=== PATIENT | female | born 1985 | race African-American/Black ===

== ENCOUNTER 2023-12-04 13:39 | Emergency (ER) | payer BC, SELFPAY ==
--- NOTE | ~2023-12-04 | CT_ITS ---
CT abdomen pelvis w con Ordering provider: Jimi Chaney MD History: 38 years Female with . Diffuse abdominal chela. Epigastric and bilat lwr . Comparison: None. Technique: CT abdomen and pelvis with IV and without oral contrast. Automated exposure control and it erative reconstruction technique were employed. The dose-length product was 210.45 mGy-cm. 100 mL Omn ipaque 350 was given IV. Findings: VISUALIZED LOWER CHEST: Normal. UPPER ABDOMINAL ORGANS: Liver: Normal. Gallbladder: Status post cholecystectomy. Spleen: Normal. Stomach/duodenum: Normal. Pancreas: Normal. Adrenals: Normal. Kidneys: Normal. PELVIC ORGANS: The bladder is normal. Uterus: Bulky. Hypodense area seen in the right ovary most lik fabrice a ruptured follicle. BOWEL AND MESENTERY: Colon: No evidence of diverticulitis. Normal appendix. Small Bowel: Slight thickening of the wall in the jejunal area which may indicate enteritis. Clinical correlation advised. No obstruction. Peritoneum/mesentery: No free air or free fluid. No mesenteric lymphadenopathy. RETROPERITONEUM: Normal aorta. No retroperitoneal lymphadenopathy. MUSCULOSKELETAL: Superficial soft tissues: The superficial soft tissues are normal. Bones: Normal spine. IMPRESSION: 1. No evidence of appendicitis, diverticulitis or intestinal obstruction. 2. Ruptured follicle in the right. 3. Slight thickening of the jejunal loops wall which may indicate enteritis. Clinical correlation ad vised. Reviewed, dictated and finalized at location A. IMPRESSION: 1. No evidence of appendicitis, diverticulitis or intestinal obstruction. 2. Ruptured follicle in the right. 3. Slight thickening of the jejunal loops wall which may indicate enteritis. C linical correlation advised.
--- NOTE | ~2023-12-04 | XR_ITS ---
XR chest 1V portable Ordering provider: Jimi Chaney MD History: 38 years Female with . Chest pain . Comparison: None. FINDINGS: MEDIASTINUM: The cardiac silhouette is not enlarged. LUNGS: No infiltrates, effusions or pneumothorax. OTHER: No free air under the diaphragm. IMPRESSION: No acute cardiopulmonary pathology. Reviewed, dictated and finalized at location A.
[2023-12-04 13:44] VITALS: BP 114/83; PULSE 77; RESP 16; TEMP 36.7; O2SAT 100
[2023-12-04 14:01] VITALS: BP 113/73; PULSE 81; RESP 17; O2SAT 99
--- NOTE | 2023-12-04 14:02 | ECG_ITS ---
Test Date: 2023-12-04 14:32:06 Measurements Intervals [place] Rate: 63 P: 78 WV: 145 QRS: 84 QRSD: 89 T: 51 QT: 379 QTc: 390 Interpretive Statements SINUS RHYTHM No previous ECG available for comparison Electronically Signed On 12-05-2023 09:48:52 CDT by Jim Rojas M.D.
[2023-12-04 14:16] VITALS: BP 109/63; O2SAT 100
[2023-12-04] MEDS: SODIUM CHLORIDE 0.9% IV 1,000 ML 999 ML IV CONT (14:18)
[2023-12-04] MEDS: MAG HYDROX/AL HYDROX/SIMETH 30 ML UDC PO (14:20)
[2023-12-04] MEDS: FAMOTIDINE 20 MG/2 ML VIAL IV PUSH (14:20)
[2023-12-04 14:23] LABS: Basophils Percent Auto 0.5 % (0.2-1.2); Eosinophils Percent Auto 0.5 % (0-4.4); Hematocrit 35.1 % (37.0-47.0); Hemoglobin 11.6 g/dL (12.0-15.0); Immature Granulocyte Absolute 0.02 K/mm3 (0.00-0.031); Immature Granulocyte Percent A 0.2 % (0-0.5); Lymphocytes Absolute Auto 2.76 K/mm3 (0.9-3.2); Lymphocytes Percent Auto 32.4 % (18.3-44.2); Mean Corpuscular Hemoglobin 30.7 pg (26-34); Mean Corpuscular Volume 92.9 fl (80-100); Mean Platelet Volume 9.4 fl (7.4-10.4); Monocytes Absolute Auto 0.7 K/mm3 (0.1-0.6); Monocytes Percent Auto 7.9 % (2.6-8.5); Neutrophils Percent Auto 58.5 % (45.5-73.1); Platelet Count Result 266 k/mm3 (150-375); Red Blood Count 3.78 M/mm3 (4.2-5.4); Red Cell Distribution Width 11.9 % (11.5-14.5); White Blood Count 8.5 K/mm3 (4.5-10.0)
[2023-12-04 14:33] LABS: Prothrombin Time 13.2 Seconds (11.1-14.7)
[2023-12-04 14:34] LABS: Partial Thromboplastin Time 28.5 Seconds (22.3-36.8)
[2023-12-04 14:35] LABS: Alanine Aminotransferase 11 U/L (6-35); Albumin Level 4.1 g/dL (3.5-5.1); Alkaline Phosphatase 62 U/L (38-126); Anion Gap 7 mmol/L (4-12); Aspartate Amino Transferase 25 U/L (14-36); Bilirubin,Total 0.2 mg/dL (0.2-1.3); Blood Urea Nitrogen 17 mg/dL (7-17); Calcium 9.2 mg/dL (8.4-10.2); Carbon Dioxide 25 mmol/L (22-30); Chloride 104 mmol/L (98-107); Estimated CRCL calculation 54 ml/min; Estimated Glomerular Filt Rate > 60; Glucose 107 mg/dL (65-110); Lipase 90 U/L (23-300); Magnesium 1.9 mg/dL (1.6-2.3); Sodium 136 mmol/L (137-145)
[2023-12-04 15:23] LABS: Add Urine Microscopic? NO; Appearance Urine Clear (Clear); Bilirubin Urine Negative (Negative); Blood Urine Negative (Negative); Color Urine Yellow (Yellow); Glucose Urine UA Negative (Negative); Ketones Urine Negative (Negative); Leukocyte Esterase Ur Negative LEU/UL (Negative); Nitrate Urine Negative (Negative); Protein Urine Negative (Negative); Specific Grav Ur 1.024 (1.001-1.035); Urobilinogen Urine 0.2 mg/dL (<2.0)
[2023-12-04 15:37] LABS: BEDSIDEPREGUCG Negative
[2023-12-04 15:40] VITALS: BP 111/51; PULSE 74; O2SAT 100
[2023-12-04 15:48] LABS: Amphetamine Screen Urine Negative (Negative); Barbiturate Screen Urine Negative (Negative); Benzodiazepines Screen Urine Negative (Negative); Cannabinoid Screen Urine Negative (Negative); Cocaine Screen Urine Negative (Negative); Methadone Screen Urine Negative (Negative); Opiate Screen Urine Negative (Negative); Phencyclidine Screen Urine Negative (Negative)
--- NOTE | 2023-12-04 15:57 | ED.GENADULT ---
HPI - General Adult General Chief complaint: Abdominal Pain Stated complaint: abd pain Time Seen by Provider: 12/04/23 13:52 History of Present Illness HPI narrative: This is a 38-year-old female presenting ED with abdominal pain. Patient describes the pain a burning pain in the epigastric area that is associated with some throat discomfort. Pain is nonradiating. Mild intensity and constant. Patient has never had pain like this before she notes no exacerbating or alleviating factors. She denies fevers chills nausea vomiting or diarrhea. Related Data Allergies Allergy/AdvReac Type Severity Reaction Status Date / Time No Known Allergies Allergy Verified 12/04/23 13:49 Exam Narrative: APPEARANCE: No apparent distress. Well-appearing Head: atraumatic. No erythema or exudates in the posterior oropharynx EYES: EOMI, NOSE: Atraumatic NECK: Trachea midline RESPIRATORY: No increased rate of breathing clear to auscultation CARDIOVASCULAR: RRR, ABDOMINAL: Tenderness palpation the epigastric area without guarding or rebound MUSCULOSKELETAl: No obvious deformities NEURO: Alert. Moving 4/4 extremities SKIN:: Warm, dry. Normal color PSYCHIATRIC: Normal affect Course Vital Signs Vital signs: Vital Signs Temperature 98.0 F 12/04/23 13:44 Pulse Rate 77 12/04/23 13:44 Respiratory Rate 16 12/04/23 13:44 Blood Pressure 114/83 12/04/23 13:44 Pulse Oximetry 100 12/04/23 13:44 Oxygen Delivery Room Air 12/04/23 13:44 Temperature 98.0 F 12/04/23 13:44 Pulse Rate 74 12/04/23 15:40 Respiratory Rate 17 12/04/23 14:01 Blood Pressure 111/51 L 12/04/23 15:40 Pulse Oximetry 100 12/04/23 15:40 Oxygen Delivery Room Air 12/04/23 13:44 Medical Decision Making [facility] Narrative Medical decision making narrative: -Course: 38-year-old female presenting epigastric pain and throat discomfort symptoms which are most consistent with reflux. She was given Maalox and Pepcid with improvement in her pain. Laboratory studies unremarkable. CT showed some mild inflammation of the jejunum which is consistent with enteritis. On re-evaluation patient is resting comfortably. Patient will be discharged course Pepcid instructed to follow-up with her primary care physician. Given return precautions. -DDX includes but is not limited to: Gastritis, GERD -Independent interpretation of studies: Labs reviewed. Imaging reviewed -Interventions: Maalox, Pepcid 1 L normal saline -Shared decision making / Disposition: Discharge -RX pepcid Vital Signs Vital Signs: Vital Signs Temperature 98.0 F 12/04/23 13:44 Pulse Rate 77 12/04/23 13:44 Respiratory Rate 16 12/04/23 13:44 Blood Pressure 114/83 12/04/23 13:44 Pulse Oximetry 100 12/04/23 13:44 Oxygen Delivery Room Air 12/04/23 13:44 Temperature 98.0 F 12/04/23 13:44 Pulse Rate 74 12/04/23 15:40 Respiratory Rate 17 12/04/23 14:01 Blood Pressure 111/51 L 12/04/23 15:40 Pulse Oximetry 100 12/04/23 15:40 Oxygen Delivery Room Air 12/04/23 13:44 Lab Data 12/04/23 14:12 12/04/23 14:12 Labs: Lab Results 12/04/23 12/04/23 12/04/23 Range/Units 13:55 14:12 14:12 WBC Cancelled 8.5 RBC Cancelled Hgb Hct MCV MCH MCHC RDW Plt Count MPV Immature Gran % (Auto) Neut % (Auto) Lymph % (Auto) Custer % (Auto) Eos % (Auto) Baso % (Auto) Lymph # (Auto) [place] # (Auto) Eos # (Auto) Baso # (Auto) Abs Immat Gran (auto) Absolute Neuts (auto) Absolute Nucleated RBC Nucleated RBC % % Immature Plt Fraction PT (11.1-14.7) Seconds INR APTT (22.3-36.8) Seconds Sodium Potassium Chloride Carbon Dioxide Anion Gap BUN Creatinine Estim Creat Clear Calc Estimated GFR Glucose Calcium Magnesium (1.6-
== END 2023-12-04 16:14 | disposition home or self-care (01) ==
PROVIDERS: Emergency Provider Emergency Medicine
DX: K21.9 Gastro-esophageal reflux disease without esophagitis (principal)
CPT/HCPCS: 36415; 71045; 74177; 80053; 80307; 81003; 81025; 83690; 83735; 85025; 85610; 85730; 93005; 96361; 96374; 99284; A9270; J7030; Q9967

== ENCOUNTER 2024-04-06 15:32 | Emergency (ER) | payer OTHER, SELFPAY ==
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
[2024-04-06 16:15] VITALS: BP 113/84; PULSE 77; RESP 20; TEMP 37.4; O2SAT 100
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
[2024-04-06 17:10] LABS: BEDSIDEPREGUCG Negative (Negative)
[2024-04-06] MEDS: traMADol HCL (*CRX) 50 MG TABLET PO (17:29)
[2024-04-06] MEDS: ORPHENADRINE CITRATE 100 MG TABLET.ER PO (17:29)
[2024-04-06 17:55] VITALS: PULSE 78; RESP 20; O2SAT 100
== END 2024-04-06 18:02 | disposition home or self-care (01) ==
LOC: ANHED 17:57
PROVIDERS: Emergency Provider Nurse Practitioner Family
DX: S16.1XXA Strain of muscle, fascia and tendon at neck level, initial encounter (principal); S29.012A Strain of muscle and tendon of back wall of thorax, initial encounter; V43.52XA Car driver injured in collision with other type car in traffic accident, initial encounter
CPT/HCPCS: 72125; 72128; 73030; 81025; 99284; A9270

== ENCOUNTER 2024-05-21 09:29 | Outpatient (CLI) | payer OTHER, SELFPAY ==
--- OUTSIDE RECORDS SUMMARY | 2024-05-21 10:02 | XMS_ITS | Patient Health Record ---
Author Organization [facility] Address [address] [place] [address] Care Team Providers Care Security Operations Center Analyst Name Role Phone Lacy Alicia Primary Care Provider [phone] Teresa Benson [phone] Allergies No Known Allergies Results Component Value Reference Range Notes Hemoglobin A1c* Reviewed date:12/30/2023 08:30:05 AM Interpretation:Normal Performing Lab:[facility], [address] [facility], Phone - [phone], Director - Marlena Notes/Report: Hemoglobin A1c 5.1 4.8-5.6 % . Prediabetes: 5.7 - 6.4 Diabetes: >6.4 Glycemic control for adults with diabetes: <7.0 CBC With Differential/Platel et* Reviewed date:12/30/2023 08:30:05 AM Interpretation:Normal Performing Lab:[facility], [address] [facility], Phone - [phone], Director - PhDMeron Notes/Report: WBC 8.7 3.4-10.8 x10E3/uL RBC 3.90 3.77-5.28 x10E6/uL Hemoglobin 11.8 11.1-15.9 g/dL Hematocrit 38.0 34.0-46.6 % MCV 97 79-97 fL MCH 30.3 26.6-33.0 pg MCHC 31.1 31.5-35.7 g/dL RDW 11.5 11.7-15.4 % Platelets 356 150-450 x10E3/uL Neutrophils 56 Not Estab. % Lymphs 34 Not Estab. % Monocytes 7 Not Estab. % Eos 2 Not Estab. % Basos 1 Not Estab. % Neutrophils (Absolute) 4.9 1.4-7.0 x10E3/uL Lymphs (Absolute) 2.9 0.7-3.1 x10E3/uL Monocytes(Absolute) 0.6 0.1-0.9 x10E3/uL Eos (Absolute) 0.1 0.0-0.4 x10E3/uL Baso (Absolute) 0.1 0.0-0.2 x10E3/uL Immature Granulocytes 0 Not Estab. % Immature Grans (Abs) 0.0 0.0-0.1 x10E3/uL Vitamin D, 25-Hydroxy* Reviewed date:12/30/2023 08:30:06 AM Interpretation:Low Performing Lab:[facility] [address] [facility] [facility], Phone - [phone], Director - PhDMeron Notes/Report: Vitamin D, 25-Hydroxy 17.6 30.0-100.0 ng/mL Vitamin D deficiency has been defined by the [place] of Medicine and an Endocrine Society practice guideline as a level of serum 25-OH vitamin D less than 20 ng/mL (1,2). The Endocrine Society went on to further define vitamin D insufficiency as a level between 21 and 29 ng/mL (2). 1. IOM ([place] of Medicine). 2010. Dietary reference intakes for calcium and D. [place]: The National Academies Press. 2. Billy MF, Prakash NC, Robert DAVIS, et al. Evaluation, treatment, and prevention of vitamin D deficiency: an Endocrine Society clinical practice guideline. JCEM. 2010; 96(7):1911-30. Lipid Panel* Reviewed date:12/30/2023 08:30:06 AM Interpretation:Normal Performing Lab:[facility], [address], [place], Phone - [phone], Director - PhDMeron Notes/Report: Cholesterol, Total 175 100-199 mg/dL Triglycerides 47 0-149 mg/dL HDL Cholesterol 68 >39 mg/dL VLDL Cholesterol Brandon 10 5-40 mg/dL LDL Chol Calc ([facility]) 97 0-99 mg/dL CMP 14 Comprehensive Metabol ic Panel* Reviewed date:12/30/2023 08:30:06 AM Interpretation:Abnormal Performing Lab:[facility], [address] [facility], Phone - [phone], Director - [facility] Notes/Report: Glucose 95 70-99 mg/dL BUN 6 6-20 mg/dL Creatinine 0.90 0.57-1.00 mg/dL eGFR 85 >59 mL/min/1.73 BUN/Creatinine Ratio 7 9-23 Sodium 137 134-144 mmol/L Potassium 4.8 3.5-5.2 mmol/L Chloride 103 96-106 mmol/L Carbon Dioxide, Total 23 20-29 mmol/L Calcium 9.4 8.7-10.2 mg/dL Protein, Total 6.8 6.0-8.5 g/dL Albumin 4.4 3.9-4.9 g/dL Globulin, Total 2.4 1.5-4.5 g/dL Bilirubin, Total 0.2 0.0-1.2 mg/dL Alkaline Phosphatase 63 44-121 IU/L AST (SGOT) 18 0-40 IU/L ALT (SGPT) 12 0-32 IU/L TSH Rfx on Abnormal to Free T4 Reviewed date:12/30/2023 08:30:06 AM Interpretation:Normal Performing Lab:[facility] [place], [address] [facility], Phone - [phone], Director - [facility] Notes/Report: TSH 1.290 0.450-4.500 uIU/mL Reason For Referral No Information Medications Medication SIG (Take, Route, Frequency, Duration) Notes Start Date End Date Status DHA 300 MG as directed Orally o nce daily for 30 days 04/28/2020 Active Vitamins 28-0.8 MG 1 tablet Orally Once a day for 30 days 12/25/2023 Active Omeprazole 20 MG 1 capsule 30 minutes before morning meal Orally Once a day for 30 day(s) 05/28/2022 Not-Taking ProAir HFA 108 (90 Base) MCG/ACT 1 puff as needed Inhalation every 4 hrs for 14 days 04/26/2021 Not-Taking Cetirizine HCl 10 MG 1 tablet Orally Onc e a day for 30 day(s) 04/28/2020 Not-Taking Naproxen 500 MG TAKE 1 TABLET BY RYLEE TH EVERY 12 HOURS WITH FOOD OR MILK NEEDED for 30 Not-Miguel ing Famotidine 40 MG 1 tablet Orally Once a day for 30 days 12/25/2023 Active Vitamin D (Ergocalciferol) 1.25 MG (15673 UT) TAKE 1 CAPSULE BY MOUTH 1 TIME WEEKLY FOR 8 WEEKS Orally Once weekly for 30 days Active Social History Tobacco Use: Social History Observation Description Date Details (start date - stop date) Current Smoker NA - NA Sex Assigned At : Social History Observation Description Sex Assigned At Female Dont use, Tobacco Use/Smoking Question Answer Notes Are you a former smoker How long has it been since you last smoked? 1-5 years Alcohol Screen (Audit-C) Question Answer Notes Did you have a drink containing alcohol in the p ast year? Yes Tobacco Control (Standard) Question Answer Notes Tobacco use: Current smoker Problems Problem Type SNOMED Code ICD Code Onset Dates Problem Status W/U Status Risk Notes Problem Vitamin D deficiency (67100457) Vitamin D deficiency, unspecified (E55.9) Active confirmed Problem Tobacco user (896082097) Nicotine dependence, unspecified, uncomplicated (F17.200) Active confirmed Problem Abnormal uterine bleeding (03918236238633) Abnormal uterine and vaginal bleeding, unspecified (N93.9) Active confirmed Problem Gastroesophageal reflux disease (993447515) GERD (gastroesophagea l reflux disease) (K21.9) Active confirmed Problem Vitamin D deficiency (23697692) Vitamin D deficiency (E55.9) Active confirmed Problem (37600318) (Z33.1) Active confirmed Problem Impacted cerumen of both ears (4481895755754364) Impacted cerumen of both ears (H61.23) Active confirmed Problem 250183339 Migraine without aura and without status migrainosus, not intractable (G43.009) Active confirmed Problem 939257822 Family planning (Z30.09) Active confirmed Problem Tobacco use (087332538) Tobacco use disorder (F17.200) Active confirmed Problem Right tubal without intrauterine (O00.101) Active confirmed Problem Left tubal with intrauterine (O00.112) Active confirmed Problem 013632222 Seasonal allergic rhinitis, unspecified trigger (J30.2) Active confirmed Vital Signs Heart Rate 67 /min 12/25/2023 Respiratory Rate 16 /min 12/25/2023 Blood pressure diastolic 69 mm Hg 12/25/2023 Oximetry 99 % 12/25/2023 Height 63 in 12/25/2023 Blood pressure systolic 104 mm Hg 12/25/2023 Weight 125.2 lbs 12/25/2023 BMI 22.18 kg/m2 12/25/2023 Encounters Encounter Location Date Provider Diagnosis [address] [address] 07/04/2023 Lacy Alicia Nicotine dependence, unspecified, uncomplicated F17.[address] [address] 12/25/2023 Teresa Benson Nicotine dependence, unspecified, uncomplicated F17.200 ; Pre-conception counseling Z31.69 ; Vitamin D deficiency, unspecified E55.9 ; Acid reflux K21.9 ; Screening for deficiency anemia Z13.0 ; Screening for metabolic disorder Z13.228 ; Screening for diabetes mellitus Z13.1 ; Screening for thyroid disorder Z13.29 and Screening for hyperlipidemia Z13.[address] [address] 12/25/2023 Teresa Benson Screening for diabet es mellitus Z13.1 ; Screening for deficiency anemia Z13.0 ; UTI symptoms R39.9 ; Vitamin D deficiency, unspecified E55.9 ; Screening for hyperlipidemia Z13.220 ; Screening for metabolic disorder Z13.228 and Screening for thyroid disorder Z13.[address] [address] 07/05/2023 Lacy Alicia Left hand pain M79.[address] [address] 08/14/2023 Lacymaggie Alicia UTI symptoms R39.9 and Vaginal discharge N89.[address] [address] 12/30/2023 Teresa Benson Vitamin D deficiency E55.9 Assessments Encounter Date Diagnosis (ICD Code) Assessment Notes Treatment Notes Treatment Clinical Notes Section Notes 12/25/2023 Pre-conception counseling (ICD-10 - Z31.69) 12/25/2023 Screening for diabetes mellitus (ICD-10 - Z13.1) 12/30/2023 Vitamin D deficiency (ICD-10 - E55.9) 12/25/2023 Nicotine dependence, unspecified, uncomplicated (ICD-10 - F17.200) 08/14/2023 Vaginal discharge (ICD-10 - N89.8) 08/14/2023 UTI symptoms (ICD-10 - R39.9) 07/05/2023 Left hand pain (ICD-10 - M79.642) 07/04/2023 Nicotine dependence, unspecified, uncomplicated (ICD-10 - F17.200) 12/25/2023 Vitamin D deficiency, unspecified (ICD-10 - E55.9) 12/25/2023 Screening for deficiency anemia (ICD-10 - Z13.0) 12/25/2023 UTI symptoms (ICD-10 - R39.9) 12/25/2023 Acid reflux (ICD-10 - K21.9) 12/25/2023 Vitamin D deficiency, unspecified (ICD-10 - E55.9) 12/25/2023 Screening for deficiency anemia (ICD-10 - Z13.0) 12/25/2023 Screening for metabolic disorder (ICD-10 - Z13.228) 12/25/2023 Screening for hyperlipidemia (ICD-10 - Z13.220) 12/25/2023 Screening for metabolic disorder (ICD-10 - Z13.228) 12/25/2023 Screening for diabetes mellitus (ICD-10 - Z13.1) 12/25/2023 Screening for thyroid disorder (ICD-10 - Z13.29) 12/25/2023 Screening for thyroid disorder (ICD-10 - Z13.29) 12/25/2023 Screening for hyperlipidemia (ICD-10 - Z13.220) Plan Of Treatment No Information Insurance Providers Payer Name Payer Address Payer Phone Subscriber Number Group Number Insured Name Patient Relationship to Insured Coverage Start Date Coverage End Date [address] [address] [id number] Lang, Geena Self - patient is the insured 3 4 [facility] [address] [place] [address] [id number] Geena Preston Self - patient is the insured 4 [facility] [address] [place] [address] [id number] Geena Preston Self - patient is the insured 3 3 [facility] [address] [address] [place] [address] [id number] Geena Preston Self - patient is the insured 3 3 [facility] Att[facility] Claims Department [address] [place] [address] [phone] [id number] Geena Preston Self - patient is the insured 1 3 Medical (General) History Medical History History ICD Code Right tubal without intrauteri ne O00.101 Left tubal with intrauterine p regnancy O00.112 Surgical History Surgery Date(Month/Year) L ankle pins Hospitalization History Reason Date(Month/Year)
--- OUTSIDE RECORDS SUMMARY | 2024-05-21 10:02 | XMS_ITS | Clinical Summary ---
Author Organization [facility] Address [address] [place] [address]. 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 [place] [address] Kimberly Pulido DO [address] [place], [place] [id number] Health Maintenance Due Date Last Done Comments Cervical Cancer Screening Pa p Smear (Age 30 to 64) Every 3 Years 1987 Annual Physical 1990 Hepatitis C 2005 DTaP, Tdap and Td Vaccines ( 1 - Tdap) 2006 Hepatitis B Vaccines (1 of 3 - 19+ 3-dose series) 2006 Cervical Cancer Screening Pa p with HPV Testing (Age 30 to 64) Every 5 Years 2017 Cervical Cancer Screening with HPV 2017 COVID-19 Vaccine (2023-2 5 season) 2023 Influenza Adult (#1) 2024 PHQ-2 (Physician Teller) 04/22/2024 HPV Vaccines Aged Out No longer eligi ble based on patient's age to complete this topic Meningococcal B Vaccine Aged Out No l onger eligible based on patient's age to complete this topic Meningococcal Vaccine Aged Out No edwin brenna eligible based on patient's age to complete this topic Pneumococcal Vaccine: Pediat rics (0 to 5 Years) and At-Risk Patients (6 to 64 Years) Aged Out No longer eligible b ased on patient's age to complete this topic RSV Immunizations Under 20 Months Aged Out No longer eligible based on patient's age to complete this topic Insurance [facility] Care Teams Director Of First Impressions Relationship Specialty Start Date End Date Kimberly Pulido DO [address] [place] [address] PCP - General FAMILY PRACTICE 03/05/24
--- OUTSIDE RECORDS SUMMARY | 2024-05-21 10:02 | XMS_ITS ---
Author Organization [facility] Address [address] [place] [address] Care Team Providers Care Biomass Production Manager Name Role Phone Lacy Alicia Primary Care Provider Teresa Benson [phone] Results Component Value Reference Range Notes TSH Rfx on Abnormal to Free T4 Reviewed date:12/30/2023 08:30:06 AM Interpretation:Normal Performing Lab:[facility], [address] [facility] Phone - [phone], Director - Marcial Notes/Report: TSH 1.290 0.450-4.500 uIU/mL CMP 14 Comprehensive Metabol ic Panel* Reviewed date:12/30/2023 08:30:06 AM Interpretation:Abnormal Performing Lab:[facility], [address] [facility] Phone - [phone], [facility] Notes/Report: Glucose 95 70-99 mg/dL BUN 6 [...] 0-40 IU/L ALT (SGPT) 12 0-32 IU/L Lipid Panel* Reviewed date:12/30/2023 08:30:06 AM Interpretation:Normal Performing Lab:[facility] [place], [address] [facility], Phone - [phone], Director - [facility] Notes/Report: Cholesterol, Total 175 100-199 mg/dL Triglycerides 47 0-149 mg/dL HDL Cholesterol 68 >39 mg/dL VLDL Cholesterol Brandon 10 5-40 mg/dL LDL Chol Calc (NIH) 97 0-99 mg/dL CBC With Differential/Platel et* Reviewed date:12/30/2023 08:30:05 AM Interpretation:Normal Performing Lab:[facility], [address] [facility] Phone - [phone], Director - [facility] Notes/Report: WBC 8.7 3.4-10.8 x10E3/uL RBC 3.90 [...] % Immature Grans (Abs) 0.0 0.0-0.1 x10E3/uL Hemoglobin A1c* Reviewed date:12/30/2023 08:30:05 AM Interpretation:Normal Performing Lab:[facility] [place], [address] [facility], Phone - [phone], Director - Marlena Notes/Report: Hemoglobin A1c 5.1 4.8-5.6 % . Prediabetes: 5.7 - 6.4 Diabetes: >6.4 Glycemic control for adults with diabetes: <7.0 Vitamin D, 25-Hydroxy* Reviewed date:12/30/2023 08:30:06 AM Interpretation:Low Performing Lab:[facility] [place], [address] [facility], Phone - [phone], Director - Marlena Notes/Report: Vitamin D, 25-Hydroxy 17.6 30.0-100.0 ng/mL Vitamin D deficiency has been defined by the [place] of Medicine and an Endocrine Society practice guideline as a level of serum 25-OH vitamin D less than 20 ng/mL (1,2). The Endocrine Society went on to further define vitamin D insufficiency as a level between 21 and 29 ng/mL (2). 1. IOM ([place] of Medicine). 2010. Dietary reference intakes for calcium and D. [place]: The National Academies Press. 2. Billy MF, Prakash NC, Robert DAVIS, et al. Evaluation, treatment, and prevention of vitamin D deficiency: an Endocrine Society clinical practice guideline. JCEM. 2010; 96(7):1911-30. REASON FOR VISIT lab Medications Medication SIG (Take, Route, Frequency, Duration) Notes Start Date End Date Status DHA 300 MG as directed Orally once daily for 30 days 04/28/2020 Active Cetirizine HCl 10 MG 1 tablet Orally Once a day for 30 day(s) 04/28/2020 Not-Taking Vitamin D (Ergocalciferol) 1.25 MG (52280 UT) TAKE 1 CAPSULE BY MOUTH 1 TIME WEEKLY FOR 8 WEEKS for 56 will need to repeat blood work before any refills. Thank you Active Naproxen 500 MG TAKE 1 TABLET BY MOUTH EVERY 12 HOURS WITH FOOD OR MILK NEEDED for 30 Not-Taking Famotidine 40 MG 1 tablet Orally Once a day for 30 days 12/25/2023 Active Omeprazole 20 MG 1 capsule 30 minutes before morning meal Orally Once a day for 30 day(s) 05/28/2022 Not-Taking ProAir HFA 108 (90 Base) MCG/ACT 1 puff as needed Inhalation every 4 hrs for 14 days 04/26/2021 Not-Taking Social History Sex Assigned At : Social History Observation Description Sex Assigned At Female Encounters Encounter Location Date Provider Diagnosis [address] [place] [address] 12/25/2023 Teresa Benson Screening for diabet es mellitus Z13.1 ; Screening for deficiency anemia Z13.0 ; UTI symptoms R39.9 ; Vitamin D deficiency, unspecified E55.9 ; Screening for hyperlipidemia Z13.220 ; Screening for metabolic disorder Z13.228 and Screening for thyroid disorder Z13.29 Assessments Encounter Date Diagnosis (ICD Code) Assessment Notes Treatment Notes Treatment Clinical Notes Section Notes 12/25/2023 Screening for diabetes mellitus (ICD-10 - Z13.1) 12/25/2023 Screening for deficiency anemia (ICD-10 - Z13.0) 12/25/2023 UTI symptoms (ICD-10 - R39.9) 12/25/2023 Vitamin D deficiency, unspecified (ICD-10 - E55.9) 12/25/2023 Screening for hyperlipidemia (ICD-10 - Z13.220) 12/25/2023 Screening for metabolic disorder (ICD-10 - Z13.228) 12/25/2023 Screening for thyroid disorder (ICD-10 - Z13.29) Plan Of Treatment No Information Progress Notes * Geoffrey PRESTONB:1985 ([age] yo F)Acc No.[id number]:12/25/2023 Patient:?ELLY Geena Provider:?Teresa Benson APRN :1985???Age:38 Y???Sex:Female D ate:12/25/2023 Address:[facility] [place] [facility] Pcp:Lacy Alicia Subjective: * Chief Complaints: * ???1. Lab. * Medical History:? * Medications:?Taking Vitamin D (Ergocalciferol) 1.25 MG (97826 UT) Capsule TAKE 1 CAPSULE BY MOUTH 1 TIME WEEKLY FOR 8 WEEKS , Notes to Pharmacist: will need to repeat blood work before any refills. Thank you, Taking Famotidine 40 MG Tablet 1 tablet Orally Once a day , Taking DHA 300 MG Capsule as directed Orally once daily , Not-Taking Omeprazole 20 MG Capsule Delayed Release 1 capsule 30 minutes before morning meal Orally Once a day , Not-Taking ProAir HFA 108 (90 Base) MCG/ACT Aerosol Solution 1 puff as needed Inhalation every 4 hrs , Not-Taking Cetirizine HCl 10 MG Tablet 1 tablet Orally Once a day , Not-Taking Naproxen 500 MG Tablet TAKE 1 TABLET BY MOUTH EVERY 12 HOURS WITH FOOD OR MILK NEEDED Objective: * Vitals:? Assessment: * Assessment: 1.?Screening for diabetes me llitus - Z13.1???2.?Screening for deficiency anemia - Z13.0???3.?UTI symptoms - R39.9???4.?Vitamin D deficiency, unspecified - E55.9???5.?Screening for hyperlipidemia - Z13.220? ?6.?Screening for metabolic disorder - Z13.228???7.?Screening for thyroid disorder - Z13.29??? Plan: * Treatment: ? Value Reference Range ?Hemoglobin A1c 5.1 4.8-5.6 - % * Chana Mcadams 12/25/2023 1 1:00:10 AM CDT > Specimen collected, patient tolerated well. See TE dated 12/30/23This lab was reviewed by Teresa Benson on 12/30/2023 at 08:30 AM CDT 2.?Screening for deficiency anemia?LAB: CBC With Differential/Platelet* (Collection Date & Time - 12/25/2023) * ? Value Reference Range ?Immature Grans (Abs) 0.0 0. 0-0.1 - x10E3/uL * ?Immature Granulocytes 0 N ot Estab. - % * ?Baso (Absolute) 0.1 0.0-0.2 - x10E3/uL * ?Neutrophils (Absolute) 4.9 1.4-7.0 - x10E3/uL * ?RBC 3.90 3.77-5.28 - x10 E6/uL * ?Monocytes(Absolute) 0.6 0.1 -0.9 - x10E3/uL * ?WBC 8.7 3.4-10.8 - x10E 3/uL * ?Eos (Absolute) 0.1 0.0-0.4 - x10E3/uL * ?Hemoglobin 11.8 11.1-15.9 - g/dL * ?Hematocrit 38.0 34.0-46.6 - % * ?MCV 97 79-97 - fL * ?MCH 30.3 26.6-33.0 - pg * ?MCHC 31.1 L 31.5-35.7 - g/d L * ?RDW 11.5 L 11.7-15.4 - % * ?Lymphs (Absolute) 2.9 0.7-3 .1 - x10E3/uL * ?Basos 1 Not Estab. - % * ?Eos 2 Not Estab. - % * ?Monocytes 7 Not Estab. - % * ?Lymphs 34 Not Estab. - % * ?Neutrophils 56 Not Estab. - % * ?Platelets 356 150-450 - x10 E3/uL * Chana Mcadams 12/25/2023 1 1:00:10 AM CDT > Specimen collected, patient tolerated well. See TE dated 12/30/23This lab was reviewed by Teresa Benson on 12/30/2023 at 08:30 AM CDT 3.?Vitamin D deficiency, unspecified?LAB: Vitamin D, 25-Hydroxy* (Collection Date & Time - 12/25/2023)* ? Value Reference Range ?Vitamin D, 25-Hydroxy 17.6 L 3 0.0-100.0 - ng/mL * Chana Mcadams 12/25/2023 1 1:00:10 AM CDT > Specimen collected, patient tolerated well. See TE dated 12/30/23This lab was reviewed by Teresa Benson on 12/30/2023 at 08:30 AM CDT 4.?Screening for hyperlipidemia?LAB: Lipid Panel* (Collection Date & Time - 12/25/2023)* ? Value Reference Range ?Triglycerides 47 0-149 - m g/dL * ?HDL Cholesterol 68 >39 - m g/dL * ?Cholesterol, Total 175 100- 199 - mg/dL * ?VLDL Cholesterol Brandon 10 5- 40 - mg/dL * ?LDL Chol Calc (NIH) 97 0-9 9 - mg/dL * Chana Mcadams 12/25/2023 1 1:00:10 AM CDT > Specimen collected, patient tolerated well. See TE dated 12/30/23This lab was reviewed by Teresa Benson on 12/30/2023 at 08:30 AM CDT 5.?Screening for metabolic disorder?LAB: CMP 14 Comprehensive Metabolic Panel* (Collection Date & Time - 12/25/2023)* ? Value Reference Range ?Calcium, Serum 9.4 8.7-10.2 - mg/dL * ?AST (SGOT) 18 0-40 - IU/L * ?Alkaline Phosphatase, S 63 44-121 - IU/L * ?Bilirubin, Total 0.2 0.0-1. 2 - mg/dL * ?Protein, Total, Serum 6.8 6 .0-8.5 - g/dL * ?Albumin, Serum 4.4 3.9-4.9 - g/dL * ?ALT (SGPT) 12 0-32 - IU/L * ?Carbon Dioxide, Total 23 2 0-29 - mmol/L * ?Globulin, Total 2.4 1.5-4.5 - g/dL * ?Chloride, Serum 103 96-106 - mmol/L * ?Potassium, Serum 4.8 3.5-5. 2 - mmol/L * ?Sodium, Serum 137 134-144 - mmol/L * ?BUN/Creatinine Ratio 7 L 9- 23 - * ?Creatinine, Serum 0.90 0.57- 1.00 - mg/dL * ?BUN 6 6-20 - mg/dL * ?Glucose, Serum 95 70-99 - mg/dL * ?eGFR 85 >59 - mL/min/1. 73 * Chana Mcadams 12/25/2023 1 1:00:10 AM CDT > Specimen collected, patient tolerated well. See TE dated 12/30/23This lab was reviewed by Teresa Benson on 12/30/2023 at 08:30 AM CDT 6.?Screening for thyroid disorder?LAB: TSH Rfx on Abnormal to Free T4 (Collection Date & Time - 12/25/2023)* ? Value Reference Range ?TSH 1.290 0.450-4.500 - u IU/mL * Chana Mcadams 12/25/2023 1 1:00:10 AM CDT > Specimen collected, patient tolerated well. See TE dated 12/30/23This lab was reviewed by Teresa Benson on 12/30/2023 at 08:30 AM CDT * * Sign off status: Completed true * Provider:?Teresa Benson APRN Date:?0 12/25/2023 Generated for Jose eden/Buzz/eTransmitting on:?05/21/2024 10:01 AM TOBACCO GROWER
--- OUTSIDE RECORDS SUMMARY | 2024-05-21 10:02 | XMS_ITS ---
Author Organization [facility] Address [address] [place] [address] Care Team Providers Care Surgical Pathologist Name Role Phone Lacy Alicia Primary Care Provider Teresa Benson Unavailable [phone] Allergies No Known Allergies REASON FOR VISIT Transfer from [facility] Medications Medication SIG (Take, Route, Frequency, Duration) Notes Start Date End Date Status Vitamins 28-0.8 MG 1 tablet Orally Once a day for 30 days 12/25/2023 Active DHA 300 MG as directed Orally once daily for 30 days 04/28/2020 Active Cetirizine HCl 10 MG 1 tablet Orally Once a day for 30 day(s) 04/28/2020 Not-Taking Vitamin D (Ergocalciferol) 1.25 MG (21326 UT) TAKE 1 CAPSULE BY MOUTH 1 TIME WEEKLY FOR 8 WEEKS for 56 will need to repeat blood work before any refills. Thank you Active Naproxen 500 MG TAKE 1 TABLET BY MOUTH EVERY 12 HOURS WITH FOOD OR MILK NEEDED for 30 Not-Taking Omeprazole 20 MG 1 capsule 30 minutes before morning meal Orally Once a day for 30 day(s) 05/28/2022 Not-Taking Famotidine 40 MG 1 tablet Orally Once a day for 30 days 12/25/2023 Active ProAir HFA 108 (90 Base) MCG/ACT 1 puff as needed Inhalation every 4 hrs for 14 days 04/26/2021 Not-Taking Social History Sex Assigned At : Social History Observation Description Sex Assigned At Female Vital Signs Weight 125.2 lbs 12/25/2023 Height 63 in 12/25/2023 BMI 22.18 kg/m2 12/25/2023 Blood pressure systolic 104 mm Hg 12/25/19 24 Blood pressure diastolic 69 mm Hg 024 Heart Rate 67 /min 12/25/2023 Oximetry 99 % 12/25/2023 Respiratory Rate 16 /min 12/25/2023 Encounters Encounter Location Date Provider Diagnosis [address] [place] [address] 12/25/2023 Teresa Benson Nicotine dependence, unspecified, uncomplicated F17.200 ; Pre-conception counseling Z31.69 ; Vitamin D deficiency, unspecified E55.9 ; Acid reflux K21.9 ; Screening for deficiency anemia Z13.0 ; Screening for metabolic disorder Z13.228 ; Screening for diabetes mellitus Z13.1 ; Screening for thyroid disorder Z13.29 and Screening for hyperlipidemia Z13.220 Assessments Encounter Date Diagnosis (ICD Code) Assessment Notes Treatment Notes Treatment Clinical Notes Section Notes 12/25/2023 Nicotine dependence, unspecified, uncomplicated (ICD-10 - F17.200) 12/25/2023 Pre-conception counseling (ICD-10 - Z31.69) 12/25/2023 Vitamin D deficiency, unspecified (ICD-10 - E55.9) 12/25/2023 Acid reflux (ICD-10 - K21.9) 12/25/2023 Screening for deficiency anemia (ICD-10 - Z13.0) 12/25/2023 Screening for metabolic disorder (ICD-10 - Z13.228) 12/25/2023 Screening for diabetes mellitus (ICD-10 - Z13.1) 12/25/2023 Screening for thyroid disorder (ICD-10 - Z13.29) 12/25/2023 Screening for hyperlipidemia (ICD-10 - Z13.220) Plan Of Treatment Medication Medication Name Sig Start Date Stop Date Notes Vitamins 28-0.8 MG 1 tablet Ora lly Once a day for 30 days 12/25/2023 Famotidine 40 MG 1 tablet Orally Once a day for 30 days 12/25/2023 Next Appt Details Follow Up: 3 Months, Reason: PROCESS ENG f/u Progress Notes * Yevgeniy PRESTONaDOB:1985 ([age] yo F)Acc No.[id number]:12/25/2023 Progress Notes Patient:?Geena PRESTON Provider:?Teresa Benson APRN :1985???Age:38 Y???Sex:Female D ate:12/25/2023 Address:[address] [place] [address] Pcp:Lacy Alicia Subjective: * Chief Complaints: * ???Transfer from [facility] * HPI: ???Depression Screening:?PHQ-9?Little interest or pleasure in doing things?Not at all,?Feeling down, depressed, or hopeless?Not at all,?Trouble falling or staying asleep, or sleeping too much?Not at all,?Feeling tired or having little energy?Not at all,?Poor appetite or overeating?Not at all,?Feeling bad about yourself or that you are a failure, or have let yourself or your family down?Not at all,?Trouble concentrating on things, such as reading the newspaper or watching television?Not at all,?Moving or speaking so slowly that other people could have noticed; or the opposite, being so fidgety or restless that you have been moving around a lot more than usual?Not at all,?Thoughts that you would be better off or of hurting yourself in some way?Not at all,?Total Score?0.?Screening:?[place] Suicide Severity Rating Scale (LF)?Do you want to initiate with?Screener form,?1. Wish to be : Have you wished you were or wished you could go to sleep and not wake up??No,?2. Suicidal Thoughts: Have you actually had any thoughts of killing yourself??No,?6. Suicide Behaviour: Have you ever done anything,started to do anything, or prepared to end your life??No,?Interpretation:?Low Risk.?CSSRS Interpretation and Follow Up Plan:?CSSRS Interpretation and Follow Up Plan. ?CSSRS Interpretation and Follow Up Plan?CSSRS Screen documented using SF?Yes,?Moderate or High risk requires selection of a follow up plan?CSSRS No/Low: intervention not needed at this time.?Summary:?Pt. of Lacy Panchal last visit was 02/2023 Hx of HPV PAP in 2022, needs repeat PAP- Pt. hair she and her are wanting to try IVF. Dr. Webster on 01/13/24 cosntipation, acid reflux. went to ED last month Vitamin D deficiency. * ROS:?General/Constitutional:?Denies?Change in a ppetite.?Denies?Chills.?Denies?Fatigue.?Denies?Fever.?Denies?Headache.?Denies?We ight loss.?Respiratory:?Denies?Dyspnea.?Cardiovascular:?Denies?Edema.?Denies?Chest pain.?Denies?Claudication.?Gastrointestinal:?Denies?Abdominal pain.?Denies?Blood in stool.?Admits?Constipation.?Admits?Heartburn.?Denies?Nausea.?Denies?Vomiting.?Genitourinary:?urinary problems? Denies.?Musculoskeletal:?Patient denies?musculoskeletal concerns.?Skin:?Denies?Rash.? * Medical History:? * Surgical History:?L ankle pi ns * Hospitalization/Major Diagno stic Procedure:?No Hospitalization History. * Family History:?Father: dece ased 49 yrs, heart issues.?Mother: 59 yrs, pancreatic cancer.?1 brother(s) . .? * Social History:?Primary Social History:?Living Arrangement?Living Arrangement:?Independent Living,?Is this a supportive environment??No.?Alcohol Use?Alcohol Use Frequency:?Weekly or Daily,?Type of alcohol consumed?Liquor Hennesy,?Quanity consumed on those occasions?1-2 glasses.?Illicit Substance Usage?Illicit Substance Usage:?No.?Employment Status?Employment Status:?Unemployed.? * Medications:?TakingPrenatal DHA 300 MG Capsule as directed Orally once daily Vitamin D (Ergocalciferol) 1.25 MG (57570 UT) Capsule TAKE 1 CAPSULE BY MOUTH 1 TIME WEEKLY FOR 8 WEEKS , Notes to Pharmacist: will need to repeat blood work before any refills. Thank bjTaking DHA 300 MG Capsule as directed Orally once daily Taking Vitamin D (Ergocalciferol) 1.25 MG (94002 UT) Capsule TAKE 1 CAPSULE BY MOUTH 1 TIME WEEKLY FOR 8 WEEKS , Notes to Pharmacist: will need to repeat blood work before any refills. Thank youNot-TakingOmeprazole 20 MG Capsule Delayed Release 1 capsule 30 minutes before morning meal Orally Once a day ProAir HFA 108 (90 Base) MCG/ACT Aerosol Solution 1 puff as needed Inhalation every 4 hrs Cetirizine HCl 10 MG Tablet 1 tablet Orally Once a day Naproxen 500 MG Tablet TAKE 1 TABLET BY MOUTH EVERY 12 HOURS WITH FOOD OR MILK NEEDED Medication List reviewed and reconciled with the patientNot-Taking Omeprazole 20 MG Capsule Delayed Release 1 capsule 30 minutes before morning meal Orally Once a day Not-Taking ProAir HFA 108 (90 Base) MCG/ACT Aerosol Solution 1 puff as needed Inhalation every 4 hrs Not-Taking Cetirizine HCl 10 MG Tablet 1 tablet Orally Once a day Not-Taking Naproxen 500 MG Tablet TAKE 1 TABLET BY MOUTH EVERY 12 HOURS WITH FOOD OR MILK NEEDED Medication List reviewed and reconciled with the patient * Allergies:?N.K.D.A.no[Allerg ies Verified] Objective: * Vitals:?Initials: st, Wt:125 .2, Ht: 63, BMI:22.18, BP:104/69, HR:67, Oxygen sat %:99, RR:16, LMP: 11/2023, Pain scale:0. * Examination: ???General Examination: ?GENERAL APPEARANCE:?alert, oriented, well developed, well nourished, in no acute distress.?EYES:?PERRLA, sclera and conjunctiva clear.?EARS?auditory canal clear, tympanic membrane intact, clear, light reflex present.?NOSE:?nares patent, no lesions, septum intact.?ORAL CAVITY:?mucosa moist.?THROAT:?no erythema, no exudate, pharynx normal.?NECK/THYROID:?no cervical lymphadenopathy, no thyromegaly.?SKIN:?warm and dry, no rashes.?HEART:?regular rate and rhythm, no murmurs.?LUNGS:?respirations regular and easy, clear to auscultation bilaterally.?ABDOMEN:?bowel sounds present, soft, nontender, nondistended, no masses palpable, no organomegaly .? Assessment: * Assessment: 1.?Nicotine dependence, unsp ecified, uncomplicated - F17.200???2.?Pre-conception counseling - Z31.69 (Primary)???3.?Vitamin D deficiency, unspecified - E55.9???4.?Acid reflux - K21.9???5.?Screening for deficiency anemia - Z13.0???6.?Screening for metabolic disorder - Z13.228???7.?Screening for diabetes mellitus - Z13.1???8.?Screening for thyroid disorder - Z13.29???9.?Screening for hyperlipidemia - Z13.220??? Plan: * Treatment: 2.?Vitamin D deficiency, uns pecified?LAB: Vitamin D, 25-Hydroxy* (Ordered for 12/25/2023) (Collection Date & Time - 12/25/2023) 3.?Acid reflux? Start Famotidine Tablet, 40 MG, 1 tablet, Orally, Once a day, 30 days, 30, Refills 3.?? 4.?Screening for deficiency anemia?LAB: CBC With Differential/Platelet* (Ordered for 12/25/2023) (Collection Date & Time - 12/25/2023) 5.?Screening for metabolic d isorder?LAB: CMP 14 Comprehensive Metabolic Panel* (Ordered for 12/25/2023) (Collection Date & Time - 12/25/2023) 6.?Screening for diabetes me llitus?LAB: Hemoglobin A1c* (Ordered for 12/25/2023) (Collection Date & Time - 12/25/2023) 7.?Screening for thyroid dis order?LAB: TSH Rfx on Abnormal to Free T4 (Ordered for 12/25/2023) (Collection Date & Time - 12/25/2023) 8.?Screening for hyperlipide kyle?LAB: Lipid Panel* (Ordered for 12/25/2023) (Collection Date & Time - 12/25/2023) * Procedure Codes:?09587 BEHAV CHNG SMOKING 3-10 MIN * Preventive Medicine:? ??Counseling:?SMOKING:?Patient counselled on the dangers of tobacco use and urged to quit.?..? * Follow Up:?3 Months (Reason: PROCESS ENG f/u) * * Sign off status: Completed true * Provider:?Teresa Benson, EMA Date:?0 12/25/2023 Generated for Jose eden/Buzz/eTransmitting on:?05/21/2024 10:01 AM LABORATORY SCIENTIST History and Physical Notes * HPI (History of Present Illness) Category Sub-Category Detail Notes Category Not es Depression Screening PHQ-9 Little inte rest or pleasure in doing things: Not at all Feeling down, depressed, or hopeless: No t at all Trouble falling or staying asleep, or sl eeping too much: Not at all Feeling tired or having little energy: N ot at all Poor appetite or overeating: Not at all Feeling bad about yourself o r that you are a failure, or have let yourself or your family down: Not at all Trouble concentrating on thi ngs, such as reading the newspaper or watching television: Not at all Moving or speaking so slowly that other people could have noticed; or the opposite, being so fidgety or restless that you have been moving around a lot more than usual: Not at all Thoughts that you would be b sammy off or of hurting yourself in some way: Not at all Total Score: 0 Summary Pt. of Lacy Panchal last visit was 02/2023 Hx of HPV PAP in 2022, needs repeat PAP- Pt. sattessa she and her are wanting to try IVF. Dr. Webster on 01/13/24 cosntipation, acid reflux. went to ED last month Vitamin D deficiency Screening [place] Suicide Severity Rating Scale (LF) Do you want to initiate with: Screener form ?1. Wish to be : Have yo u wished you were or wished you could go to sleep and not wake up?: No ?2. Suicidal Thoughts: Have you actually had any thoughts of killing yourself?: No ?6. Suicide Behaviour: Have you ever done anything,started to do anything, or prepared to end your life?: No ?Interpretation:: Low Risk Do Not Use CSSRS Interpretation and Follow Up Plan CSSRS Interpretation and Follow Up Plan CSSRS Screen documented using SF: Yes Moderate or High risk requir es selection of a follow up plan: CSSRS No/Low: intervention not needed at this time Examination Category Sub-Category Detail Notes Category Not es General Examination GENERAL APPEARANCE: alert, o riented, well developed, well nourished, in no acute distress EYES: PERRLA, sclera and c onjunctiva clear EARS auditory canal clear , tympanic membrane intact, clear, light reflex present NOSE: nares patent, no les ions, septum intact THROAT: no erythema, no exud ate, pharynx normal NECK/THYROID: no cervical lymphade nopathy, no thyromegaly HEART: regular rate and rhy thm, no murmurs LUNGS: respirations regular and easy, clear to auscultation bilaterally ABDOMEN: bowel sounds present , soft, nontender, nondistended, no masses palpable, no organomegaly SKIN: warm and dry, no nieves hes ORAL CAVITY: mucosa moist
--- OUTSIDE RECORDS SUMMARY | 2024-05-21 10:02 | XMS_ITS | Clinical Summary ---
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 Encounters Date Type Department Care Team Description 05/06/2024 1:50 PM BUCK SWAMPER Procedure visit [facility] Reproductive Endocrinology [address] [place] [address] [place] [phone] Gianluca Quiroz MD 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) 05/06/2024 1:20 PM BUCK SWAMPER Ancillary Procedure [facility] Obstetrics and Gynecology [address] [place] [address] 3rd Floor [address] [place] [phone] Encounter for fertility testing 05/06/2024 1:00 PM BUCK SWAMPER Clinical Support [facility] Reproductive Endocrinology Lab [address] [place] [phone] Encounter for fertility testing (Primary Dx); Special screening examination for viral disease; Encounter for blood typing; Encounter for screening for infections with predominantly sexual mode of transmission; Encounter of female for testing for genetic disease carrier status for procreative management; Screening for thyroid disorder 05/06/2024 10:45 AM BUCK SWAMPER - 05/06/2024 11:59 PM BUCK SWAMPER Hospital Encounter [address] [address] Screening for thyroid disorder; Encounter for screening for infections with predominantly sexual mode of transmission; Encounter for blood typing; Special screening examination for viral disease; Encounter for fertility testing Discharge Disposition: Discharge to home or self care 05/04/2024 Telephone [facility] Reproductive Endocrinology [address] [place] [phone] Gianluca Quiroz MD DL- pt does not want to proceed with PGT discussion 04/28/2024 Telephone [facility] Reproductive Endocrinology [address] [place] [phone] Gianluca Quiroz MD DL- CD 1 04/28 for testing/ SONO/ TET/ LAbs 04/28/2024 Orders Only [facility] Reproductive Endocrinology [address] [place] [phone] Gianluca Quiroz MD Encounter for fertility testing (Primary Dx) from Last 3 Months Surgical History Surgery Date Site/Laterality Comments ECTOPIC 2011,2014. 2 ectopic pregnancies- 2011; 2015 SMALL INTESTINE SURGERY 03/2015/09/2011 Medical History Medical History Date Comments Urinary tract infection Heart disease Asthma Cancer (CMS/HCC) (HCC) Hypertension STI (sexually transmitted infection) chlamydia Ectopic 2011 salpingectomy Ectopic , tubal 2015 salping ectomy GERD (gastroesophageal reflux disease) 01/2022 Family History Medical History Relation Name Comments Diabetes Father [place] Preston Senior Heart disease Father [place] Preston Senior Cancer Maternal Grandmother Carlos Cruz Sen ior COPD Mother Aidee Preston Cancer Mother Aidee Preston Hypertension Mother Aidee Preston Other cancer Mother Aidee Preston Asthma Paternal Grandmother Maribel Cruz Relation Name Status Comments Father [place] Preston Senior Maternal Grandmother Carlos Cruz Senior Mother Aidee Preston Paternal Grandmother Maribel Cruz Social History Tobacco Use Types Packs/Day Years Used Date Smoking Tobacco: Former Cigarettes 0.1 10.9 0 2007 - 06/24/2022 Cigars Smokeless Tobacco: Never Tobacco Cessation:Ready to Q uit: Yes; Counseling Given: Not Answered Comments:Black & mild Alcohol Use Standard Drinks/Week Comments Yes 0 (1 standard drink = 0.6 oz pur e alcohol) AUDIT-C Answer Date Recorded Q1: How often do you have a drink containing alc ohol? 2-4 times a month 12/09/2023 Q2: How many drinks containi ng alcohol do you have on a typical day when you are drinking? 1 or 2 12/09/2023 Q3: How often do you have si x or more drinks on one occasion? Never 12/09/2023 Comments No Sex and Gender Information Value Date Recorded Sex Assigned at Not on file Legal Sex Female 8:10 PM BUCK SWAMPER Gender Identity Female 08/01/2020 9:48 AM CDT Sexual Orientation Straight 08/01/2020 9: 48 AM CDT Obstetrics History Para Term AB IAB SAB Ectopic Multiple Livin g Live Births 2 2 2 Date Outcome GA Total Labor Labor//3rd Weight Sex Type Anes PTL Sonia A1 A5 Name Clin 2012 Ectopic 2015 Ectopic Comments G1: salpingectomy G2: salpingectomy Last Filed Vital Signs Vital Sign Reading Time Taken Comments Blood Pressure 121/81 05/06/2024 1:15 PM BUCK SWAMPER Pulse 66 05/06/2024 1:15 PM BUCK SWAMPER Temperature 37 ??C (98.6 ??F) 01/08/2022 9:41 PM CDT Respiratory Rate 18 01/08/2022 9:41 PM CDT Oxygen Saturation 98% 01/08/2022 9:41 PM CDT Inhaled Oxygen Concentration - - Weight 61.1 kg (134 lb 12.8 oz) 05/06/2024 1:15 PM BUCK SWAMPER Height 157.5 cm (5' 2 ) 05/06/2024 1:15 PM BUCK SWAMPER Body Mass Index 24.66 05/06/2024 1:15 PM BUCK SWAMPER Plan of Treatment Health Maintenance Due Date Last Done Comments Cervical Cancer Screening 1987 Depression Screening 1987 DTaP/Tdap/Td Vaccine (1 - Tdap) 1998 Varicella Vaccines (1 of 2 - 13+ 2-dose series) 2000 Hepatitis B Screening 2005 Regular Well Visit/Exam 18-64 2005 Covid-19 Vaccine (2023-2 5 season) 2023 04/10/2021 Influenza Vaccine (#1) 2023 , 09/22/2014 HPV Vaccines Completed 07/21/2021, 07/24/2019, 05/14/2019 Hepatitis C Screening Completed 05/06/2024 Pneumococcal vaccine <65 Aged Out No longer eligible based on patient's age to complete this topic Procedures Procedure Name Priority Date/Time Associated Diagnosis Comments US SONOHYSTEROGRAPHY Schedule Routine, Read Routine (OP Routine) 05/06/2024 1:16 PM BUCK SWAMPER Encounter for fertility testing ANTIMULLERIAN HORMONE (AMH) Routine 05/06/2024 12:57 PM BUCK SWAMPER Encounter for fertility testing TYPE AND SCREEN Timed 05/06/2024 12:57 PM BUCK SWAMPER Encounter for blood typing TSH Routine 05/06/2024 12:57 PM BUCK SWAMPER Screening for thyroid disorder RUBELLA IGG Routine 05/06/2024 12:57 PM BUCK SWAMPER Special screening examination for viral disease VARICELLA ZOSTER ANTIBODY, IGG Routine 05/06/2024 12:57 PM BUCK SWAMPER Special screening examination for viral disease HEPATITIS C ANTIBODY Routine 05/06/2024 12:57 PM BUCK SWAMPER Encounter for screening for infections with predominantly sexual mode of transmission HEPATITIS B SURFACE ANTIGEN Routine 05/06/2024 12:57 PM BUCK SWAMPER Encounter for screening for infections with predominantly sexual mode of transmission HIV 1/2 ANTIBODY PLUS P24 ANTIGEN Routine 05/06/2024 12:57 PM BUCK SWAMPER Encounter for screening for infections with predominantly sexual mode of transmission RPR Routine 05/06/2024 12:57 PM BUCK SWAMPER Encounter for screening for infections with predominantly sexual mode of transmission POCT HCG, URINE, BY VISUAL COLOR Routine 05/06/2024 from Last 3 Months Results * US Sonohysterography (05/06/2024 1:16 PM BUCK SWAMPER) Cul de Sac No free fluid visualized VIEWPOINT Left Antral Follicle Count Antral Follicle Count < 10 mm = ?5 VIEWPOINT Right Antral Follicle Count Antral Follicle Count < 10 mm = 8 VIEWPOINT Endometrial Thickness 8.2 mm&millim eters VIEWPOINT Anatomical Region Laterality Modality Pelvis N/A Ultrasound 05/06/2024 1:31 PM BUCK SWAMPER Impressions 05/06/2024 2:18 PM BUCK SWAMPER AFC ~13; 2 endom polyps (1 cm and 4 mm) on SHG; normal TET Narrative Procedure Note Gianluca Quiroz MD - 05/06/2024 IMPRESSION: AFC ~13; 2 endom polyps (1 cm and 4 mm) on SHG; normal TET us Gianluca Quiroz MD IMG US PROCEDURES Final Re sult * HIV 1/2 Antibody plus p24 Antigen Blood (05/06/2024 12:57 PM BUCK SWAMPER) HIV 1/2 ab + p24 ag Nonreactive Nonreactive Comment:Nonreactive for HIV- 1 antigen and HIV-1/HIV-2 antibodies. No laboratory evidence of HIV infection. If acute HIV infection is suspected, consider testing for HIV-1 RNA. Current interpretive data was last revised on 21. Blood 05/06/2024 12:5 7 PM BUCK SWAMPER 05/06/2024 2:13 PM BUCK SWAMPER us Gianluca Quiroz MD LAB MICROBIOLOGY - GENERAL ORDERABLES Final Result JAN [facility] Department [place] [address] * Hepatitis C antibody Blood (05/06/2024 12:57 PM BUCK SWAMPER) Hep C Ab Nonreactive Nonreactive Comment:Antibodies to HCV no t detected. Does NOT exclude the possibility of recent exposure to HCV. Current interpretive data was last revised on 21 Blood 05/06/2024 12:5 7 PM BUCK SWAMPER 05/06/2024 2:13 PM BUCK SWAMPER Gianluca Quiroz MD LAB MICROBIOLOGY - GENERAL ORDERABLES Final Result Performing Organization Address [facility] Co de Phone Number JAN [facility] Department [place] [address] * Antimullerian hormone (AMH) (05/06/2024 12:57 PM BUCK SWAMPER) AMH, ab 1.28 0.15 - 7.49 ng/mL Comment: Interpretive Data Females: ?20 - 24 Years ?1.22 - 11.7 ng/mL ??25 - 29 Years ?0.89 - 9.85 ng/mL ??30 - 34 Years ?0.58 - 8.13 ng/mL ??35 - 39 Years ?0.15 - 7.49 ng/mL ??40 - 44 Years ?0.03 - 5.47 ng/mL Current interpretive data was last revised on 2017. Testing performed by: [facility], [address] [place] [phone] Blood 05/06/2024 12:5 7 PM BUCK SWAMPER 05/06/2024 2:13 PM BUCK SWAMPER Gianluca Quiroz MD LAB BLOOD ORDERABLES Final Result Performing Organization Address [facility] Co de Phone Number JAN [facility] [place] [address] * Rubella IgG antibody Blood (05/06/2024 12:57 PM BUCK SWAMPER) Rubella IgG Reactive Comment:Reactive: Results jasso ggest response to immunization or prior exposure to the virus. Blood 05/06/2024 12:5 7 PM BUCK SWAMPER 05/06/2024 2:13 PM BUCK SWAMPER Gianluca Quiroz MD LAB MICROBIOLOGY - GENERAL ORDERABLES Final Result Performing Organization Address [facility] Co de Phone Number [facility] [place] [address] * RPR Blood (05/06/2024 12:57 PM BUCK SWAMPER) RPR Nonreactive Nonreactive Blood 05/06/2024 12:5 7 PM BUCK SWAMPER 05/06/2024 2:13 PM BUCK SWAMPER Gianluca Quiroz MD LAB MICROBIOLOGY - GENERAL ORDERABLES Final Result Performing Organization Address [facility] de Phone Number [facility] Department [place] [address] * Hepatitis B Surface Antigen Blood (05/06/2024 12:57 PM BUCK SWAMPER) HepBsAg Nonreactive Nonreactive Blood 05/06/2024 12:5 7 PM BUCK SWAMPER 05/06/2024 2:13 PM BUCK SWAMPER Gianluca Quiroz MD LAB MICROBIOLOGY - GENERAL ORDERABLES Final Result Performing Organization Address [facility] Co de Phone Number [facility] [place] [address] * Type and screen (05/06/2024 12:57 PM BUCK SWAMPER) Kandice, indirect Negative ABO Rh B Positive [facility] Blood 05/06/2024 12:5 7 PM BUCK SWAMPER 05/06/2024 2:23 PM BUCK SWAMPER Narrative [facility] - 05/06/2024 3:14 PM BUCK SWAMPER Has the patient had Daratumumab or Isatuximab in the past 6 months?->Unknown Gianluca Quiroz MD LAB BLOOD BANK TEST ORDERA BLES Final Result Performing Organization Address [facility] Co de Phone Number [facility] Department [place] [address] * Varicella Zoster IgG antibody Blood (05/06/2024 12:57 PM BUCK SWAMPER) Pathologist [facility] VZV IgG Reactive Reactive Comment:Reactive: Results jasso ggest response to immunization or prior exposure to the virus. Blood 05/06/2024 12:5 7 PM BUCK SWAMPER 05/06/2024 2:13 PM BUCK SWAMPER Gianluca Quiroz MD LAB MICROBIOLOGY - GENERAL ORDERABLES Final Result Performing Organization Address [facility] Co de Phone Number [facility] Department [place] [address] * TSH (05/06/2024 12:57 PM BUCK SWAMPER) [facility] Thyroid Stimulating Hormone 1.51 0.30 - 4.20 mcIUnit/mL Comment:Testing performed by : [facility], [address] [place] [address], [facility] [address] [phone] Blood 05/06/2024 12:5 7 PM BUCK SWAMPER 05/06/2024 2:13 PM BUCK SWAMPER Gianluca Quiroz MD LAB BLOOD ORDERABLES Final Result Performing Organization Address [facility] Co de Phone Number [facility] Department [place] [address] * POCT hCG, urine, by visual color (05/06/2024) Pathologist [facility] test, ur, POC Negative 05/06/2024 Gianluca Quiroz MD POINT OF CARE TEST ORDERAB LES Final Result from Last 3 Months Insurance [facility] [place] [address] [place] [address] [facility] [place] [address] [place] [address] Care Teams Laminator Hand Relationship Specialty Start Date End Date Lucinda Rodgers DO PCP - General Family Medicine 05/16/20
--- OUTSIDE RECORDS SUMMARY | 2024-05-21 10:02 | XMS_ITS ---
Author Organization [facility] Address [address] [place] [address] Care Team Providers Care Distribution District Supervisor Name Role Phone Lacy Alicia Primary Care Provider Teresa Benson [phone] REASON FOR VISIT Labs Medications Medication SIG (Take, Route, Frequency, Duration) Notes Start Date End Date Status Vitamin D (Ergocalciferol) 1.25 MG (59038 UT) TAKE 1 CAPSULE BY MOUTH 1 TIME WEEKLY FOR 8 WEEKS Orally Once weekly for 30 days Active Social History Sex Assigned At : Social History Observation Description Sex Assigned At Female Problems Problem Type SNOMED Code ICD Code Onset Dates Problem Status W/U Status Risk Notes Problem Vitamin D deficiency (36412040) Vitamin D deficiency (E55.9) Active confirmed Encounters Encounter Location Date Provider Diagnosis [address] [phone] 12/30/2023 Teresa Benson Vitamin D deficiency E55.9 Assessments Encounter Date Diagnosis (ICD Code) Assessment Notes Treatment Notes Treatment Clinical Notes Section Notes 12/30/2023 Vitamin D deficiency (ICD-10 - E55.9) Plan Of Treatment Medication Medication Name Sig Start Date Stop Date Notes Vitamin D (Ergocalciferol) 1 .25 MG (10771 UT) TAKE 1 CAPSULE BY MOUTH 1 TIME WEEKLY FOR 8 WEEKS Orally Once weekly for 30 days Progress Notes * Ila PRESTON:1985 ([age] yo F)Acc No.[id number]:12/30/2023 Patient:Geean ABAD :1985???Age:38 Y???Sex:Female Address:[address] [place] [address] * Refills? Refill Vitamin D (Ergocalciferol) Capsule, 1.25 MG (98912 UT), Orally, 4, TAKE 1 CAPSULE BY MOUTH 1 TIME WEEKLY FOR 8 WEEKS, Once weekly, 30 days, Refills=1 Subjective: * Chief Complaints: * ???Labs * Medical History:? * Surgical History:? * Hospitalization/Major Diagno stic Procedure:? * Medications:? Objective: * Vitals:? * Physical Examination:? Assessment: * Assessment: 1.?Vitamin D deficiency - E5 5.9 (Primary)??? Plan: * Treatment: * Procedure Codes:? * true * Date:? Generated for Jose eden/Buzz/eTransmitting on:?05/21/2024 10:02 AM FOREST FIRE MANAGEMENT OFFICER
--- OUTSIDE RECORDS SUMMARY | 2024-05-21 10:02 | XMS_ITS | Referral Summary ---
Author Organization [facility] [address] [place] [phone] Care Team Providers Care Education Officer Name Role Phone Lucinda Rodgers DO Primary Care Provider Encounters Date Type Department Care Team Description 05/06/2024 1:00 PM LEASE OPERATOR Clinical Support [facility] [address] [place] [phone] Encounter for fertility testing (Primary Dx); Special screening examination for viral disease; Encounter for blood typing; Encounter for screening for infections with predominantly sexual mode of transmission; Encounter of female for testing for genetic disease carrier status for procreative management; Screening for thyroid disorder 05/06/2024 1:50 PM LEASE OPERATOR Procedure visit [facility] [address] [facility] [address] [place] [phone] Gianluca Quiroz MD 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) 05/06/2024 1:20 PM LEASE OPERATOR Ancillary Procedure [facility] [address] [place] [address] [address]rd Floor [address] [place] [phone] Encounter for fertility testing 05/06/2024 10:45 AM LEASE OPERATOR - 05/06/2024 11:59 PM LEASE OPERATOR Hospital Encounter [facility] [address] [place] [address] [place] [address] Screening for thyroid disorder; Encounter for screening for infections with predominantly sexual mode of transmission; Encounter for blood typing; Special screening examination for viral disease; Encounter for fertility testing Discharge Disposition: Discharge to home or self care 05/04/2024 Telephone [facility] [address] [phone] Gianluca Quiroz MD DL- pt does not want to proceed with PGT discussion 04/28/2024 Telephone [facility] [address] [phone] Gianluca Quiroz MD DL- CD 1 04/28 for testing/ SONO/ TET/ LAbs 04/28/2024 Orders Only [facility] [address] [phone] Gianluca Quiroz MD Encounter for fertility testing (Primary Dx) from Last 3 Months Allergies No known active allergies Medications docosahexaenoic acid (DHA) 200 mg capsule DHA 200 mg capsule TAKE 1 CAPSULE BY MOUTH EVERY DAY Active famotidine (PEPCID) 20 mg tablet Take 1 tablet (20 mg total) by mouth 2 (two) times a day 12/05/2023 Active Active Problems Problem Noted Date Diagnosed Date 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 Social History Tobacco Use Types Packs/Day Years [...] on file Legal Sex Female 8:10 PM LEASE OPERATOR Gender Identity Female 08/01/2020 9:48 AM CDT Sexual Orientation Straight 08/01/2020 9: 48 AM CDT Last Filed Vital Signs Vital Sign Reading Time Taken Comments Blood Pressure 121/81 05/06/2024 1:15 PM LEASE OPERATOR Pulse 66 05/06/2024 1:15 PM LEASE OPERATOR Temperature 37 ??C (98.6 ??F) 01/08/2022 9:41 PM CDT Respiratory Rate 18 01/08/2022 9:41 PM CDT Oxygen Saturation 98% 01/08/2022 9:41 PM CDT Inhaled Oxygen Concentration - - Weight 61.1 kg (134 lb 12.8 oz) 05/06/2024 1:15 PM LEASE OPERATOR Height 157.5 cm (5' 2 ) 05/06/2024 1:15 PM LEASE OPERATOR Body Mass Index 24.66 05/06/2024 1:15 PM LEASE OPERATOR Plan of Treatment Not on file Procedures Procedure Name Priority Date/Time Associated Diagnosis Comments US SONOHYSTEROGRAPHY Schedule Routine, Read Routine (OP Routine) 05/06/2024 1:16 PM LEASE OPERATOR Encounter for fertility testing ANTIMULLERIAN HORMONE (AMH) Routine 05/06/2024 12:57 PM LEASE OPERATOR Encounter for fertility testing TYPE AND SCREEN Timed 05/06/2024 12:57 PM LEASE OPERATOR Encounter for blood typing TSH Routine 05/06/2024 12:57 PM LEASE OPERATOR Screening for thyroid disorder RUBELLA IGG Routine 05/06/2024 12:57 PM LEASE OPERATOR Special screening examination for viral disease VARICELLA ZOSTER ANTIBODY, IGG Routine 05/06/2024 12:57 PM LEASE OPERATOR Special screening examination for viral disease HEPATITIS C ANTIBODY Routine 05/06/2024 12:57 PM LEASE OPERATOR Encounter for screening for infections with predominantly sexual mode of transmission HEPATITIS B SURFACE ANTIGEN Routine 05/06/2024 12:57 PM LEASE OPERATOR Encounter for screening for infections with predominantly sexual mode of transmission HIV 1/2 ANTIBODY PLUS P24 ANTIGEN Routine 05/06/2024 12:57 PM LEASE OPERATOR Encounter for screening for infections with predominantly sexual mode of transmission RPR Routine 05/06/2024 12:57 PM LEASE OPERATOR Encounter for screening for infections with predominantly sexual mode of transmission POCT HCG, URINE, BY VISUAL COLOR Routine 05/06/2024 from Last 3 Months Results * US Sonohysterography (05/06/2024 1:16 PM LEASE OPERATOR) Cul de Sac No free fluid visualized VIEWPOINT Left Antral Follicle Count Antral Follicle Count < 10 mm = ?5 VIEWPOINT Right Antral Follicle Count Antral Follicle Count < 10 mm = 8 VIEWPOINT Endometrial Thickness 8.2 mm&millim eters VIEWPOINT Anatomical Region Laterality Modality Pelvis N/A Ultrasound 05/06/2024 1:31 PM LEASE OPERATOR Impressions 05/06/2024 2:18 PM LEASE OPERATOR AFC ~13; 2 endom polyps (1 cm and 4 mm) on SHG; normal TET Narrative Procedure Note Gianluca Quiroz MD - 05/06/2024 IMPRESSION: AFC ~13; 2 endom polyps (1 cm and 4 mm) on SHG; normal TET Gianluca Quiroz MD IMG US PROCEDURES Final Re sult * HIV 1/2 Antibody plus p24 Antigen Blood (05/06/2024 12:57 PM LEASE OPERATOR) HIV 1/2 ab + p24 ag Nonreactive Nonreactive Comment:Nonreactive for HIV- 1 antigen and HIV-1/HIV-2 antibodies. No laboratory evidence of HIV infection. If acute HIV infection is suspected, consider testing for HIV-1 RNA. Current interpretive data was last revised on 21. Blood 05/06/2024 12:5 7 PM LEASE OPERATOR 05/06/2024 2:13 PM LEASE OPERATOR Gianluca Quiroz MD LAB MICROBIOLOGY - GENERAL ORDERABLES Final Result [facility] [place] [address] * Hepatitis C antibody Blood (05/06/2024 12:57 PM LEASE OPERATOR) Hep C Ab Nonreactive Nonreactive Comment:Antibodies to HCV no t detected. Does NOT exclude the possibility of recent exposure to HCV. Current interpretive data was last revised on 21 Blood 05/06/2024 12:5 7 PM LEASE OPERATOR 05/06/2024 2:13 PM LEASE OPERATOR Gianluca Quiroz MD LAB MICROBIOLOGY - GENERAL ORDERABLES Final Result Performing Organization Address City/[facility]/[place] [address] * Antimullerian hormone (AMH) (05/06/2024 12:57 PM LEASE OPERATOR) AMH, ab 1.28 0.15 - 7.49 ng/mL Comment: Interpretive Data Females: ?20 - 24 Years ?1.22 - 11.7 ng/mL ??25 - 29 Years ?0.89 - 9.85 ng/mL ??30 - 34 Years ?0.58 - 8.13 ng/mL ??35 - 39 Years ?0.15 - 7.49 ng/mL ??40 - 44 Years ?0.03 - 5.47 ng/mL Current interpretive data was last revised on 2017. Testing performed by: [facility], [address] [place] [address] [address] [id number] Blood 05/06/2024 12:5 7 PM LEASE OPERATOR 05/06/2024 2:13 PM LEASE OPERATOR Gianluca Quiroz MD LAB BLOOD ORDERABLES Final Result JAN [facility] [place] [address] * Rubella IgG antibody Blood (05/06/2024 12:57 PM LEASE OPERATOR) Pathologist [facility] Rubella IgG Reactive Comment:Reactive: Results jasso ggest response to immunization or prior exposure to the virus. Blood 05/06/2024 12:5 7 PM LEASE OPERATOR 05/06/2024 2:13 PM LEASE OPERATOR Gianluca Quiroz MD LAB MICROBIOLOGY - GENERAL ORDERABLES Final Result Performing Organization Address City/[facility] Co de Phone Number [facility] [place] [address] * RPR Blood (05/06/2024 12:57 PM LEASE OPERATOR) Pathologist [facility] RPR Nonreactive Nonreactive Blood 05/06/2024 12:5 7 PM LEASE OPERATOR 05/06/2024 2:13 PM LEASE OPERATOR Gianluca Quiroz MD LAB MICROBIOLOGY - GENERAL ORDERABLES Final Result Performing Organization Address [facility] Co de Phone Number [facility] [place] [address] * Hepatitis B Surface Antigen Blood (05/06/2024 12:57 PM LEASE OPERATOR) Pathologist [facility] HepBsAg Nonreactive Nonreactive Blood 05/06/2024 12:5 7 PM LEASE OPERATOR 05/06/2024 2:13 PM LEASE OPERATOR Gianluca Quiroz MD LAB MICROBIOLOGY - GENERAL ORDERABLES Final Result Performing Organization Address City/[facility] [place] [address] * Type and screen (05/06/2024 12:57 PM LEASE OPERATOR) Pathologist [facility] Kandice, indirect Negative ABO Rh B Positive [facility] Blood 05/06/2024 12:5 7 PM LEASE OPERATOR 05/06/2024 2:23 PM LEASE OPERATOR Narrative [facility] - 05/06/2024 3:14 PM LEASE OPERATOR Has the patient had Daratumumab or Isatuximab in the past 6 months?->Unknown Gianluca Quiroz MD LAB BLOOD BANK TEST ORDERA BLES Final Result Performing Organization Address City/[facility]/ZIP Co de Phone Number [facility] [place] [address] * Varicella Zoster IgG antibody Blood (05/06/2024 12:57 PM LEASE OPERATOR) VZV IgG Reactive Reactive Comment:Reactive: Results jasso ggest response to immunization or prior exposure to the virus. Blood 05/06/2024 12:5 7 PM LEASE OPERATOR 05/06/2024 2:13 PM LEASE OPERATOR Gianluca Quiroz MD LAB MICROBIOLOGY - GENERAL ORDERABLES Final Result Performing Organization Address [facility] de Phone Number [facility] [place] [address] * TSH (05/06/2024 12:57 PM LEASE OPERATOR) Thyroid Stimulating Hormone 1.51 0.30 - 4.20 mcIUnit/mL Comment:Testing performed by : [facility], [address] [place] [address], [place]. [address] [id number] Blood 05/06/2024 12:5 7 PM LEASE OPERATOR 05/06/2024 2:13 PM LEASE OPERATOR Gianluca Quiroz MD LAB BLOOD ORDERABLES Final Result Performing Organization Address [facility] Co de Phone Number [facility] [place] [address] * POCT hCG, urine, by visual color (05/06/2024) test, ur, POC Negative 05/06/2024 Gianluca Quiroz MD POINT OF CARE TEST ORDERAB LES Final Result from Last [address] [facility] [place] [address] [facility] Care Teams Education Officer Relationship Specialty Start Date End Date Lucinda Rodgers DO PCP - General Family Medicine 05/16/20
[2024-05-21 10:09] LABS: Hematocrit 35.8 % (37.0-47.0); Hemoglobin 11.8 g/dL (12.0-15.0)
== END 2024-05-21 09:30 | disposition home or self-care (01) ==
LOC: ANHSURGERY 09:34
PROVIDERS: PCP Family Medicine; Visit Provider Student in an Organized Health Care Education/Training Program
DX: N87.1 Moderate cervical dysplasia (principal)
CPT/HCPCS: 36415; 85014; 85018

== ENCOUNTER 2024-05-22 03:03 | Day surgery (SDC) | payer OTHER, SELFPAY ==
[2024-05-15 15:00] VITALS: BMI 24.9
--- NOTE | 2024-05-15 15:01 | PC.NURSE ---
Report to the Outpatient Waiting Room, entrance under the green pavilion located off [facility], at time _1130_ on date _[id number]_. Planned Procedure Time: _130pm_.? Time changes happen often and if your time is changed the preop area will call you the afternoon before. - You and your visitor will be asked to self-screen and do not enter if you have any COVID symptoms. Please call surgeon if you need to reschedule. - A mask is optional within the hospital at this time. Patients may have clear liquids (water, carbonated beverages, clear teas, apple juice) until 3 hours prior to surgery with a maximum of 20 ounces. - No food from midnight until time of surgery and no smoking. This includes no chewing gum, candy or mints. Take only the following medications with a SIP of water on the morning of surgery: __None DO NOT STOP ANY OF YOUR OTHER PRESCRIPTION MEDICATIONS PRIOR TO SURGERY EXCEPT THE FOLLOWING Medications to discontinue per physician __Vitamins Date to take last skqx___[id number]____ Please no make-up, nail slovenian, hairspray, perfume, deodorant, or body powder the day of surgery.? No jewelry (including any body piercings) or valuables the day of surgery, leave them at home.? Please take a shower or bath the night before, or the morning of, surgery with an antibacterial soap.? Wear comfortable, loose fitting clothing.? - Jewelry must be removed prior to entering the operating room.? Rings and piercings that are not removed may be cut off. - The hospital will not accept responsibility for valuables.? - Please leave all valuables, including medications, at home the day of surgery. If you are going home after surgery, a licensed bus driver/monitor must drive you home.? - NO public transportation without another adult if you receive anesthesia. - We recommend that an adult stay with you for 24 hours following discharge. - We also recommend that you do not drive, make important decision, drink alcoholic beverages, or take any drugs that were not prescribed by your health care provider for at least 24 hours after your discharge time. Follow any additional instructions given to you from your surgeon. Telephone instructions given to __Landy___and asked if any additional questions and then verbalized understanding. Patient advised to call surgeon office or pre surgery nurse liaison [phone] if any additional questions.
--- OUTSIDE RECORDS SUMMARY | 2024-05-22 03:06 | XMS_ITS | Referral Summary ---
Author Organization [facility] [address] [place] [phone] Care Team Providers Care Histology Manager Name Role Phone Lucinda Rodgers DO Primary Care Provider Encounters Date Type Department Care Team Description 05/06/2024 1:00 PM PUPPY WALKER Clinical Support [facility] [address] [place] [phone] Encounter for fertility testing (Primary Dx); Special screening examination for viral disease; Encounter for blood typing; Encounter for screening for infections with predominantly sexual mode of transmission; Encounter of female for testing for genetic disease carrier status for procreative management; Screening for thyroid disorder 05/06/2024 1:50 PM PUPPY WALKER Procedure visit [facility] [address] [facility] [address] [place] [phone] Gianluca Quiroz MD 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ne[facility] [address] [place] [address] [address] [place] [phone] Encounter for fertility testing 05/06/2024 10:45 AM PUPPY WALKER - 05/06/2024 11:59 PM PUPPY WALKER Hospital Encounter [facility] [address] [place] [address] [place] [address] Screening for thyroid disorder; Encounter for screening for infections with predominantly sexual mode of transmission; Encounter for blood typing; Special screening examination for viral disease; Encounter for fertility testing Discharge Disposition: Discharge to home or self care 05/04/2024 Telephone [facility] [address] [phone] Gianluca Quiroz MD DL- pt does not want to proceed with PGT discussion 04/28/2024 Telephone [facility] [address] [phone] Gianluca Quiroz MD DL- CD 1 04/28 for testing/ SONO/ TET/ LAbs 04/28/2024 Orders Only [facility] [address] [phone] Gianluca Quiroz MD Encounter for [...] on file Legal Sex Female 8:10 PM PUPPY WALKER Gender Identity Female 08/01/2020 9:48 AM CDT Sexual Orientation Straight 08/01/2020 9: 48 AM CDT Last Filed Vital Signs Vital Sign Reading Time Taken Comments Blood Pressure 121/81 05/06/2024 1:15 PM PUPPY WALKER Pulse 66 05/06/2024 1:15 PM PUPPY WALKER Temperature 37 ??C (98.6 ??F) 01/08/2022 9:41 PM CDT Respiratory Rate 18 01/08/2022 9:41 PM CDT Oxygen Saturation 98% 01/08/2022 9:41 PM CDT Inhaled Oxygen Concentration - - Weight 61.1 kg (134 lb 12.8 oz) 05/06/2024 1:15 PM PUPPY WALKER Height 157.5 cm (5' 2 ) 05/06/2024 1:15 PM PUPPY WALKER Body Mass Index 24.66 05/06/2024 1:15 PM PUPPY WALKER Plan of Treatment Not on file Procedures Procedure Name Priority Date/Time Associated Diagnosis Comments US SONOHYSTEROGRAPHY Schedule Routine, Read Routine (OP Routine) 05/06/2024 1:16 PM PUPPY WALKER Encounter for fertility testing ANTIMULLERIAN HORMONE (AMH) Routine 05/06/2024 12:57 PM PUPPY WALKER Encounter for fertility testing TYPE AND SCREEN Timed 05/06/2024 12:57 PM PUPPY WALKER Encounter for blood typing TSH Routine 05/06/2024 12:57 PM PUPPY WALKER Screening for thyroid disorder RUBELLA IGG Routine 05/06/2024 12:57 PM PUPPY WALKER Special screening examination for viral disease VARICELLA ZOSTER ANTIBODY, IGG Routine 05/06/2024 12:57 PM PUPPY WALKER Special screening examination for viral disease HEPATITIS C ANTIBODY Routine 05/06/2024 12:57 PM PUPPY WALKER Encounter for screening for infections with predominantly sexual mode of transmission HEPATITIS B SURFACE ANTIGEN Routine 05/06/2024 12:57 PM PUPPY WALKER Encounter for screening for infections with predominantly sexual mode of transmission HIV 1/2 ANTIBODY PLUS P24 ANTIGEN Routine 05/06/2024 12:57 PM PUPPY WALKER Encounter for screening for infections with predominantly sexual mode of transmission RPR Routine 05/06/2024 12:57 PM PUPPY WALKER Encounter for screening for infections with predominantly sexual mode of transmission POCT HCG, URINE, BY VISUAL COLOR Routine 05/06/2024 from Last 3 Months Results * US Sonohysterography (05/06/2024 1:16 PM PUPPY WALKER) Cul de Sac No free fluid visualized VIEWPOINT Left Antral Follicle Count Antral Follicle Count < 10 mm = ?5 VIEWPOINT Right Antral Follicle Count Antral Follicle Count < 10 mm = 8 VIEWPOINT Endometrial Thickness 8.2 mm&millim eters VIEWPOINT Anatomical Region Laterality Modality Pelvis N/A Ultrasound 05/06/2024 1:31 PM PUPPY WALKER Impressions 05/06/2024 2:18 PM PUPPY WALKER AFC ~13; 2 endom polyps (1 cm and 4 mm) on SHG; normal TET Narrative Procedure Note Gianluca Quiroz MD - 05/06/2024 IMPRESSION: AFC ~13; 2 endom polyps (1 cm and 4 mm) on SHG; normal TET Gianulca Quiroz MD IMG US PROCEDURES Final Re sult * HIV 1/2 Antibody plus p24 Antigen Blood (05/06/2024 12:57 PM PUPPY WALKER) HIV 1/2 ab + p24 ag Nonreactive Nonreactive Comment:Nonreactive for HIV- 1 antigen and HIV-1/HIV-2 antibodies. No laboratory evidence of HIV infection. If acute HIV infection is suspected, consider testing for HIV-1 RNA. Current interpretive data was last revised on 21. Blood 05/06/2024 12:5 7 PM PUPPY WALKER 05/06/2024 2:13 PM PUPPY WALKER Gianluca Quiroz MD LAB MICROBIOLOGY - GENERAL ORDERABLES Final Result [facility] [place] [address] * Hepatitis C antibody Blood (05/06/2024 12:57 PM PUPPY WALKER) Hep C Ab Nonreactive Nonreactive Comment:Antibodies to HCV no t detected. Does NOT exclude the possibility of recent exposure to HCV. Current interpretive data was last revised on 21 Blood 05/06/2024 12:5 7 PM PUPPY WALKER 05/06/2024 2:13 PM PUPPY WALKER Gianluca Quiroz MD LAB MICROBIOLOGY - GENERAL ORDERABLES Final Result Performing Organization Address City/[facility]/ZIP [place] [address] * Antimullerian hormone (AMH) (05/06/2024 12:57 PM PUPPY WALKER) AMH, ab 1.28 0.15 - 7.49 ng/mL Comment: Interpretive Data Females: ?20 - 24 Years ?1.22 - 11.7 ng/mL ??25 - 29 Years ?0.89 - 9.85 ng/mL ??30 - 34 Years ?0.58 - 8.13 ng/mL ??35 - 39 Years ?0.15 - 7.49 ng/mL ??40 - 44 Years ?0.03 - 5.47 ng/mL Current interpretive data was last revised on 2017. Testing performed by: [facility], [address] [place] [address] [address] [id number] Blood 05/06/2024 12:5 7 PM PUPPY WALKER 05/06/2024 2:13 PM PUPPY WALKER Gianluca Quiroz MD LAB BLOOD ORDERABLES Final Result JAN [facility] [place] [address] * Rubella IgG antibody Blood (05/06/2024 12:57 PM PUPPY WALKER) Pathologist [facility] Rubella IgG Reactive Comment:Reactive: Results jasso ggest response to immunization or prior exposure to the virus. Blood 05/06/2024 12:5 7 PM PUPPY WALKER 05/06/2024 2:13 PM PUPPY WALKER Gianluca Quiroz MD LAB MICROBIOLOGY - GENERAL ORDERABLES Final Result Performing Organization Address City/[facility] Co de Phone Number [facility] [place] [address] * RPR Blood (05/06/2024 12:57 PM PUPPY WALKER) Pathologist [facility] RPR Nonreactive Nonreactive Blood 05/06/2024 12:5 7 PM PUPPY WALKER 05/06/2024 2:13 PM PUPPY WALKER Gianluca Quiroz MD LAB MICROBIOLOGY - GENERAL ORDERABLES Final Result Performing Organization Address [facility] Co de Phone Number [facility] [place] [address] * Hepatitis B Surface Antigen Blood (05/06/2024 12:57 PM PUPPY WALKER) Pathologist [facility] HepBsAg Nonreactive Nonreactive Blood 05/06/2024 12:5 7 PM PUPPY WALKER 05/06/2024 2:13 PM PUPPY WALKER Gianluca Quiroz MD LAB MICROBIOLOGY - GENERAL ORDERABLES Final Result Performing Organization Address City/[facility] [place] [address] * Type and screen (05/06/2024 12:57 PM PUPPY WALKER) Pathologist [facility] Kandice, indirect Negative ABO Rh B Positive [facility] Blood 05/06/2024 12:5 7 PM PUPPY WALKER 05/06/2024 2:23 PM PUPPY WALKER Narrative [facility] - 05/06/2024 3:14 PM PUPPY WALKER Has the patient had Daratumumab or Isatuximab in the past 6 months?->Unknown Gianluca Quiroz MD LAB BLOOD BANK TEST ORDERA BLES Final Result Performing Organization Address City/[facility]/ZIP Co de Phone Number [facility] [place] [address] * Varicella Zoster IgG antibody Blood (05/06/2024 12:57 PM PUPPY WALKER) VZV IgG Reactive Reactive Comment:Reactive: Results jasso ggest response to immunization or prior exposure to the virus. Blood 05/06/2024 12:5 7 PM PUPPY WALKER 05/06/2024 2:13 PM PUPPY WALKER Gianluca Quiroz MD LAB MICROBIOLOGY - GENERAL ORDERABLES Final Result Performing Organization Address [facility] de Phone Number [facility] [place] [address] * TSH (05/06/2024 12:57 PM PUPPY WALKER) Thyroid Stimulating Hormone 1.51 0.30 - 4.20 mcIUnit/mL Comment:Testing performed by : [facility], [address] [place] [address], [place]. [address] [id number] Blood 05/06/2024 12:5 7 PM PUPPY WALKER 05/06/2024 2:13 PM PUPPY WALKER Gianluca Quiroz MD LAB BLOOD ORDERABLES Final Result Performing Organization Address [facility] Co de Phone Number [facility] [place] [address] * POCT hCG, urine, by visual color (05/06/2024) test, ur, POC Negative 05/06/2024 Gianluca Quiroz MD POINT OF CARE TEST ORDERAB LES Final Result from Last 3 Months Insurance [facility] [place] [address] [place] [address] [facility] Care Teams Histology Manager Relationship Specialty Start Date End Date Lucinda Rodgers DO PCP - General Family Medicine 05/16/20
--- OUTSIDE RECORDS SUMMARY | 2024-05-22 03:06 | XMS_ITS | Clinical Summary ---
Author Organization [facility] Address [address] [place] [id number] Care Team Providers Care Lipstick Molder Name Role Phone Lucinda Rodgers DO Primary [...] Department Care Team Description 05/06/2024 1:50 PM LEGAL SECRETARY RECEPTIONIST Procedure visit 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 Reproductive Endocrinology Lab [address] [place] [phone] Encounter for fertility testing (Primary Dx); Special screening examination for viral disease; Encounter for blood typing; Encounter for screening for infections with predominantly sexual mode of transmission; Encounter of female for testing for genetic disease carrier status for procreative management; Screening for thyroid disorder 05/06/2024 10:45 AM LEGAL SECRETARY RECEPTIONIST - 05/06/2024 11:59 PM LEGAL SECRETARY RECEPTIONIST Hospital Encounter [address] [address] Screening for thyroid disorder; Encounter for screening for infections with predominantly sexual mode of transmission; Encounter for blood typing; Special screening examination for viral disease; Encounter for fertility testing Discharge Disposition: Discharge to home or self care 05/04/2024 Telephone [facility] Reproductive Endocrinology [address] [place] [phone] Gianluca Quiroz MD DL- pt does not want to proceed with PGT discussion 04/28/2024 Telephone [facility] Reproductive Endocrinology [address] [place] [phone] Gianluca Quiroz MD DL- CD 1 04/28 for testing/ SONO/ TET/ LAbs 04/28/2024 Orders Only [facility] Reproductive Endocrinology [address] [place] [phone] Gianluca Quiroz MD Encounter for fertility [...] on file Legal Sex Female 8:10 PM LEGAL SECRETARY RECEPTIONIST Gender Identity Female 08/01/2020 9:48 AM CDT [...] Comments Blood Pressure 121/81 05/06/2024 1:15 PM LEGAL SECRETARY RECEPTIONIST Pulse 66 05/06/2024 1:15 PM LEGAL SECRETARY RECEPTIONIST Temperature 37 ??C (98.6 ??F) 01/08/2022 9:41 PM CDT Respiratory Rate 18 01/08/2022 9:41 PM CDT Oxygen Saturation 98% 01/08/2022 9:41 PM CDT Inhaled Oxygen Concentration - - Weight 61.1 kg (134 lb 12.8 oz) 05/06/2024 1:15 PM LEGAL SECRETARY RECEPTIONIST Height 157.5 cm (5' 2 ) 05/06/2024 1:15 PM LEGAL SECRETARY RECEPTIONIST Body Mass Index 24.66 05/06/2024 1:15 PM LEGAL SECRETARY RECEPTIONIST Plan of Treatment Health Maintenance Due Date [...] Read Routine (OP Routine) 05/06/2024 1:16 PM LEGAL SECRETARY RECEPTIONIST Encounter for fertility testing ANTIMULLERIAN HORMONE (AMH) Routine 05/06/2024 12:57 PM LEGAL SECRETARY RECEPTIONIST Encounter for fertility testing TYPE AND SCREEN Timed 05/06/2024 12:57 PM LEGAL SECRETARY RECEPTIONIST Encounter for blood typing TSH Routine 05/06/2024 12:57 PM LEGAL SECRETARY RECEPTIONIST Screening for thyroid disorder RUBELLA IGG Routine 05/06/2024 12:57 PM LEGAL SECRETARY RECEPTIONIST Special screening examination for viral disease VARICELLA ZOSTER ANTIBODY, IGG Routine 05/06/2024 12:57 PM LEGAL SECRETARY RECEPTIONIST Special screening examination for viral disease HEPATITIS C ANTIBODY Routine 05/06/2024 12:57 PM LEGAL SECRETARY RECEPTIONIST Encounter for screening for infections with predominantly sexual mode of transmission HEPATITIS B SURFACE ANTIGEN Routine 05/06/2024 12:57 PM LEGAL SECRETARY RECEPTIONIST Encounter for screening for infections with predominantly sexual mode of transmission HIV 1/2 ANTIBODY PLUS P24 ANTIGEN Routine 05/06/2024 12:57 PM LEGAL SECRETARY RECEPTIONIST Encounter for screening for infections with predominantly sexual mode of transmission RPR Routine 05/06/2024 12:57 PM LEGAL SECRETARY RECEPTIONIST Encounter for screening for infections with predominantly sexual mode of transmission POCT HCG, URINE, BY VISUAL COLOR Routine 05/06/2024 from Last 3 Months Results * US Sonohysterography (05/06/2024 1:16 PM LEGAL SECRETARY RECEPTIONIST) [place] Sac No free fluid visualized VIEWPOINT Left Antral Follicle Count Antral Follicle Count < 10 mm = ?5 VIEWPOINT Right Antral Follicle Count Antral Follicle Count < 10 mm = 8 VIEWPOINT Endometrial Thickness 8.2 mm&millim eters VIEWPOINT Anatomical Region Laterality Modality Pelvis N/A Ultrasound 05/06/2024 1:31 PM LEGAL SECRETARY RECEPTIONIST Impressions 05/06/2024 2:18 PM LEGAL SECRETARY RECEPTIONIST AFC ~13; 2 endom polyps (1 cm and 4 mm) on SHG; normal TET Narrative Procedure Note Gianluca Quiroz MD - 05/06/2024 IMPRESSION: AFC ~13; 2 endom polyps (1 cm and 4 mm) on SHG; normal TET us Gianluca Quiroz MD IMG US PROCEDURES Final Re sult * HIV 1/2 Antibody plus p24 Antigen Blood (05/06/2024 12:57 PM LEGAL SECRETARY RECEPTIONIST) HIV 1/2 ab + p24 ag Nonreactive Nonreactive Comment:Nonreactive for HIV- 1 antigen and HIV-1/HIV-2 antibodies. No laboratory evidence of HIV infection. If acute HIV infection is suspected, consider testing for HIV-1 RNA. Current interpretive data was last revised on 21. Blood 05/06/2024 12:5 7 PM LEGAL SECRETARY RECEPTIONIST 05/06/2024 2:13 PM LEGAL SECRETARY RECEPTIONIST us Gianluca Quiroz MD LAB MICROBIOLOGY - GENERAL ORDERABLES Final Result [facility] [place] [address] * Hepatitis C antibody Blood (05/06/2024 12:57 PM LEGAL SECRETARY RECEPTIONIST) Hep C Ab Nonreactive Nonreactive Comment:Antibodies to HCV no t detected. Does NOT exclude the possibility of recent exposure to HCV. Current interpretive data was last revised on 21 Blood 05/06/2024 12:5 7 PM LEGAL SECRETARY RECEPTIONIST 05/06/2024 2:13 PM LEGAL SECRETARY RECEPTIONIST Gianluca Quiroz MD LAB MICROBIOLOGY - GENERAL ORDERABLES Final Result Performing Organization Address [facility] Co de Phone Number JAN [facility] Department [place] [address] * Antimullerian hormone (AMH) (05/06/2024 12:57 PM LEGAL SECRETARY RECEPTIONIST) AMH, ab 1.28 0.15 - 7.49 ng/mL Comment: Interpretive Data Females: ?20 - 24 Years ?1.22 - 11.7 ng/mL ??25 - 29 Years ?0.89 - 9.85 ng/mL ??30 - 34 Years ?0.58 - 8.13 ng/mL ??35 - 39 Years ?0.15 - 7.49 ng/mL ??40 - 44 Years ?0.03 - 5.47 ng/mL Current interpretive data was last revised on 2017. Testing performed by: [facility], [address] [place] [phone] Blood 05/06/2024 12:5 7 PM LEGAL SECRETARY RECEPTIONIST 05/06/2024 2:13 PM LEGAL SECRETARY RECEPTIONIST Gianluca Quiroz MD LAB BLOOD ORDERABLES Final Result Performing Organization Address [facility] Co de Phone Number JAN [facility] [place] [address] * Rubella IgG antibody Blood (05/06/2024 12:57 PM LEGAL SECRETARY RECEPTIONIST) Rubella IgG Reactive Comment:Reactive: Results jasso ggest response to immunization or prior exposure to the virus. Blood 05/06/2024 12:5 7 PM LEGAL SECRETARY RECEPTIONIST 05/06/2024 2:13 PM LEGAL SECRETARY RECEPTIONIST Gianluca Quiroz MD LAB MICROBIOLOGY - GENERAL ORDERABLES Final Result Performing Organization Address [facility] Co de Phone Number [facility] [place] [address] * RPR Blood (05/06/2024 12:57 PM LEGAL SECRETARY RECEPTIONIST) RPR Nonreactive Nonreactive Blood 05/06/2024 12:5 7 PM LEGAL SECRETARY RECEPTIONIST 05/06/2024 2:13 PM LEGAL SECRETARY RECEPTIONIST Gianluca Quiroz MD LAB MICROBIOLOGY - GENERAL ORDERABLES Final Result Performing Organization Address [facility] de Phone Number [facility] Department [place] [address] * Hepatitis B Surface Antigen Blood (05/06/2024 12:57 PM LEGAL SECRETARY RECEPTIONIST) HepBsAg Nonreactive Nonreactive Blood 05/06/2024 12:5 7 PM LEGAL SECRETARY RECEPTIONIST 05/06/2024 2:13 PM LEGAL SECRETARY RECEPTIONIST Gianluca Quiroz MD LAB MICROBIOLOGY - GENERAL ORDERABLES Final Result Performing Organization Address [facility] Co de Phone Number [facility] [place] [address] * Type and screen (05/06/2024 12:57 PM LEGAL SECRETARY RECEPTIONIST) Kandice, indirect Negative ABO Rh B Positive [facility] Blood 05/06/2024 12:5 7 PM LEGAL SECRETARY RECEPTIONIST 05/06/2024 2:23 PM LEGAL SECRETARY RECEPTIONIST Narrative [facility] - 05/06/2024 3:14 PM LEGAL SECRETARY RECEPTIONIST Has the patient had Daratumumab or Isatuximab in the past 6 months?->Unknown Gianluca Quiroz MD LAB BLOOD BANK TEST ORDERA BLES Final Result Performing Organization Address [facility] Co de Phone Number [facility] Department [place] [address] * Varicella Zoster IgG antibody Blood (05/06/2024 12:57 PM LEGAL SECRETARY RECEPTIONIST) Pathologist [facility] VZV IgG Reactive Reactive Comment:Reactive: Results jasso ggest response to immunization or prior exposure to the virus. Blood 05/06/2024 12:5 7 PM LEGAL SECRETARY RECEPTIONIST 05/06/2024 2:13 PM LEGAL SECRETARY RECEPTIONIST Gianluca Quiroz MD LAB MICROBIOLOGY - GENERAL ORDERABLES Final Result Performing Organization Address [facility] Co de Phone Number [facility] Department [place] [address] * TSH (05/06/2024 12:57 PM LEGAL SECRETARY RECEPTIONIST) [facility] Thyroid Stimulating Hormone 1.51 0.30 - 4.20 mcIUnit/mL Comment:Testing performed by : [facility], [address] [place] [address], [facility] [address] [phone] Blood 05/06/2024 12:5 7 PM LEGAL SECRETARY RECEPTIONIST 05/06/2024 2:13 PM LEGAL SECRETARY RECEPTIONIST Gianluca Quiroz MD LAB BLOOD ORDERABLES Final Result Performing Organization Address [facility] Co de Phone Number [facility] Department [place] [address] * POCT hCG, urine, by visual color (05/06/2024) Pathologist [facility] test, ur, POC Negative 05/06/2024 Gianluca Quiroz MD POINT OF CARE TEST ORDERAB LES Final Result from Last 3 Months Insurance [facility] [place] [address] [place] [address] [facility] [place] [address] [place] [address] Care Teams Lipstick Molder Relationship Specialty Start Date End Date Lucinda Rodgers DO PCP - General Family Medicine 05/16/20
--- OUTSIDE RECORDS SUMMARY | 2024-05-22 03:06 | XMS_ITS | Clinical Summary ---
Author Organization [facility] Address [address] [place] [address]. [place], [place] [address] [place] [phone] Care Team Providers Care Welt Trimming Machine Operator Name Role Phone Kimberly Pulido DO Primary Care Provider [phone] Encounters Date Type Department Care Team Description 04/09/2024 Travel from Last 3 Months Social History Tobacco Use Types Packs/Day Years Used Date Smoking Tobacco: Never Assessed Comments Unknown Sex and Gender Information Value Date Recorded Sex Assigned at Not on file Legal Sex Female 10:43 AM STEEL PICKLER Gender Identity Not on file Sexual Orientation Not on file Plan of Treatment Upcoming Encounters Date Type Department Care Team (Late st Contact Info) Description 06/16/2024 10:40 AM STEEL PICKLER Office Visit [facility] [place] [address] [place] [address] Kimberly Pulido DO [address] [place], [place] [phone] Health Maintenance Due Date Last Done Comments [...] 2023 Influenza Adult (#1) 2024 PHQ-2 (Physician [place]) 04/22/2024 HPV Vaccines Aged Out No longer [...] patient's age to complete this topic Insurance [facility] Care Teams Welt Trimming Machine Operator Relationship Specialty Start Date End Date Kimberly Pulido DO [address] [place] [address] PCP - General FAMILY PRACTICE 03/05/24
--- NOTE | 2024-05-22 09:06 | PM.IMHP ---
H&P: HPI History of Present Illness Date/Time: 05/22/24 09:06 Chief Complaint: CIN2 Narrative: 38-year-old G0 who presents for LEEP. Her pap returned LSIL, ASC-H with positive HPV. Colposcopy was performed with ECC and cervical biopsy. Cervical biopsy returned KRYSTAL 2. Patient and her partner desire to conceive. They are currently being evaluated by fertility specialist and are considering IVF. Review of Systems Cardiovascular: Cardiovascular: Denies chest pain, Denies leg edema, Denies palpitations, Denies dyspnea and Denies dyspnea on exertion Respiratory: Respiratory: Denies cough, Denies dyspnea and Denies dyspnea on exertion Gastrointestinal: Gastrointestinal: Denies abdominal pain, Denies constipation, Denies diarrhea, Denies nausea and Denies vomiting Genitourinary: Genitourinary: Denies hematuria, Denies urinary frequency, Denies dysuria, Denies pelvic pain, Denies urinary incontinence and Denies vaginal discharge Neurologic: Reports system reviewed and no additional complaints, except as documented Psychiatric: Psychiatric: Reports no additional psychiatric complaints Endocrine: Endocrine: Denies palpitations PMFSH Past Medical History Medical History Ectopic Vitamin D deficiency Surgical History Surgical History History of salpingectomy (~2014) ectopic History of salpingectomy (~2011) ectopic Family History Family History Father Cerebrovascular accident Mother Uterine cancer Pancreatic cancer Grandparent Diabetes mellitus Maternal and paternal grandmother Asthma Social History Social History Years smoked: 15 Smoking status: Light tobacco smoker Tobacco type: cigars Smoking end date: 03/16/24 Additional smoking assessment comments: Smoked Black and Milds. One would last all day. 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 Gender identity (if verbalized by the patient): Female Sexual Orientation (if Verbalized by the Patient): Straight or Heterosexual Meds Home Medications and Allergies Home Medications ?Medication ?Instructions ?Recorded ?Confirmed ?Type cholecalciferol (vitamin D3) 250 250 mcg PO WEEKLY 01/13/24 05/15/24 History mcg (10,000 unit) capsule vit no.95-ferrous 1 tablet PO DAILY 05/07/24 05/15/24 History fumarate 28 mg-folic acid 800 mcg tablet () Allergies Allergy/AdvReac Type Severity Reaction Status Date / Time No Known Allergies Allergy Verified 05/15/24 14:51 Exam Const: General: no acute distress Eyes: EOM: EOMs intact bilaterally Neck: Neck: supple Thyroid: thyroid normal Chest: Breast/axilla inspection: normal inspection of the breasts Breast/axilla palpation: normal palpation of the breasts, normal palpation of the axillae and no axillary lymphadenopathy Resp: Effort & Inspection: normal respiratory effort Auscultation: clear to auscultation bilaterally Cardio: Rate: regular rate Rhythm: regular rhythm GI: Inspection: non-distended GI Palp: Yes Soft to palpation, No Tenderness to palpation present (GI) and No Guarding due to palpation present (GI) Auscultation: normal bowel sounds : General: No bladder normal to palpation External Female Exam: normal external appearance Speculum Exam - Vagina: normal vaginal discharge and No vaginal bleeding Speculum Exam - Cervix: nontender Bimanual exam- vagina & uterus: No bladder normal to palpation and No Cervical tenderness present OB/external & speculum: No vaginal bleeding Skin: General skin exam: normal color and no rashes or lesions noted Neuro: Cognition (Neuro): normal cognition Speech: normal speech Extrem: General: normal to inspection and no edema Psych: Mental Status: mental status grossly normal Affect: normal affect Assessment and Plan Assessment and plan (1) KRYSTAL II (cervical intraepithelial neoplasia II): Code(s): N87.1 - Moderate cervical dysplasia Status: Acute Assessment and Plan: 38-year-old female who had KRYSTAL 2 on cervical biopsy Her pap returned LSIL, ASC-H with positive HPV Cervical biopsy at 11:00 a.m. returned KRYSTAL 2 Discussed pre cancerous lesions of the cervix as well as management at length Patient given printed handout regarding precancerous lesions of the cervix Recommended excisional procedure LEEP procedure discussed at length. Risks, benefits, alternatives reviewed Patient desires to conceive in the future. Obstetric risk factors with LEEP procedure reviewed Patient agrees to proceed with LEEP procedure
--- NOTE | 2024-05-22 11:52 | WPDHPUPDATE1 ---
History and Physical Update Update Date/Time: 05/22/24 11:52 History and Physical has been reviewed, including an updated exam of the patient. There are NO changes in the patient's condition. Risks, benefits, and alternatives have been discussed and questions answered. Patient agrees to proceed with procedure.
[2024-05-22 12:00] VITALS: BP 100/61; PULSE 68; RESP 14; TEMP 36.5; O2SAT 100
[2024-05-22 12:20] VITALS: BP 132/54; PULSE 76; RESP 14; TEMP 36.8; O2SAT 97
[2024-05-22] MEDS: ACETAMINOPHEN 500 MG TABLET 1000 MG PO (12:20)
[2024-05-22] MEDS: LACTATED RINGERS 1,000 ML 30 ML IV CONT (12:20)
[2024-05-22 12:34] LABS: BEDSIDEPREGUCG Negative (Negative)
--- NOTE | 2024-05-22 13:19 | P.PNAN_ITS ---
Anes - Initial Pre Proc Eval Procedure: Operation Date: 05/22/24 13:30 Proposed Procedures p Loop Electrical Excision Procedure - Byron Li MD Date/Time: 05/22/24 13:19 Surgeon: Byron Li MD Pre Op Diagnosis: Cervical Dysplasia Patient Data Age: 38 Gender: F Height: 1.57 m Weight: 60 kg Last Vital Signs Temp 97.7 F 05/22/24 12:00 Pulse 68 05/22/24 12:00 Resp 14 05/22/24 12:00 BP 100/61 05/22/24 12:00 Pulse Ox 100 05/22/24 12:00 O2 Del Method Room Air 05/22/24 12:00 Allergies Allergy/AdvReac Type Severity Reaction Status Date / Time No Known Allergies Allergy Verified 05/22/24 12:33 Home Medications ?Medication ?Instructions ?Recorded ?Confirmed ?Type cholecalciferol (vitamin D3) 250 250 mcg PO WEEKLY 01/13/24 05/22/24 History mcg (10,000 unit) capsule vit no.95-ferrous 1 tablet PO DAILY 05/07/24 05/22/24 History fumarate 28 mg-folic acid 800 mcg tablet () Laboratory Tests 05/22/24 12:00 POC Urine HCG, Qual Negative (Negative) Patient hx anesthesia problems: none Family hx anesthesia problems: none Results Review: All pre-operative results and documents have been reviewed as part of the pre- operative evaluation. [facility] Past Medical History Medical History Ectopic Vitamin D deficiency Surgical History Surgical History History of salpingectomy (~2014) ectopic History of salpingectomy (~2011) ectopic Family History Family History Father Cerebrovascular accident Mother Uterine cancer Pancreatic cancer Grandparent Diabetes mellitus Maternal and paternal grandmother Asthma Social History Social History Years smoked: 15 Smoking status: Light tobacco smoker Tobacco type: cigars Smoking end date: 03/16/24 Additional smoking assessment comments: Smoked Black and Milds. One would last all day. 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 Gender identity (if verbalized by the patient): Female Sexual Orientation (if Verbalized by the Patient): Straight or Heterosexual Anes - Eval Final PreProcedure Day of Procedure 05/22/24 13:19 Patient weight: normal Heart: regular rate and rhythm Lungs: clear to auscultation Airway: Mallampati scale class II Neurological: alert and oriented Last oral intake: >/= 8 hours ASA classification: II Emergent: no Anesthetic plan: proceed Anesthesia type and monitoring: general GIVS and standard monitoring Results Review: All pre-operative results and documents have been reviewed as part of the pre- operative evaluation. Informed Consent: The patient's anesthetic plan and its attendant risks and benefits were discussed with the patient/family/POA. Questions were solicited and answers provided to the satisfaction of the patient/family/POA.
[2024-05-22] MEDS: LIDO 1%/EPINEPHRINE 1:100,000 20 ML VIAL 10 ML INFILTRATE (13:38)
--- NOTE | 2024-05-22 13:48 | W.PM.PROC2 ---
Procedure Note - Detailed Date of Procedure 05/22/24 Pre-op Diagnosis Cervical Dysplasia Post-op Diagnosis Same Procedure Performed LEEP- single pass Surgeon Byron Li MD Anesthesia General Indications CIN2 Findings grossly normal appearing cervix, increased aceto white uptake Description of Procedure After adequate anesthesia was established, the patient was placed in dorsal lithotomy position in yellow fin sitrrups. Insulated speculum was placed to visualize the cervix. Paracervical block was performed with 1% lidocaine with epinepherine. Acetic acid solution was then applied with good definition of the transformation zone. A 25 mm loop was used to excise the transformation zone. A total of one pass was made. The cervical specimen broke into 3 pieces. A single stitch was placed a 12 o'clock, a double stitch at 6 o'clock and a triple stitch at 9 o'clock on the cervical specimen. Hemostasis was obtained with ball cautery. Power settings cut 35 lee, coagulation 35 lee. Monsels solution was applied to the LEEP bed. Patient tolerated the procedure well. All sponge and instrument counts were correct. The patient was transferred to PACU without complications. Estimated Blood Loss 5 Drains No Packing No Pathology Yes (endocervical curettage, cervical biopsy) Complications No immediate complications Condition Stable Disposition PACU [facility] Billing Surgery - Charge Forward: Surgery Billing
[2024-05-22 13:53] VITALS: BP 108/67; PULSE 60; RESP 14; O2SAT 100
[2024-05-22 14:14] LABS: BEDSIDEPREGUCG Negative (Negative)
[2024-05-22 14:15] VITALS: BP 96/76; PULSE 71; RESP 14; O2SAT 97
[2024-05-22 14:35] VITALS: BP 100/78; PULSE 75; RESP 14
== END 2024-05-22 14:45 | disposition home or self-care (01) ==
PROVIDERS: PCP Family Medicine; Visit Provider Student in an Organized Health Care Education/Training Program
PROC: 0UBC7ZZ Excision of Cervix, Via Natural or Artificial Opening (ICD-10-PCS; CPT 57522; principal; 2024-05-22 13:30)
DX: N87.1 Moderate cervical dysplasia (principal); E55.9 Vitamin D deficiency, unspecified; F17.290 Nicotine dependence, other tobacco product, uncomplicated; F12.90 Cannabis use, unspecified, uncomplicated; Z98.890 Other specified postprocedural states; Z80.49 Family history of malignant neoplasm of other genital organs; Z80.0 Family history of malignant neoplasm of digestive organs; Z82.49 Family history of ischemic heart disease and other diseases of the circulatory system
CPT/HCPCS: 57522; 88307; A9270; J1596; J2003; J2004; J2250; J2405; J2704; J3010; J7120

== ENCOUNTER 2024-12-19 09:05 | Emergency (ER) | payer OTHER, SELFPAY ==
--- OUTSIDE RECORDS SUMMARY | 2023-07-25 03:20 | XMS_ITS ---
Author Organization [facility] Address [address] [place] [address] Care Team Providers Care Forestry And Wildlife Manager Name Role Phone Lacy Alicia Primary Care Provider [phone] REASON FOR VISIT Finger and Hand Pain Social History Sex Assigned At : Social History Observation Description Sex Assigned At Female Encounters Encounter Location Date Provider Diagnosis [address] [address] 07/25/2023 Lacy Alicia Plan Of Treatment No Information Progress Notes * Geoffrey PRESTONB:1985 ([age] yo F)Acc No.[id number]:07/25/2023 UNLOCKED PROGRESS NOTE Progress Notes Patient: Tito BRIANGeena Provider: Elisha Alicia, MSN, LEATHER SCRUBBER, SUPERVISOR CAPACITOR PROCESSING-BC, SUPERVISOR CAPACITOR PROCESSING-C :1985 A ge:38 Y S ex:Female Date:07/25/2023 Address:[facility] Subjective: * Chief Complaints: * 1 . Finger and Hand Pain. * Medical History: Objective: * Vitals: Assessment: Plan: * Treatment: * * Electronic signature of Wild Alicia APRN, [id number] on 12/19/2024 at 09:07 AM CDT Sign off status: Pending * Provider: Elisha Alicia, MSN, LEATHER SCRUBBER, SUPERVISOR CAPACITOR PROCESSING-BC, SUPERVISOR CAPACITOR PROCESSING-C Date: 0 07/25/2023 Generated for Printing/Faxing/eTransmitting on: 0 12/19/2024 09:07 AM CDT
--- NOTE | ~2024-12-19 | US_ITS ---
EXAMINATION: US OB <=14 wk fetus w TV, 12/19/2024 9:24 CDT HISTORY: ab pain and cramping Comparison: None Technique: York-scale and color Doppler images were obtained. Findings: Uterus: There is a single intrauterine gestational sac with pole corresponding to 9 weeks and 1 days with a yolks sac identified, heart rate 163. Uterus anteverted 9.8 x 8.6 x 7.3 cm. . Right Ovary:Right ovary 2.3 x 2.2 x 1.2 cm, no adnexal mass, normal flow. Left Ovary: Left ovary 2.3 x 3.9 x 3.5 cm, no adnexal mass: Normal flow. Free Fluid: None Impression: Single live intrauterine Reviewed, dictated and finalized at location A. Impression: Single live intrauterine
--- OUTSIDE RECORDS SUMMARY | 2024-12-19 09:07 | XMS_ITS | Patient Health Record ---
Author Organization [facility] Address [address] [place] [address] Care Team Providers Care Technical Service Specialist Name Role Phone Lacy Alicia Primary Care Provider Teresa Benson Unavailable [phone] Allergies No Known Allergies Results Component Value Reference Range Notes CBC With Differential/Platel et* Reviewed date:12/30/2023 08:30:05 AM Interpretation:Normal Performing Lab:[facility] [place], [address] [facility], [place], Phone - [phone], Director - Marlena Notes/Report: WBC 8.7 3.4-10.8 x10E3/uL RBC 3.90 [...] A1c* Reviewed date:12/30/2023 08:30:05 AM Interpretation:Normal Performing Lab:[facility], Phone - [phone], Director - [facility] Notes/Report: Hemoglobin A1c 5.1 4.8-5.6 % . Prediabetes: 5.7 - 6.4 Diabetes: >6.4 Glycemic control for adults with diabetes: <7.0 Vitamin D, 25-Hydroxy* Reviewed date:12/30/2023 08:30:06 AM Interpretation:Low Performing Lab:[facility] [place], [place] [address], Phone - [phone], Director - [facility] Notes/Report: Vitamin D, 25-Hydroxy 17.6 30.0-100.0 ng/mL Vitamin D deficiency has been defined by the [place] of Medicine and an Endocrine Society practice guideline as a level of serum 25-OH vitamin D less than 20 ng/mL (1,2). The Endocrine Society went on to further define vitamin D insufficiency as a level between 21 and 29 ng/mL (2). 1. IOM ([place] of Medicine). 2010. Dietary reference intakes for calcium and D. [place]: The National Academies Press. 2. Billy MF, Prakash NC, Robert DAVIS, et al. Evaluation, treatment, and prevention of vitamin D deficiency: an Endocrine Society clinical practice guideline. JCEM. 2010; 96(7):1911-30. Lipid Panel* Reviewed date:12/30/2023 08:30:06 AM Interpretation:Normal Performing Lab:[facility] [place], [address] [facility], Phone - [phone], Director - [facility] Notes/Report: Cholesterol, Total 175 100-199 mg/dL Triglycerides 47 0-149 mg/dL HDL Cholesterol 68 >39 mg/dL VLDL Cholesterol Brandon 10 5-40 mg/dL LDL Chol Calc ([facility]) 97 0-99 mg/dL CMP 14 Comprehensive Metabol ic Panel* Reviewed date:12/30/2023 08:30:06 AM Interpretation:Abnormal Performing Lab:[facility], [address] [facility], Phone - [phone], Director - [facility] Notes/Report: Glucose 95 70-99 mg/dL BUN 6 [...] T4 Reviewed date:12/30/2023 08:30:06 AM Interpretation:Normal Performing Lab:[facility] [place], [address] [facility], Phone - [phone], Director - [facility] Notes/Report: TSH 1.290 0.450-4.500 uIU/mL Reason For Referral No Information Medications Medication SIG (Take, Route, Frequency, Duration) Notes Start Date End Date Status DHA 300 MG as directed Orally o nce daily; Duration: 30 days 04/28/2020 Active Vitamins 28-0.8 MG 1 tablet Orally Once a day; Duration: 30 days 12/25/2023 Active Omeprazole 20 MG 1 capsule 30 minutes before morning meal Orally Once a day; Duration: 30 day(s) 05/28/2022 Not-Taking ProAir HFA 108 (90 Base) MCG/ACT 1 puff as needed Inhalation every 4 hrs; Duration: 14 days 04/26/2021 Not-Taking Cetirizine HCl 10 MG 1 tablet Orally Onc e a day; Duration: 30 day(s) 04/28/2020 Not-Miguel ing Naproxen 500 MG TAKE 1 TABLET BY RYLEE TH EVERY 12 HOURS WITH FOOD OR MILK NEEDED; Duration: 30 Not-Taking Famotidine 40 MG 1 tablet Orally Once a day; Duration: 30 days 12/25/2023 Active Vitamin D (Ergocalciferol) 1.25 MG (11760 UT) TAKE 1 CAPSULE BY MOUTH 1 TIME WEEKLY FOR 8 WEEKS Orally Once weekly; Duration: 30 days Active Social History Tobacco Use: [...] Status Risk Notes Problem Vitamin D deficiency (46894755) Vitamin D deficiency, unspecified (E55.9) Active confirmed Problem Tobacco user (642087655) Nicotine dependence, unspecified, uncomplicated (F17.200) Active confirmed Problem Abnormal uterine bleeding (48497326763210) Abnormal uterine and vaginal bleeding, unspecified (N93.9) Active confirmed Problem Gastroesophageal reflux disease (298287923) GERD (gastroesophagea l reflux disease) (K21.9) Active confirmed Problem Vitamin D deficiency (19562000) Vitamin D deficiency (E55.9) Active confirmed Problem (22028343) (Z33.1) Active confirmed Problem Impacted cerumen of both ears (2284381690365631) Impacted cerumen of both ears (H61.23) Active confirmed Problem Migraine without aura, not refractory (746683532) Migraine without aura and without status migrainosus, not intractable (G43.009) Active confirmed Problem Family planning (665701743) Family planning (Z30.09) Active confirmed Problem Tobacco use (176539624) Tobacco use disorder (F17.200) Active confirmed Problem Right tubal without intrauterine (O00.101) Active confirmed Problem Left tubal with intrauterine (O00.112) Active confirmed Problem Seasonal allergic rhinitis (903321020) Seasonal allergic rhinitis, unspecified trigger (J30.2) Active confirmed Vital Signs Heart Rate 67 /min 12/25/2023 Respiratory Rate 16 /min 12/25/2023 Blood pressure diastolic 69 mm Hg 12/25/2023 Oximetry 99 % 12/25/2023 Height 63 in 12/25/2023 Blood pressure systolic 104 mm Hg 12/25/2023 Weight 125.2 lbs 12/25/2023 BMI 22.18 kg/m2 12/25/2023 Encounters Encounter Location Date Provider Diagnosis [address] [address] 12/25/2023 Teresa Benson Nicotine dependence, unspecified, uncomplicated F17.200 ; Pre-conception counseling Z31.69 ; Vitamin D deficiency, unspecified E55.9 ; Acid reflux K21.9 ; Screening for deficiency anemia Z13.0 ; Screening for metabolic disorder Z13.228 ; Screening for diabetes mellitus Z13.1 ; Screening for thyroid disorder Z13.29 and Screening for hyperlipidemia Z13.[address] [address] 12/25/2023 Teresa Benson Screening for diabet es mellitus Z13.1 ; Screening for deficiency anemia Z13.0 ; UTI symptoms R39.9 ; Vitamin D deficiency, unspecified E55.9 ; Screening for hyperlipidemia Z13.220 ; Screening for metabolic disorder Z13.228 and Screening for thyroid disorder Z13.[address] [address] 12/30/2023 Teresa Benson Vitamin D deficiency E55.9 Assessments Encounter Date Diagnosis (ICD Code) Assessment Notes Treatment Notes Treatment Clinical Notes Section Notes 12/25/2023 Nicotine dependence, unspecified, uncomplicated (ICD-10 - F17.200) 12/25/2023 Pre-conception counseling (ICD-10 - Z31.69) 12/25/2023 Screening for diabetes mellitus (ICD-10 - Z13.1) 12/30/2023 Vitamin D deficiency (ICD-10 - E55.9) 12/25/2023 Screening for deficiency anemia (ICD-10 - Z13.0) 12/25/2023 Vitamin D deficiency, unspecified (ICD-10 - E55.9) 12/25/2023 Acid reflux (ICD-10 - K21.9) 12/25/2023 UTI symptoms (ICD-10 - R39.9) 12/25/2023 Screening for deficiency anemia (ICD-10 - Z13.0) 12/25/2023 Vitamin D deficiency, unspecified (ICD-10 - E55.9) 12/25/2023 Screening for metabolic disorder (ICD-10 - [...] Insured Coverage Start Date Coverage End Date [facility] [address] [address] [id number] 2 Geena Preston Self - patient is the insured 3 4 [facility] [address] [place] [address] [id number] Yevgeniy Prestona Self - patient is the insured 4 [facility] [address] [place] [address] [id number] Yevgeniy Prestona Self - patient is the insured 3 3 [facility] [address] [address] [place] [address] [id number] Yevgeniy Prestona Self - patient is the insured 3 3 [facility] Attn Claims Department [address] [place] [address] [phone] Geena Preston Self - patient is the insured 1 3 Medical (General) History Medical History History ICD Code Right tubal without intrauteri ne O00.101 Left tubal with intrauterine p regnancy O00.112 Surgical History Surgery Date(Month/Year) L ankle pins Hospitalization History Reason Date(Month/Year)
--- OUTSIDE RECORDS SUMMARY | 2024-12-19 09:07 | XMS_ITS | Encounter Summary ---
Author Organization [facility] Address [address] [place] [address] Care Team Providers Care Dip Stand Loader Name Role Phone Unavailable Primary Care Provider Unavailabl e Encounter Details Date Type Department Care Team (Late st Contact Info) Description 11/13/2024 Lab Requisition [facility] [address] [place] [address] Shilpa Castanon MD [address] 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 Gender Identity Not on file Sexual Orientation Not on file documented as of this encounter Plan of Treatment Not on file documented as of this encounter Procedures Procedure Name Priority Date/Time Associated Diagnosis Comments PROGESTERONE STAT 11/13/2024 8:51 AM CDT Encounter for test, result unknown HCG BETA BLOOD QUANTITATIVE STAT 11/13/2024 8:51 AM CDT Encounter for test, result unknown documented in this encounter Results * HCG BETA BLOOD QUANTITATIVE (11/13/2024 8:51 AM CDT) hCG Quantitative 626.17 mIU/mL 11/14/19 12:14 PM CDT [facility] Blood BLOOD SPECIMEN / Unknown Venipuncture / Unknown 11/13/2024 8:51 AM CDT 11/13/2024 10:59 AM CDT Narrative [facility] - 11/13/2024 12:14 PM CDT hCG Reference Range, mIU/mL: Non Females 0-6.0 Perimenopausal Females ages 41-55* 0-7.7 Postmenopausal Females age >55* 0-14 Females, Weeks after Last Menstrual Period 0.2-1 week 5-50 1 - 2 weeks 50-500 2 - 3 weeks 100-5000 3 - 4 weeks 500-10,000 4 - 5 weeks 1000-50,000 5 - 6 weeks 10,000-100,000 6 - 8 weeks 15,000-200,000 2 - 3 months 10,000-100,000 Trophoblastic Disease >100,000 *In higher than expected hCG in females > age 40, a serum FSH >20 IU/L makes unlikely. Shilpa Castanon MD LAB - CHEMISTRY ORDERABLES Fi nal Result Performing Organization Address [facility] de Phone Number [facility] [address] [place], [place] [phone] * PROGESTERONE (11/13/2024 8:51 AM CDT) [facility] Progesterone 56.3 ng/mL 11/13/2024 12:14 PM CDT [facility] Blood BLOOD SPECIMEN / Unknown Venipuncture / Unknown 11/13/2024 8:51 AM CDT 11/13/2024 10:59 AM CDT Narrative [facility] - 11/13/2024 12:14 PM CDT Normal Menstruating Females: Follicular Phase <0.5 ng/mL Luteal Phase 1.2 - 15.9 ng/mL Postmenopausal Females: <0.5 ng/mL Females: First Trimester 2.8 - 147.3 ng/mL Second Trimester 22.5 - 95.3 ng/mL Third Trimester 27.9 - 242.5 ng/mL Males: <0.5 ng/mL Shilpa Castanon MD LAB - CHEMISTRY ORDERABLES Fi nal Result Performing Organization Address [facility] de Phone Number [facility] [address] [place] [id number] documented in this encounter Visit Diagnoses Diagnosis Encounter for test, result unknown documented in this encounter
--- OUTSIDE RECORDS SUMMARY | 2024-12-19 09:07 | XMS_ITS | Clinical Summary ---
Author Organization [facility] Address [address] [facility] [place] [address] Care Team Providers Care Undercar Specialist Name Role Phone Unavailable Primary Care Provider Unavailabl e Source Comments [facility],non-owned Affiliates and Associated Physician Practices is amultiple site organization consisting of ambulatory clinics and hospital sitesin [place], [place], [place] and [place]. This disclosure is being madepursuant to the Care Everywhere program and may not contain all information available regarding this patient. Last updated 18.[facility] Active Problems Problem Noted Date Diagnosed Date Persons encountering health services in other specified circumstances 04/04/2016 Overview (07/22/2017): Records from Jose Kirkpatrick in [place] reviewed From 04/06 prob list: GC, PId, depression, HPV + Psh: right salpingectomy 2010 for ectopic Ob hx 2010 ectopic [facility] 2012 sab Another note says bilat salpingectomies Labs 03/27/16 prl 6.1, fsh 4.5, lh 114.8, tsh 1.02, DHEAS 410, hgba1c 5.1, testos 31, total faycmcxdl8dz 173, hdl 77, creatinine 1.01 otherwise normal cmp, hsv I and II CELIA neg x2, GC.CT. Trich neg x3, Encounters Date Type Department Care Team Description 11/13/2024 Lab Requisition 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 Gender Identity Not on file Sexual Orientation Not on file Plan of Treatment Health Maintenance Due Date Last Done Comments HIV SCREENING 2002 HEPATITIS C SCREENING 05/19/2005 DTAP/TDAP/TD VACCINES (1 - Tdap) 2006 HEPATITIS B VACCINE (1 of 3 - 19+ 3-dose series) 2006 PAP SMEAR 2008 HPV VACCINE (1 - 3-dose SCDM series) 2014 COVID-19 VACCINE (2023-2 5 season) 2023 DEPRESSION SCREENING 04/22/2024 INFLUENZA VACCINE (#1) 2024 ZOSTER VACCINE (1 of 2) 2037 HIB VACCINE Aged Out No longer eligi ble based on patient's age to complete this topic MENINGOCOCCAL (Group B) VACC INE SHARED DECISION-MAKING Aged Out No longer eligibl e based on patient's age to complete this topic MENINGOCOCCAL GROUPS A/C/Y/W VACCINE Aged Out No longer eligible b ased on patient's age to complete this topic PNEUMOCOCCAL VACCINE Aged Out No long er eligible based on patient's age to complete this topic Procedures Procedure Name Priority Date/Time Associated Diagnosis Comments HCG BETA BLOOD QUANTITATIVE STAT 11/13/2024 8:51 AM CDT Encounter for test, result unknown PROGESTERONE STAT 11/13/2024 8:51 AM CDT Encounter for test, result unknown from Last 3 Months Results * PROGESTERONE (11/13/2024 8:51 AM CDT) Progesterone 56.3 ng/mL 11/13/2024 12:14 PM CDT [facility] Blood BLOOD SPECIMEN / Unknown Venipuncture / Unknown 11/13/2024 8:51 AM CDT 11/13/2024 10:59 AM CDT Narrative [facility] - 11/13/2024 12:14 PM CDT Normal Menstruating Females: Follicular Phase <0.5 ng/mL Luteal Phase 1.2 - 15.9 ng/mL Postmenopausal Females: <0.5 ng/mL Females: First Trimester 2.8 - 147.3 ng/mL Second Trimester 22.5 - 95.3 ng/mL Third Trimester 27.9 - 242.5 ng/mL Males: <0.5 ng/mL Shilpa Castanon MD LAB - CHEMISTRY ORDERABLES Fi nal Result Performing Organization Address [facility]/ZIP Co de Phone Number [facility] [address] [place] [address] * HCG BETA BLOOD QUANTITATIVE (11/13/2024 8:51 AM CDT) [facility] hCG Quantitative 626.17 mIU/mL 11/14/19 12:14 PM CDT [facility] Blood BLOOD SPECIMEN / Unknown Venipuncture / Unknown 11/13/2024 8:51 AM CDT 11/13/2024 10:59 AM CDT Narrative [facility] - 11/13/2024 12:14 PM CDT hCG [...] ORDERABLES Fi nal Result Performing Organization Address City/[facility]/ZIP Co de Phone Number [facility] [address] [place] [address] from Last 3 Months Insurance [facility]
--- OUTSIDE RECORDS SUMMARY | 2024-12-19 09:07 | XMS_ITS | Clinical Summary ---
Author Organization [facility] Address [address] [place] [address] Care Team Providers Care Program Rep Name Role Phone Krista Mullen PRINTMAKER Primary Care Provider [phone] Allergies No known active allergies Medications VITAMINS 28-0.8 MG tablet Take 1 tablet by mouth daily. 06/03/2024 Active Active Problems Problem Noted Date Diagnosed Date Decreased glomerular filtration rate (GFR) 07/07 Overview (07/07/2024): 07/07/2024: CMP 06/23/2024 GFR ESTIMATE >90 ML/MIN/1.73 M2 80 Low Assessment & Plan (07/07/2024 12:42 PM CDT): Plan to repeat in 3 months. Elevated low density lipoprotein (LDL) cholester ol level 07/07/2024 Overview (07/07/2024): Component Ref Range & Units 06/23/24 0801 CHOLESTEROL <200 MG/DL 195 TRIGLYCERIDES <150 MG/DL 50 HDL >40 MG/DL 71 LDL-C <100 MG/DL 114 High VLDL CALCULATION 5 - 28 MG/DL 10 CHOL/HDL RATIO 0.0 - 4.0 2.7 LDL/HDL 0.41 - 2.13 1.6 NON HDL CHOLESTEROL <140 MG/DL 124 Assessment & Plan (07/07/2024 12:34 PM CDT): No medication is necessary at this time. Discussed with patient lifestyle recommendations such as increasing physical activity and dietary modifications. Dietary modifications can help decrease cholesterol include decreasing intake of saturated fat which is included in meat, eggs, butter however more importantly I recommend increasing intake of dietary fiber through whole grains (quinoa, brown rice, oats) and legumes (beans, chickpeas, lentils). Recommended minimum daily amount of dietary fiber for adult women is 25 g. She can supplement diet with psyllium husk such as found in Metamucil in addition to increasing dietary intake of whole grains, legumes, fruits and vegetables. Depression screening negative 07/07/2024 Overview (07/07/2024): 07/07/2024: PHQ-2 Score PHQ-2 Score: 0 PHQ-9: 07/07/2024 12:03 PM 06/16/2024 10:35 AM PHQ2/PHQ 9 DEPRESSION SCREEN QUESTIONAIRE Little interest or pleasure in doing things Not at all Not at all Feeling down, depressed, or hopeless Not at all Not at all Patient Health Questionnaire-2 Score 0 0 Trouble falling or staying asleep, or sleeping too much Not at all Feeling tired or having little energy Not at all Poor appetite or overeating Not at all Feeling bad about yourself - or that you are a failure or have let yourself or your family down Not at all Trouble concentrating on things, such as reading the newspaper or watching television Not at all Moving or speaking so slowly that other people could have noticed? Or the opposite - being so fidgety or restless that you have been moving around a lot more than usual. Not at all Thoughts that you would be better off or hurting yourself in some way Not at all Patient Health Questionnaire-9 Score 0 How difficult have these problems made it for you to do your work, take care of things at home, or get along with other people? Not difficult at all Not difficult at all Inadequate sleep hygiene 07/07/2024 Overview (07/07/2024): 07/07/2024: Patient reports taking a nap almost every day. She reports she is tired and feels like she needs to take a nap every day. She reports she does not have consistent bedtime. She reports has to wake up early for her job. Assessment & Plan (07/07/2024 12:36 PM CDT): Counseled patient regarding sleep hygiene and its importance. She is also counseled regarding participating in regular physical activity. We will follow-up in 4 weeks to evaluate for improvement. Hair thinning 07/07/2024 Overview (07/07/2024): 07/07/2024: She complains of hair thinning. She denies hair falling out in clumps. She reports her hair used to be thicker and longer. Assessment & Plan (07/07/2024 12:44 PM CDT): Patient has subjective hair thinning. Her hair per her report is not falling out in clumps. TSH 1.51 05/06/2024 Continue multivitamin daily Plan to evaluate at further visit Cervical cancer screening 06/16/2024 Overview (07/07/2024): Initial visit 06/16/2024: Patient recently had a LEEP on 05/22/2024. She reports every Pap smear she has had has been abnormal and she has been positive for HPV. Pap 01/13/2024 showed low-grade squamous intraepithelial lesion HPV positive Assessment & Plan (07/07/2024 12:40 PM CDT): Requesting records from patient's ANALYSIS LEAD Dr. Byron Li MD. Assessment & Plan (06/16/2024 1:49 PM COMPUTATIONAL LINGUIST): Requesting records from patient's ANALYSIS LEAD Dr. Byron Li MD. History of ectopic 06/16/2024 Overview (06/16/2024): Initial visit: She reports she has had two ectopic pregnancies in the past. First in 2011 and second in 2015. Status post loop electrosurg ical excision procedure (LEEP) of cervix 06/16/2024 Overview (06/16/2024): Initial visit 06/16/2024: She had LEEP procedure 05/22/[address] Byron Li MD and results showed no residual/recurrent squamous intraepithelial lesion. She reports she was told to follow-up in 1 year. Assessment & Plan (06/16/2024 1:56 PM COMPUTATIONAL LINGUIST): Is to follow-up for repeat Pap in 1 year. Vitamin D insufficiency 06/16/2024 Overview (07/07/2024): Initial visit 06/16/2024: She reports she was previously being treated with vitamin D supplementation. She reports she does not remember last number of lab value for vitamin D levels. She is not currently taking vitamin D supplementation and is requesting refill. Component Ref Range & Units 06/23/24 0801 VITAMIN D 25 HYDROXY TOTAL S/P/B 30 - 100 NG/ML 25.0 Low Assessment & Plan (07/07/2024 12:08 PM CDT): She can continue taking daily multivitamin and can take additional [id number] vitamin D3 supplementation 1000- 2000 IU daily. Assessment & Plan (06/16/2024 1:47 PM COMPUTATIONAL LINGUIST): Vitamin D levels ordered. Family history of cervical cancer 06/16/2024 Overview (06/16/2024): Initial visit 06/16/2024: She reports her mother had cervical cancer that spread into her pelvis and abdomen. Family history of coronary artery disease in fat her 06/16/2024 Overview (06/16/2024): Initial visit 06/16/2024: Patient's father from [place] at young age less than 50. Need for prophylactic vaccination against hepati tis B virus 06/16/2024 Overview (06/16/2024): Initial visit 06/16/2024: Patient recently had testing done which showed hepatitis B surface antigen nonreactive 05/06/2024. She reports she is unsure when/if she has had hepatitis B vaccine series. Assessment & Plan (07/07/2024 12:08 PM CDT): Due for second hepatitis B vaccine on or after 07/14/2024 Assessment & Plan (06/16/2024 1:55 PM COMPUTATIONAL LINGUIST): I recommend patient participate in hepatitis B vaccine series. She was given first dose today. She was also provided CDC VIS and endorsed no questions. Cigarette nicotine dependence in remission 06/16 Overview (06/16/2024): Initial visit 06/16/2024: Reports smoking approximately 1.5 PPD since age of 17 up until approximately August 2023. 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 She reports she is initiating treatment with fertility specialist through [facility] this year and hoping to do IVF. Assessment & Plan (07/07/2024 12:40 PM CDT): She reports she has a virtual consultation appointment this afternoon with fertility specialist Immunizations Immunization Administration Dates Next Due Hepatitis B (Recombivax Hb 10 Mcg) 06/16/2024 Family History Medical History Relation Comments No Known Problems Brother Coronary artery disease Father [place] Pancreatic cancer Maternal Aunt Cancer Maternal Grandfather from c ancer Asthma Maternal Grandmother Pneumonia Maternal Grandmother COPD Mother COPD from smokin g cigarettes Cervical cancer Mother from cancer Hypertension Mother High blood press ure No Known Problems Paternal Grandfather No Known Problems Paternal Grandmother Relation Status Comments Brother Alive Father Maternal Aunt Alive Maternal Grandfather Maternal Grandmother Mother Paternal Grandfather Paternal Grandmother Social History Tobacco Use Types Packs/Day Years Used Date Smoking Tobacco: Former Cigarettes 1.5 20.3 0 04/22/2003 - 08/21/2023 Smokeless Tobacco: Never Tobacco Cessation:Counseling Given: No Comments:Trying to get healthy so we can start our family Alcohol Use Standard Drinks/Week Comments Not Currently 0 (1 standard drink = 0.6 oz pur e alcohol) PHQ-2 Answer Date Recorded Patient Health Questionnaire-2 Score 0 07/07/2024 Comments No Sex and Gender Information Value Date Recorded Sex Assigned at Female 06/16/2024 10:22 AM COMPUTATIONAL LINGUIST Legal Sex Female 10:43 AM COMPUTATIONAL LINGUIST Gender Identity Female 06/16/2024 10:22 AM COMPUTATIONAL LINGUIST Sexual Orientation Not on file Last Filed Vital Signs Vital Sign Reading Time Taken Comments Blood Pressure 93/62 07/07/2024 11:06 AM CDT Pulse 85 07/07/2024 11:06 AM CDT Temperature 36.4 C (97.5 F) 07/07/2024 11:06 AM CDT Respiratory Rate 16 07/07/2024 11:0 6 AM CDT Oxygen Saturation 100% 07/07/2024 11: 06 AM CDT Inhaled Oxygen Concentration - - Weight 59.8 kg (131 lb 12.8 oz) 025 11:06 AM CDT Height 157.5 cm (5' 2) 07/07/2024 11:0 6 AM CDT Body Mass Index 24.11 07/07/2024 11:06 AM CDT Plan of Treatment Health Maintenance Due Date Last Done Comments Cervical Cancer Screening Pa p Smear (Age 30 to 64) Every 3 Years 1987 Hepatitis B Vaccines (1 of 3 - 19+ 3-dose series) 2006 06/16/2024 HPV Vaccines (1 - 3-dose SCD M series) 2014 Annual Physical 07/07/2025 07/07/2024 COVID-19 Vaccine (1 - 2023-2 5 season) 2025 Postponed from 12/21 (Patient Refused) DTaP, Tdap and Td Vaccines ( 1 - Tdap) 07/07/2025 Postponed from 05/24 (Patient Refused) Cervical Cancer Screening Pa p with HPV Testing (Age 30 to 64) Every 5 Years 01/12/2029 01/13/2024 Cervical Cancer Screening with HPV 01/12/2029 Hepatitis C Completed 05/06/2024 PHQ-2 (Physician [place]) Completed 07/07/2024 Meningococcal B Vaccine Aged Out No l onger eligible based on patient's age to complete this topic Meningococcal Vaccine Aged Out No edwin brenna eligible based on patient's age to complete this topic Pneumococcal Vaccine: Pediat rics (0 to 5 Years) and At-Risk Patients (6 to 49 Years) Aged Out No longer eligi ble based on patient's age to complete this topic RSV Immunizations Under 20 Months Aged Out No longer eligible based on patient's age to complete this topic Procedures Procedure Name Priority Date/Time Associated Diagnosis Comments OUTSIDE CYTOPATH CERV/VAG IN TERPRET (PAP) 01/13/2024 from Last 3 Months or Most Recently Relevant to Health Maintenance Results * PAP SMEAR WITH HPV (01/13/2024) 01/13/2024 [facility] Scanned SCANNING Final Resu lt from Last 3 Months or Most Recently Relevant to Health Maintenance Insurance [facility] Care Teams Program Rep Relationship Specialty Start Date End Date Krista Mullen, AUTUMN [address] [facility] [address] [place] [address] PCP - General NURSE PRACTITIONER 12/16/24
--- OUTSIDE RECORDS SUMMARY | 2024-12-19 09:08 | XMS_ITS | Clinical Summary ---
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 Gender Identity Female 08/01/2020 9:48 AM CDT Sexual Orientation Straight 08/01/2020 9: 48 AM CDT Obstetrics History Para Term AB IAB SAB Ectopic Multiple Livin g Live Births 2 2 2 Date Outcome GA Total Labor Labor/2nd/3rd Weight Sex Type Anes PTL Sonia A1 A5 Name Clin 2012 Ectopic 2015 Ectopic Comments G1: salpingectomy G2: salpingectomy Last Filed Vital Signs Vital Sign Reading Time Taken Comments Blood Pressure 121/81 05/06/2024 1:15 PM FACTORY FOCUS TECHNICIAN Pulse 66 05/06/2024 1:15 PM FACTORY FOCUS TECHNICIAN Temperature 37 C (98.6 F) 01/08/2022 9:41 PM CDT Respiratory Rate 18 01/08/2022 9:41 PM CDT Oxygen Saturation 98% 01/08/2022 9:41 PM CDT Inhaled Oxygen Concentration - - Weight 61.1 kg (134 lb 12.8 oz) 05/06/2024 1:15 PM FACTORY FOCUS TECHNICIAN Height 157.5 cm (5' 2) 05/06/2024 1:15 PM FACTORY FOCUS TECHNICIAN Body Mass Index 24.66 05/06/2024 1:15 PM FACTORY FOCUS TECHNICIAN Plan of Treatment Health Maintenance Due Date Last Done Comments Cervical Cancer Screening 1987 Depression Screening 1987 DTaP/Tdap/Td Vaccine (1 - Tdap) 1998 Varicella Vaccines (1 of 2 - 13+ 2-dose series) 2000 Hepatitis B Screening 2005 Regular Well Visit/Exam 18-64 2005 Covid-19 Vaccine (2 - 2023-2 5 season) 2023 04/10/2021 Influenza Vaccine (#1) 2024 , 09/22/2014 HPV Vaccines Completed 07/21/2021, 07/24/2019, 05/14/2019 Hepatitis C Screening Completed 05/06/2024 Pneumococcal vaccine <65 Aged Out No longer eligible based on patient's age to complete this topic Procedures Procedure Name Priority Date/Time Associated Diagnosis Comments HEPATITIS C ANTIBODY Routine 05/06/2024 12:57 PM FACTORY FOCUS TECHNICIAN Encounter for screening for infections with predominantly sexual mode of transmission from Last 3 Months or Most Recently Relevant to Health Maintenance Results * Hepatitis C antibody Blood (05/06/2024 12:57 PM FACTORY FOCUS TECHNICIAN) Hep C Ab Nonreactive Nonreactive Comment:Antibodies to HCV no t detected. Does NOT exclude the possibility of recent exposure to HCV. Current interpretive data was last revised on 21 Blood 05/06/2024 12:5 7 PM FACTORY FOCUS TECHNICIAN 05/06/2024 2:13 PM FACTORY FOCUS TECHNICIAN Gianluca Quiroz MD LAB MICROBIOLOGY - GENERAL ORDERABLES Final Result [facility] Department [place] [address] from Last 3 Months or Most Recently Relevant to Health Maintenance Insurance [employer] [facility] [address] [place] [address] [facility] Care Teams Refrigerated Company Driver Relationship Specialty Start Date End Date Lucinda Rodgers DO PCP - General Family Medicine 05/16/20
--- NOTE | 2024-12-19 09:19 | ED_ITS ---
HPI - General Adult General Chief complaint: Abdominal Pain Stated complaint: abd pain 10 weeks Time Seen by Provider: 12/19/24 09:09 History of Present Illness HPI narrative: 39-year-old female that is 020 presented to the emergency department for evaluation for left CVA tenderness and right lower quadrant pain. Patient is 10 weeks and does follow-up with Dr. Li. Patient did have in-vitro fertilization on 11/02. Patient did have follow-up with Dr. Li approximately 2 days ago and was feeling fine at that time other than having some vaginal discharge. Patient denies any pain with urination. Patient does complain of left CVA tenderness pain but states she often has back pain. Patient does have new right lower quadrant abdominal pain. Related Data Home Medications ?Medication ?Instructions ?Recorded ?Confirmed ?Last Taken ?Type cholecalciferol (vitamin D3) 250 250 mcg PO WEEKLY 12/17/24 05/18/24 History mcg (10,000 unit) capsule vit no.95-ferrous 1 tablet PO DAILY 05/07/24 12/17/24 05/18/24 History fumarate 28 mg-folic acid 800 mcg tablet () estradiol 2 mg tablet 1 mg PO TID 12/17/24 5 Unknown History folic acid 1 mg tablet 1 mg PO 12/17/24 12/17/24 Un known History progesterone 50 mg/mL mg IM 12/17/24 12/17/24 Unkn own History intramuscular oil Allergies Allergy/AdvReac Type Severity Reaction Status Date / Time No Known Allergies Allergy Verified 12/17/24 15:38 Review of Systems 2 Review of Systems: All systems reviewed & are unremarkable except as noted in HPI and below PMFSH Past Medical History Medical History (Updated 12/19/24 @ 11:04 by Ivan Ang MD) Ectopic Vitamin D deficiency Surgical History Surgical History H/O LEEP History of salpingectomy (~2014) ectopic History of salpingectomy (~2011) ectopic Family History Family History Father Cerebrovascular accident Mother Uterine cancer Pancreatic cancer Grandparent Diabetes mellitus Maternal and paternal grandmother Asthma Social History Social History Years smoked: 15 Smoking status: Former smoker Tobacco type: cigars Smoking end date: 03/16/24 Additional smoking assessment comments: Smoked Black and Milds. One would last all day. 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 HEAD: normocephalic, atraumatic. EYES: PERRLA/EOMI, conjunctivae clear. NOSE: Normal no drainage EARS:TMS clear with good light reflex. THROAT: Pharynx clear, no exudate. NECK: Supple. No adenopathy, no masses. RESPIRATORY: Airway patent, respirations nonlabored. Clear to auscultation bilaterally, no rales, rhonchi, wheezing. CARDIOVASCULAR: Regular rate and rhythm without murmurs rubs or gallops. ABDOMINAL: Right lower quadrant tenderness to palpation, gravid abdomen, left CVA tenderness to palpation MUSCULOSKELETAL: Moves all extremities. Strength/ROM intact, No edema, No calf tenderness. NEURO: Alert. Cranial nerves II through XII intact. Good gait. Good coordination SKIN: Warm, dry. Normal Color Course Vital Signs Vital signs: Vital Signs Temperature 98.1 F 12/19/24 09:20 Pulse Rate 88 12/19/24 09:20 Respiratory Rate 16 12/19/24 09:20 Blood Pressure 118/64 12/19/24 09:20 Pulse Oximetry 100 12/19/24 09:20 Oxygen Delivery Room Air 12/19/24 09:20 Temperature 98.1 F 12/19/24 09:20 Pulse Rate 77 12/19/24 13:05 Respiratory Rate 16 12/19/24 13:05 Blood Pressure 110/70 12/19/24 13:05 Pulse Oximetry 100 12/19/24 13:05 Oxygen Delivery Room Air 12/19/24 09:20 Medical Decision Making [facility] Narrative Medical decision making narrative: 39-year-old female presents emergency department for evaluation for flank pain and right lower quadrant pain. Patient is afebrile but does have a leukocytosis of 13.3 which is normal for , patient's hemoglobin 11.7. Patient has no acute abnormalities on her CMP UA was positive for leukocyte esterase, high white blood cells and +2 bacteria with only occasional squamous. Patient was negative for gonorrhea and chlamydia. Patient's blood type was B positive. Ultrasound shows a single uterine of 9 weeks and 1 day. Patient is being treated with antibiotics for a urinary tract infection. Patient was encouraged close follow-up with OB Gyne. All questions were addressed patient was comfortable plan for discharge and close follow-up. Differential Diagnosis Differential Diagnosis: UTI, ectopic , gonorrhea, chlamydia Vital Signs Vital Signs: Vital Signs Temperature 98.1 F 12/19/24 09:20 Pulse Rate 88 12/19/24 09:20 Respiratory Rate 16 12/19/24 09:20 Blood Pressure 118/64 12/19/24 09:20 Pulse Oximetry 100 12/19/24 09:20 Oxygen Delivery Room Air 12/19/24 09:20 Temperature 98.1 F 12/19/24 09:20 Pulse Rate 77 12/19/24 13:05 Respiratory Rate 16 12/19/24 13:05 Blood Pressure 110/70 12/19/24 13:05 Pulse Oximetry 100 12/19/24 13:05 Oxygen Delivery Room Air 12/19/24 09:20 Lab Data Lab results reviewed: Yes I reviewed the patient's lab results. 12/19/24 09:35 12/19/24 09:35 Labs: Lab Results 12/19/24 12/19/24 Range/Units 09:35 09:37 WBC 13.3 H (4.5-10.0) K/mm3 RBC 3.86 L (4.2-5.4) M/mm3 Hgb 11.7 L (12.0-15.0) g/dL Hct 35.3 L (37.0-47.0) % MCV 91.5 (80-100) fl MCH 30.3 (26-34) pg MCHC 33.1 (32-36) g/dl RDW 11.9 (11.5-14.5) % Plt Count 298 (150-375) k/mm3 MPV 8.7 (7.4-10.4) fl Immature Gran % (Auto) 0.5 (0-0.5) % Neut % (Auto) 75.1 H (45.5-73.1) % Lymph % (Auto) 17.5 L (18.3-44.2) % Jackson % (Auto) 5.6 (2.6-8.5) % Eos % (Auto) 1.1 (0-4.4) % Baso % (Auto) 0.2 (0.2-1.2) % Lymph # (Auto) 2.32 (0.9-3.2) K/mm3 Jackson # (Auto) 0.7 H (0.1-0.6) K/mm3 Eos # (Auto) 0.2 (0-0.3) K/mm3 Baso # (Auto) 0.0 (0.0-0.1) K/mm3 Abs Immat Gran (auto) 0.06 H (0.00-0.031) K/mm3 Absolute Neuts (auto) 10.0 H (1.3-6.7) K/mm3 Absolute Nucleated RBC 0.000 (0.0-0.012) K/mm3 Nucleated RBC % 0.0 (0.0-0.2) % PT 12.8 (11.1-14.7) Seconds INR 0.9 APTT 27.9 (22.3-36.8) Seconds Sodium 131 L (137-145) mmol/L Potassium 4.1 (3.4-5.0) mmol/L Chloride 102 (98-107) mmol/L Carbon Dioxide 22 (22-30) mmol/L Anion Gap 7 (4-12) mmol/L BUN 9 D (7-17) mg/dL Creatinine 0.75 (0.7-1.0) mg/dL Estim Creat Clear Calc 70 ml/min Estimated GFR > 60 (59 - ) Glucose 90 (65-110) mg/dL Calcium 9.6 (8.4-10.2) mg/dL Total Bilirubin 0.3 (0.2-1.3) mg/dL AST 43 H (14-36) U/L ALT 19 (6-35) U/L Alkaline Phosphatase 53 (38-126) U/L Total Protein 7.4 (6.3-8.2) g/dL Albumin 4.0 (3.5-5.1) g/dL Beta HCG, Quant 652340.00 mIU/ML Urine Color Yellow (Yellow) Urine Appearance Cloudy H (Clear) Urine pH 7.0 (5.0-9.0) Ur Specific [place] 1.013 (1.001-1.035) Urine Protein Negative (Negative) mg/dL Urine Glucose (UA) Negative (Negative) mg/dL Urine Ketones Negative (Negative) mg/dL Ur Blood (Man) Negative (Negative) Urine Nitrate Negative (Negative) Urine Bilirubin Negative (Negative) Urine Urobilinogen 0.2 (<2.0) mg/dL Add Ur Microanalysis Reviewed Leukocyte Esterase Rfl Trace H (Negative) ANTHONY/UL Urine RBC 0-2 (0-2) /hpf Urine WBC 11-20 H (0-3) /hpf Ur Squamous Epith Cells Occasional (Few) /hpf Urine Bacteria 2+ H /hpf Urine Casts 0-2 C. trachomatis (PCR) Not detected (NOT DETECTE) N. gonorrhoeae (PCR) Not detected (NOT DETECTE) Blood Type B Positive Antibody Screen Negative Imaging Data Radiologist's impression: Impressions Obstetrics Ultrasound 12/19/24 12:18 Impression: Single live intrauterine Discharge Plan Discharge Clinical Impression: , UTI (urinary tract infection) Patient Disposition: Home Condition: Stable Instructions: Antibiotic Form, Urinary Tract Infection in (ED) Additional Instructions: Antibiotic as directed until completed. Have close follow-up with your OB Gyne. If you have any worsening symptoms then please call or return to the emergency department. Patient Language: Citizen Of [place] Prescriptions: New nitrofurantoin monohyd/m-cryst [Macrobid] 100 mg capsule 100 mg PO Q12H 5 Days Qty: 10 0RF Rx Instructions: must administer with a meal/food No Action cholecalciferol (vitamin D3) 250 mcg (10,000 unit) capsule 250 mcg PO WEEKLY PNV no.95-ferrous fumarate-FA [] 28 mg iron- 800 mcg tablet 1 tablet PO DAILY progesterone 50 mg/mL oil IM estradiol 2 mg tablet 1 mg PO TID folic acid 1 mg tablet 1 mg PO Follow-up/Referrals: Ashok,Kimberly Bustos DO [Primary Care Provider, Unknown] Stand Alone Forms: Work/School Release IP
[2024-12-19 09:20] VITALS: BP 118/64; PULSE 88; RESP 16; TEMP 36.7; O2SAT 100
[2024-12-19 09:43] LABS: Hematocrit 35.3 % (37.0-47.0); Hemoglobin 11.7 g/dL (12.0-15.0); Immature Granulocyte Percent A 0.5 % (0-0.5); Lymphocytes Absolute Auto 2.32 K/mm3 (0.9-3.2); Mean Corpuscular HGB Conc 33.1 g/dl (32-36); Mean Corpuscular Hemoglobin 30.3 pg (26-34); Mean Corpuscular Volume 91.5 fl (80-100); Nucleated Red Blood Cells Absolute Auto 0.000 K/mm3 (0.0-0.012); Nucleated Red Blood Cells Perc 0.0 % (0.0-0.2); Platelet Count Result 298 k/mm3 (150-375); Red Blood Count 3.86 M/mm3 (4.2-5.4); White Blood Count 13.3 K/mm3 (4.5-10.0)
--- OUTSIDE RECORDS SUMMARY | 2024-12-19 09:45 | XMS_ITS | Clinical Summary ---
Author Organization [facility] Address [address] [place] [address] Care Team Providers Care Car Driver Name Role Phone Lucinda Rodgers DO [...] on file Legal Sex Female 8:10 PM SENIOR HUMAN RESOURCES REPRESENTATIVE Gender Identity Female 08/01/2020 9:48 AM CDT [...] Comments Blood Pressure 121/81 05/06/2024 1:15 PM SENIOR HUMAN RESOURCES REPRESENTATIVE Pulse 66 05/06/2024 1:15 PM SENIOR HUMAN RESOURCES REPRESENTATIVE Temperature 37 C (98.6 F) 01/08/2022 9:41 PM CDT Respiratory Rate 18 01/08/2022 9:41 PM CDT Oxygen Saturation 98% 01/08/2022 9:41 PM CDT Inhaled Oxygen Concentration - - Weight 61.1 kg (134 lb 12.8 oz) 05/06/2024 1:15 PM SENIOR HUMAN RESOURCES REPRESENTATIVE Height 157.5 cm (5' 2) 05/06/2024 1:15 PM SENIOR HUMAN RESOURCES REPRESENTATIVE Body Mass Index 24.66 05/06/2024 1:15 PM SENIOR HUMAN RESOURCES REPRESENTATIVE Plan of Treatment Health Maintenance Due Date [...] HEPATITIS C ANTIBODY Routine 05/06/2024 12:57 PM SENIOR HUMAN RESOURCES REPRESENTATIVE Encounter for screening for infections with predominantly sexual mode of transmission from Last 3 Months or Most Recently Relevant to Health Maintenance Results * Hepatitis C antibody Blood (05/06/2024 12:57 PM SENIOR HUMAN RESOURCES REPRESENTATIVE) Hep C Ab Nonreactive Nonreactive Comment:Antibodies to HCV no t detected. Does NOT exclude the possibility of recent exposure to HCV. Current interpretive data was last revised on 21 Blood 05/06/2024 12:5 7 PM SENIOR HUMAN RESOURCES REPRESENTATIVE 05/06/2024 2:13 PM SENIOR HUMAN RESOURCES REPRESENTATIVE Gianluca Quiroz MD LAB MICROBIOLOGY - GENERAL ORDERABLES Final Result [facility] [place] [address] from Last 3 Months or Most Recently Relevant to Health Maintenance Insurance [employer] [facility] [address] [address] [facility] Care Teams Car Driver Relationship Specialty Start Date End Date Lucinda Rodgers DO PCP - General Family Medicine 05/16/20
--- OUTSIDE RECORDS SUMMARY | 2024-12-19 09:45 | XMS_ITS | Clinical Summary ---
Author Organization [facility] Address [address] [place] [address] Care Team Providers Care Concrete Fence Builder Name Role Phone Unavailable Primary Care Provider Unavailabl e Source Comments [facility],non-owned Affiliates and Associated Physician Practices is amultiple site organization consisting of ambulatory clinics and hospital sitesin [place], [place], [place] and [place]. This disclosure is being madepursuant to the Care Everywhere program and may not contain all information available regarding this patient. Last updated 18.[facility] Active Problems Problem Noted Date Diagnosed Date Persons encountering health services in other specified circumstances 04/04/2016 Overview (07/22/2017): Records from Jose Kirkpatrick in [place] reviewed From 04/06 prob list: GC, PId, depression, HPV + Psh: right salpingectomy 2010 for ectopic Ob hx 2010 ectopic [facility] 2012 sab Another note says bilat salpingectomies Labs 03/27/16 prl 6.1, fsh 4.5, lh 114.8, tsh 1.02, DHEAS 410, hgba1c 5.1, testos 31, total [id number] 173, hdl 77, creatinine 1.01 otherwise normal cmp, hsv I and II CEILA neg x2, GC.CT. 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 Gender Identity Not on file Sexual Orientation [...] Progesterone 56.3 ng/mL 11/13/2024 12:14 PM CDT [facility] Blood BLOOD SPECIMEN / Unknown Venipuncture / Unknown 11/13/2024 8:51 AM CDT 11/13/2024 10:59 AM CDT Narrative [facility] - 11/13/2024 12:14 PM CDT Normal Menstruating Females: Follicular Phase <0.5 ng/mL Luteal Phase 1.2 - 15.9 ng/mL Postmenopausal Females: <0.5 ng/mL Females: First Trimester 2.8 - 147.3 ng/mL Second Trimester 22.5 - 95.3 ng/mL Third Trimester 27.9 - 242.5 ng/mL Males: <0.5 ng/mL Shilpa Castanon MD LAB - CHEMISTRY ORDERABLES Fi nal Result Performing Organization Address [facility]/ZIP Co de Phone Number [facility] [address] [place] [address] * HCG BETA BLOOD QUANTITATIVE (11/13/2024 8:51 AM CDT) [facility] hCG Quantitative 626.17 mIU/mL 11/14/19 12:14 PM CDT [facility] Blood BLOOD SPECIMEN / Unknown Venipuncture / Unknown 11/13/2024 8:51 AM CDT 11/13/2024 10:59 AM CDT Narrative [facility] - 11/13/2024 12:14 PM CDT [...] ORDERABLES Fi nal Result Performing Organization Address City[facility]/ZIP Co de Phone Number [facility] [address] [place] [address] from Last 3 Months Insurance [facility]
--- OUTSIDE RECORDS SUMMARY | 2024-12-19 09:45 | XMS_ITS | Encounter Summary ---
Author Organization [facility] Address [address] [place] [address] Care Team Providers Care Special Machine Operator Name Role Phone Unavailable Primary Care Provider Unavailabl e Encounter Details Date Type Department Care Team (Late st Contact Info) Description 11/13/2024 Lab Requisition [facility] [address] [place] [address] Shilpa Castanon MD [address] 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 Gender Identity Not on file Sexual Orientation [...] Quantitative 626.17 mIU/mL 11/14/19 12:14 PM CDT [facility] Blood BLOOD SPECIMEN / Unknown Venipuncture / Unknown 11/13/2024 8:51 AM CDT 11/13/2024 10:59 AM CDT Narrative [facility] - 11/13/2024 12:14 PM CDT [...] ORDERABLES Fi nal Result Performing Organization Address [facility] de Phone Number [facility] [address] [place], [place] [id number] * PROGESTERONE (11/13/2024 8:51 AM CDT) [facility] Progesterone 56.3 ng/mL 11/13/2024 12:14 PM CDT [facility] Blood BLOOD SPECIMEN / Unknown Venipuncture / Unknown 11/13/2024 8:51 AM CDT 11/13/2024 10:59 AM CDT Narrative [facility] - 11/13/2024 12:14 PM CDT Normal Menstruating Females: Follicular Phase <0.5 ng/mL Luteal Phase 1.2 - 15.9 ng/mL Postmenopausal Females: <0.5 ng/mL Females: First Trimester 2.8 - 147.3 ng/mL Second Trimester 22.5 - 95.3 ng/mL Third Trimester 27.9 - 242.5 ng/mL Males: <0.5 ng/mL Shilpa Castanon MD LAB - CHEMISTRY ORDERABLES Fi nal Result Performing Organization Address [facility] de Phone Number [facility] [address] [place] [phone] documented in this encounter Visit Diagnoses Diagnosis Encounter for test, result unknown documented in this encounter
[2024-12-19 09:54] LABS: INR 0.9; Prothrombin Time 12.8 Seconds (11.1-14.7)
[2024-12-19 09:55] LABS: Partial Thromboplastin Time 27.9 Seconds (22.3-36.8)
[2024-12-19 10:09] LABS: Alanine Aminotransferase 19 U/L (6-35); Albumin Level 4.0 g/dL (3.5-5.1); Alkaline Phosphatase 53 U/L (38-126); Anion Gap 7 mmol/L (4-12); Aspartate Amino Transferase 43 U/L (14-36); Bilirubin,Total 0.3 mg/dL (0.2-1.3); Blood Urea Nitrogen 9 mg/dL (7-17); Calcium 9.6 mg/dL (8.4-10.2); Carbon Dioxide 22 mmol/L (22-30); Chloride 102 mmol/L (98-107); Estimated CRCL calculation 70 ml/min; Estimated Glomerular Filt Rate > 60; Glucose 90 mg/dL (65-110); Potassium 4.1 mmol/L (3.4-5.0); Sodium 131 mmol/L (137-145); Total Protein 7.4 g/dL (6.3-8.2)
[2024-12-19 10:10] LABS: Add Urine Microscopic? YES; Appearance Urine Cloudy (Clear); Glucose Urine UA Negative (Negative); Leukocyte Esterase Ur Trace LEU/UL (Negative); Need Manual Microscopic Reviewed; Nitrate Urine Negative (Negative); Non Pathogenic Casts 0-2; Specific Grav Ur 1.013 (1.001-1.035)
[2024-12-19] MEDS: LACTATED RINGERS 1,000 ML 999 ML IV CONT (10:21)
[2024-12-19 10:50] LABS: Beta HCG Quantitative 220760.00 mIU/ML
[2024-12-19] MEDS: NITROFURANTOIN MONOHYD MACROCR 100 MG CAP PO (11:24)
[2024-12-19 13:05] VITALS: BP 110/70; PULSE 77; RESP 16; O2SAT 100
== END 2024-12-19 13:10 | disposition home or self-care (01) ==
PROVIDERS: Emergency Provider Emergency Medicine; PCP Family Medicine
DX: O23.41 Unspecified infection of urinary tract in pregnancy, first trimester (principal); N39.0 Urinary tract infection, site not specified; O09.511 Supervision of elderly primigravida, first trimester; O99.281 Endocrine, nutritional and metabolic diseases complicating pregnancy, first trimester; E55.9 Vitamin D deficiency, unspecified; Z87.891 Personal history of nicotine dependence; Z90.79 Acquired absence of other genital organ(s); Z3A.10 10 weeks gestation of pregnancy
CPT/HCPCS: 36415; 76801; 76817; 80053; 81001; 84702; 85025; 85610; 85730; 86850; 86900; 86901; 87086; 87491; 87591; 96360; 99284; A9270; J7120

== ENCOUNTER 2025-02-10 11:07 | Outpatient (CLI) | payer OTHER, SELFPAY ==
--- OUTSIDE RECORDS SUMMARY | 2025-02-10 08:57 | XMS_ITS | Encounter Summary ---
Author Organization [facility] Address [address] [place] [address] Care Team Providers Care Nursing Consultant Name Role Phone Unavailable Primary Care Provider Unavailabl e Reason for Referral * (Routine) - Open Specialty Diagnoses / Procedures Referred By Chiquita colón Referred To Contact Diagnoses resulting from in vitro fertilization in second trimester (HCC) History of loop electrosurgical excision procedure (LEEP) of cervix affecting in second trimester (HCC) Multigravida of advanced maternal age in second trimester (HCC) Procedures Sonogram - Complete Byron Li MD [address] [place] [address] [address] [place] [address] Phone: tel: fax: Referral ID Status Reason Start Date Expiration Date Visits Re quested Visits Authorized [id number] Open 12/29/2024 12/29/2025 3 3 Reason for Visit * (Routine) - Open Specialty Diagnoses / Procedures Referred By Chiquita colón Referred To Contact Diagnoses resulting from in vitro fertilization in second trimester (HCC) History of loop electrosurgical excision procedure (LEEP) of cervix affecting in second trimester (HCC) Multigravida of advanced maternal age in second trimester ([facility]) Procedures Sonogram - Complete Byron Li MD [address] [facility] [address] [place] [address] Phone: tel: fax: Referral ID Status Reason Start Date Expiration Date Visits Re quested Visits Authorized [id number] Open 12/29/2024 12/29/2025 3 3 Encounter Details Date Type Department Care Team (Late st Contact Info) Description 02/10/2025 8:57 AM CDT Hospital Encounter [facility] Maternal & Care [address] [place] [id number] Leigh Sidhu MD [address] [facility] [address] [place] [address] Social History Tobacco Use Types Packs/Day Years Used Date Smoking Tobacco: Former Cigarettes 0.3 20.1 0 04/22/2004 - 05/23/2024 Smokeless Tobacco: Never Alcohol Use Standard Drinks/Week Comments Not Currently 0 (1 standard drink = 0.6 oz pur e alcohol) Estimated Date of Delivery Comme nts Yes 07/19/2025 Based on Ultraso und Sex and Gender Information Value Date Recorded Sex Assigned at Not on file Legal Sex Female 5:45 PM CREEL CLEANER Gender Identity Not on file Sexual Orientation Not on file documented as of this encounter Plan of Treatment Upcoming Encounters Date Type Department Care Team (Late st Contact Info) Description 03/01/2025 10:30 AM CREEL CLEANER Appointment [facility] Maternal & Care [address] [place] [address] 03/10/2025 1:45 PM CREEL CLEANER Appointment [facility] Maternal & Care [address] [place] [phone] documented as of this encounter Procedures Procedure Name Priority Date/Time Associated Diagnosis Comments SONOGRAM - COMPLETE Routine 02/10/2025 9:08 AM CDT resulting from in vitro fertilization in second trimester (HCC) History of loop electrosurgical excision procedure (LEEP) of cervix affecting in second trimester (HCC) Multigravida of advanced maternal age in second trimester (HCC) documented in this encounter Results * Sonogram - Complete (02/10/2025 9:08 AM CDT) Linked Results Indication ======== Supervision of IVF History of LEEP Advanced maternal age (AMA), multigravida History of ectopic , currently History ====== OB History 3. Para 0 T0 1. ectopic 2011. Details: salpingectomy 2. ectopic 2014. Details: salpingectomy Lab Tests Test Date Result NIPT Low risk, Male Maternal Assessment Physical Exam Height 157 cm, 5 ft 2 in. Weight 67 kg, 147 lb. Initial weight 64 kg, 141 lb. BMI 26.89 kg/m . Initial BMI 25.79 kg/m . Weight gain 3 kg, 6 lb Method ====== Transabdominal and transvaginal ultrasound. View: Sufficient ========= Jules . Number of fetuses: 1 Dating ====== Date Details Gest. age NO Stated NO 17 w + 0 d 07/21/2025 U/S 02/10/2025 based upon AC, BPD, Femur, HC 17 w + 0 d 07/21/2025 Assigned dating based on stated NO, selected on 02/10/2025 17 w + 0 d 07/21/2025 General Evaluation Cardiac activity present. FHR 137 bpm. Presentation: variable Placenta: Placental site: anterior. No previa seen Umbilical cord: Cord vessels: 3 vessel cord. Insertion site: normal insertion Amniotic fluid: Amount of AF: normal. MVP 4.1 cm Biometry BPD 36.7 mm 17w 2d 60% Hadlock HC 134.4 mm 17w 0d 36% Hadlock Cerebellum tr 17.6 mm 90% [place] Nuchal fold 2.1 mm AC 111.2 mm 17w 0d 48% Hadlock Femur 22.2 mm 16w 5d 31% Hadlock Humerus 21.9 mm 16w 5d 48% Izabella HC / AC 1.21 15w 3d 61% Hadlock Weight Calculation: EFW 171 g 34% Hadlock EFW (lb,oz) 0 lb 6 oz EFW by Hadlock ([id number]) appropriate Growth Overview Exam date GA BPD (mm) HC (mm) AC (mm) FL (mm) HL (mm) EFW (g) 02/10/2025 17w 0d 36.7 60% 134.4 36% 111.2 48% 22.2 31% 21.9 48% 171 34% Anatomy The following structures appear normal: Head / Neck Cranium. Choroid plexus. Cerebellum. Cisterna magna. Heart / Thorax 4-chamber view. Abdomen Cord insertion. Stomach. Kidneys. Bladder. Genitals. Extremities / Skeleton Arms. Legs. sex: male. Maternal Structures Cervix reassuring Approach - Transvaginal: Cervical length 3.80 cm Right Ovary Not visualized Appearance: Adnexa appears normal Left Ovary Not visualized Appearance: Adnexa appears normal Impression ========= Single live intrauterine at 17w 0d The size is appropriate. The amniotic fluid volume is normal. The transvaginal cervical length is reassuring. No major malformations were seen within the limitations of ultrasound. Follow-up ======== Follow up in 4 weeks, for detailed anatomic survey and cervical length surveillance. See separate [facility] visit note. Coding ====== Diagnoses O09.12: Supervision of with history of ectopic O09.522: Supervision of elderly multigravida O34.42: Maternal care for other abnormalities of cervix O09.812: Supervision of resulting from assisted reproductive technology Procedures 46507: US Preg Uterus >14 weeks [address]959: US Preg Uterus Transvaginal [facility] [employer] PACS Anatomical Region Laterality Modality Other 02/10/2025 9:08 AM CDT Byron Li MD [facility] ORDERABLES Edited Result - Final documented in this encounter Visit Diagnoses Diagnosis Encounter for anatomic survey (HCC)- Primary Encounter for anatomic survey resulting from in vitro fertilization in second trimester (HCC) History of loop electrosurgical excision procedure (LEEP) of cervix affecting in second trimester (HCC) Multigravida of advanced maternal age in second trimester (HCC) Advanced maternal age in multigravida, second trimester (HCC) documented in this encounter
--- OUTSIDE RECORDS SUMMARY | 2025-02-10 08:58 | XMS_ITS | Encounter Summary ---
Author Organization [facility] Address [address] [place] [address] Care Team Providers Care Fluid Jet Cutter Operator Name Role Phone Unavailable Primary Care Provider Unavailabl e Reason for Visit * Reason Comments Ultrasound Follow-up Maternal Medicine Encounter Details Date Type Department Care Team (Late st Contact Info) Description 02/10/2025 8:58 AM CDT Hospital Encounter [facility] Maternal & Care [address] [place] [address] Leigh Sidhu MD [address] [facility] [address] [place] [address] Social History Tobacco Use Types Packs/Day Years [...] on file Legal Sex Female 5:45 PM DISPATCHER SERVICE OR WORK Gender Identity Not on file Sexual Orientation Not on file documented as of this encounter Last Filed Vital Signs Vital Sign Reading Time Taken Comments Blood Pressure 103/69 02/10/2025 9:41 AM CDT Pulse 76 02/10/2025 9:41 AM CDT Temperature - - Respiratory Rate - - Oxygen Saturation - - Inhaled Oxygen Concentration - - Weight 66.7 kg (147 lb) 02/10/2025 9:41 AM CDT Height 157.5 cm (5' 2) 02/10/2025 9:41 AM CDT Body Mass Index 26.89 02/10/2025 9:41 AM CDT documented in this encounter Progress Notes * Lacy Clements RN - 02/10/2025 10:33 AM CDT Pt here today for ultrasound and new MFM consult for IVF and AMA. She reports feeling good movement. Denies cramping/bleeding/leakage of fluid. Denies headaches, visual changes, edema, and epigastric pain. Denies pain or urinary s/s. Urine dip- 1+ ketones, 1+protein, trace blood. Pt has a history of Ectopic x 2 with BL salpingectomy. She has also has a LEEP procedure in April of this year. Pt is AMA in her . Pre-implantation genetic completed and were negative. No genetic abnormalities on her side or FOB's side of their families. Lab requisition given for CMP, UA w/ culture. Encouraged pt to complete at her earliest convenience. Pt having done at [facility]. ASA 162 mg daily e-prescribed to pt's preferred pharmacy. Pt was seen by Dr. Sidhu for MFM consult. Please see her note for further POC. She will follow up in 4 weeks for US/OPTICAL ADVISOR. documented in this encounter Plan of Treatment Upcoming Encounters Date Type Department Care Team (Late st Contact Info) Description 03/01/2025 10:30 AM DISPATCHER SERVICE OR WORK Appointment [facility] Maternal & Care [address] [place] [address] 03/10/2025 1:45 PM DISPATCHER SERVICE OR WORK Appointment [facility] Maternal & Care [address] [place] [address] Scheduled Orders Name Type Priority Associated Diagnoses Orde r Schedule COMPREHENSIVE METABOLIC PANEL Lab Routine resulting from in vitro fertilization in second trimester (HCC) Multigravida of advanced maternal age in second trimester (HCC) 1 Occurrences starting 02/10/2025 until 02/05/2026 URINALYSIS REFLEX MICROSCOPIC REFLEX CULTURE Lab Routine Abnormal urine finding 1 Occurrences starting 02/10/2025 until 02/05/2026 documented as of this encounter Visit Diagnoses Diagnosis resulting from in vitro fertilization in second trimester ([facility])- Primary History of loop electrosurgical excision procedure (LEEP) of cervix affecting in second trimester ([facility]) Multigravida of advanced maternal age in second trimester ([facility]) Encounter for anatomic survey ([facility]) Encounter for anatomic survey Abnormal urine finding Other nonspecific finding on examination of urine documented in this encounter
[2025-02-10 11:46] LABS: Add Urine Microscopic? NO; Appearance Urine Clear (Clear); Glucose Urine UA Negative (Negative); Leukocyte Esterase Ur Negative LEU/UL (Negative); Nitrate Urine Negative (Negative); Specific Grav Ur 1.003 (1.001-1.035)
[2025-02-10 12:09] LABS: Hematocrit 35.0 % (37.0-47.0); Hemoglobin 11.2 g/dL (12.0-15.0); Mean Corpuscular HGB Conc 32.0 g/dl (32-36); Mean Corpuscular Hemoglobin 30.3 pg (26-34); Mean Corpuscular Volume 94.6 fl (80-100); Platelet Count Result 272 k/mm3 (150-375); Red Blood Count 3.70 M/mm3 (4.2-5.4); White Blood Count 11.3 K/mm3 (4.5-10.0)
[2025-02-10 12:32] LABS: Alanine Aminotransferase 27 U/L (6-35); Albumin Level 3.7 g/dL (3.5-5.1); Alkaline Phosphatase 56 U/L (38-126); Anion Gap 6 mmol/L (4-12); Aspartate Amino Transferase 34 U/L (14-36); Bilirubin,Total 0.3 mg/dL (0.2-1.3); Blood Urea Nitrogen 7 mg/dL (7-17); Calcium 9.2 mg/dL (8.4-10.2); Carbon Dioxide 22 mmol/L (22-30); Chloride 104 mmol/L (98-107); Estimated Glomerular Filt Rate > 60; Glucose 76 mg/dL (65-110); Potassium 3.8 mmol/L (3.4-5.0); Sodium 132 mmol/L (137-145); Total Protein 6.7 g/dL (6.3-8.2)
[2025-02-10 12:59] LABS: Syphilis IgG/IgM Antibody Non-Reactive (Nonreactive)
[2025-02-10 13:03] LABS: Hepatitis B Surface Antigen Negative (Negative)
[2025-02-10 13:11] LABS: HIV 1/2 Ab P24 Ag Result Negative (Negative)
--- OUTSIDE RECORDS SUMMARY | 2025-02-10 14:14 | XMS_ITS | Encounter Summary ---
Author Organization [facility] Address [address] [place] [address] Care Team Providers Care Mineral Surveyor Name Role Phone Unavailable Primary Care Provider Unavailabl e Encounter Details Date Type Department Care Team (Late st Contact Info) Description 11/13/2024 Lab Requisition [facility] [address] [place] [address] Shilpa Castanon MD [address] [facility] [address] [place] [address] Encounter for test, result unknown Social History Tobacco Use Types Packs/Day Years Used Date Smoking Tobacco: Never Assessed Comments Unknown Sex and Gender Information Value Date Recorded Sex Assigned at Not on file Legal Sex Female 5:45 PM INFORMATICS ANALYST Gender Identity Not on file Sexual Orientation Not on file documented as of this encounter Plan of Treatment Upcoming Encounters Date Type Department Care Team (Late st Contact Info) Description 03/01/2025 10:30 AM INFORMATICS ANALYST Appointment [facility] Maternal & Care [address] [place] [phone] 03/10/2025 1:45 PM INFORMATICS ANALYST Appointment [facility] [address] [place] [phone] documented as of this encounter Procedures Procedure Name Priority Date/Time Associated Diagnosis Comments PROGESTERONE STAT 11/13/2024 8:51 AM CDT Encounter for test, result unknown HCG BETA BLOOD QUANTITATIVE STAT 11/13/2024 8:51 AM CDT Encounter for test, result unknown documented in this encounter Results * HCG BETA BLOOD QUANTITATIVE (11/13/2024 8:51 AM CDT) Pathologist [facility] hCG Quantitative 626.17 mIU/mL 11/14/19 12:14 PM CDT [facility] Blood BLOOD SPECIMEN / Unknown Venipuncture / Unknown 11/13/2024 8:51 AM CDT 11/13/2024 10:59 AM CDT [facility] - 11/13/2024 12:14 PM CDT hCG [...] Shilpa Castanon MD LAB - CHEMISTRY ORDERABLES [facility] Result [facility] [address] [place] [address] * PROGESTERONE (11/13/2024 8:51 AM CDT) Pathologist [facility] Progesterone 56.3 ng/mL 11/13/2024 12:14 PM CDT [facility] Blood BLOOD SPECIMEN / Unknown Venipuncture / Unknown 11/13/2024 8:51 AM CDT 11/13/2024 10:59 AM CDT [facility] - 11/13/2024 12:14 PM CDT Normal Menstruating Females: Follicular Phase <0.5 ng/mL Luteal Phase 1.2 - 15.9 ng/mL Postmenopausal Females: <0.5 ng/mL Females: First Trimester 2.8 - 147.3 ng/mL Second Trimester 22.5 - 95.3 ng/mL Third Trimester 27.9 - 242.5 ng/mL Males: <0.5 ng/mL us Shilpa Castanon MD LAB - CHEMISTRY ORDERABLES [facility] Result [facility] [address] [place] [phone] documented in this encounter Visit Diagnoses Diagnosis Encounter for test, result unknown documented in this encounter
--- OUTSIDE RECORDS SUMMARY | 2025-02-10 14:14 | XMS_ITS | Clinical Summary ---
Author Organization [facility] [employer] Address [address] [facility] [place] [address] Care Team Providers Care Trackless Trolley Driver Name Role Phone Unavailable Primary Care Provider Unavailabl e Source Comments [facility] [employer],non-owned Affiliates and Associated Physician Practices is amultiple site organization consisting of ambulatory clinics and hospital sitesin [place], [place], [place] and [place]. This disclosure is being madepursuant to the Care Everywhere program and may not contain all information available regarding this patient. Last updated 18.[facility] [employer] Allergies No known active allergies Medications * Be aware that medications may not be up to date on this document. Alwaysverify current medications with the patient. Vit-DSS-Fe Fum-FA ( vitamin with iron) tabletIndicatio ns: Take 1 (one) tablet by mouth once daily Reasons: Active Doxylamine Succinate, Sleep, (UNISOM PO) Take 1 tablet by mouth nightly as needed (as needed for nausea/insomni a) Active aspirin (Aspirin) 81 MG chew tabletIndicatio ns:Preeclampsia Take 2 (two) tablets by mouth once daily (chew and swallow) Reasons: Increased Blood Pressure and Edema During 180 tablet 1 5 07/20/19 26 Active Active Problems Problem Noted Date Diagnosed Date Persons encountering health services in other specified circumstances 04/04/2016 Overview (07/22/2017): Records from [facility] in [place] reviewed From 04/06 prob list: GC, PId, depression, HPV + Psh: right salpingectomy 2010 for ectopic Ob hx 2010 ectopic [facility] 2011 sab Another note says bilat salpingectomies Labs 12/6/16 prl 6.1, fsh 4.5, lh 114.8, tsh 1.02, DHEAS 410, hgba1c 5.1, testos 31, total hjijseizm1ug 173, hdl 77, creatinine 1.01 otherwise normal cmp, hsv I and II CELIA neg x2, GC.CT. Trich neg x3, Estimated Date of Delivery Comme nts Yes 07/19/2025 Based on Ultraso und Encounters Date Type Department Care Team Description 02/10/2025 8:58 AM CDT Hospital Encounter [facility] [address] [place] [address] Leigh Sidhu MD 02/10/2025 8:57 AM CDT Hospital Encounter [facility] [address] [place] [address] Leigh Sidhu MD 01/08/2025 11:05 AM CDT - 01/08/2025 11:59 PM CDT Hospital Encounter [facility] [address] [place] [phone] Rosales Davis MD Discharge Disposition: Home or Self Care 11/13/2024 Lab Requisition [facility] [address] [place] [address] Shilpa Castanon MD Encounter for test, result unknown from Last 3 Months Family History Medical History Relation Name Comments CAD (Coronary Artery Disease) Father Diabetes - Type 2 Father Cancer - Other Maternal Grandfather Cancer - Cervical Mother Hypertension Mother Relation Name Status Comments Father Maternal Grandfather Maternal Grandmother Mother Paternal Grandfather [...] on file Legal Sex Female 5:45 PM OPERATING SYSTEM DESIGNER Gender Identity Not on file Sexual Orientation Not on file Last Filed [...] Mass Index 26.89 02/10/2025 9:41 AM CDT Plan of Treatment Upcoming Encounters Date Type Department Care Team (Late st Contact Info) Description 03/01/2025 10:30 AM OPERATING SYSTEM DESIGNER Appointment [facility] [address] [place] [address] 03/10/2025 1:45 PM OPERATING SYSTEM DESIGNER Appointment [facility] [address] [place] [address] Health Maintenance Due Date Last Done Comments HIV SCREENING 2002 HEPATITIS C SCREENING 05/19/2005 DTAP/TDAP/TD VACCINES (1 - Tdap) 2006 HEPATITIS B VACCINE (1 of 3 - 19+ 3-dose series) 2006 PAP SMEAR 2008 HPV VACCINE (1 - 3-dose SCDM series) 2014 DEPRESSION SCREENING 04/22/2024 COVID-19 VACCINE (2 - 2024-2 6 season) 2024 04/10/2021 INFLUENZA VACCINE (#1) 2024 1, 09/22/2014 ZOSTER VACCINE (1 of 2) 2037 HIB VACCINE Aged Out No longer eligi ble based on patient's age to complete this topic MENINGOCOCCAL (Group B) VACCINE SHARED DECISION-MAKING Aged Out No longer eligible based on patient's age to complete this topic MENINGOCOCCAL GROUPS A/C/Y/W VACCINE Aged Out No longer eligible b ased on patient's age to complete this topic PNEUMOCOCCAL VACCINE Aged Out No long er eligible based on patient's age to complete this topic Respiratory Syncytial Virus (RSV) Vaccine Pt: or over 60 yrs (No Doses Required) Completed Procedures Procedure Name Priority Date/Time Associated Diagnosis Comments SONOGRAM - COMPLETE Routine 02/10/2025 9 :08 AM CDT resulting from in vitro fertilization in second trimester ([facility]) History of loop electrosurgical excision procedure (LEEP) of cervix affecting in second trimester ([facility]) Multigravida of advanced maternal age in second trimester ([facility]) SONOGRAM - COMPLETE Routine 01/08/2025 1 1:40 AM CDT resulting from in vitro fertilization in second trimester ([facility]) History of loop electrosurgical excision procedure (LEEP) of cervix affecting in second trimester ([facility]) Multigravida of advanced maternal age in second trimester ([facility]) HCG BETA BLOOD QUANTITATIVE STAT 11/13/2024 8:51 AM CDT Encounter for test, result unknown PROGESTERONE STAT 11/13/2024 8:51 AM CDT Encounter for test, result unknown from Last 3 Months Results * Sonogram - Complete (02/10/2025 9:08 AM CDT) Only the most recent of2 resultswithin the time period is included. Linked Results Indication ======== Supervision of IVF [...] 0 lb 6 oz EFW by Hadlock ([id number]) appropriate Growth Overview Exam date [place] BPD [...] survey and cervical length surveillance. See separate [facility] visit note. Coding ====== Diagnoses O09.12: Supervision of with history of ectopic O09.522: Supervision of elderly multigravida O34.42: Maternal care for other abnormalities of cervix O09.812: Supervision of resulting from assisted reproductive technology Procedures 01685: US Preg Uterus >14 weeks 25756: US Preg Uterus Transvaginal [employer] PACS Anatomical Region Laterality Modality Other 02/10/2025 9:08 AM CDT Bryon Li MD [facility] ORDERABLES Edited Result - Final * PROGESTERONE (11/13/2024 8:51 AM CDT) [facility] [address] Progesterone 56.3 ng/mL 11/13/2024 12:14 PM CDT [facility] Blood BLOOD SPECIMEN / Unknown Venipuncture / Unknown 11/13/2024 8:51 AM CDT 11/13/2024 10:59 AM CDT Narrative [facility] - 11/13/2024 12:14 PM CDT Normal Menstruating Females: Follicular Phase <0.5 ng/mL Luteal Phase 1.2 - 15.9 ng/mL Postmenopausal Females: <0.5 ng/mL Females: First Trimester 2.8 - 147.3 ng/mL Second Trimester 22.5 - 95.3 ng/mL Third Trimester 27.9 - 242.5 ng/mL Males: <0.5 ng/mL Shilpa Castanon MD LAB - CHEMISTRY ORDERABLES Fi nal Result [facility] [address] [place] [address] * HCG BETA BLOOD QUANTITATIVE (11/13/2024 8:51 AM CDT) hCG Quantitative 626.17 mIU/mL 11/14/19 12:14 PM CDT [facility] Blood BLOOD SPECIMEN / Unknown Venipuncture / Unknown 11/13/2024 8:51 AM CDT 11/13/2024 10:59 AM CDT Narrative [facility] - 11/13/2024 12:14 PM CDT [...] ORDERABLES Fi nal Result Performing Organization Address [facility] de Phone Number [facility] [address] [place] [address] from Last 3 Months Insurance [facility]
--- OUTSIDE RECORDS SUMMARY | 2025-02-10 14:14 | XMS_ITS | Patient Health Record ---
Author Organization [facility] Address [address] [place] [address] Care Team Providers Care Technical Designer Name Role Phone Lacy Alicia Primary Care Provider [phone] Allergies No Known Allergies Reason For Referral No Information Medications Medication [...] 12/25/2023 Active Vitamin D (Ergocalciferol) 1.25 MG (88328 UT) TAKE 1 CAPSULE BY MOUTH 1 [...] Status Risk Notes Problem Vitamin D deficiency (66872544) Vitamin D deficiency, unspecified (E55.9) Active confirmed Problem Tobacco user (653880755) Nicotine dependence, unspecified, uncomplicated (F17.200) Active confirmed Problem Abnormal uterine bleeding (16325886057263) Abnormal uterine and vaginal bleeding, unspecified (N93.9) Active confirmed Problem Gastroesophageal reflux disease (881807959) GERD (gastroesophagea l reflux disease) (K21.9) Active confirmed Problem Vitamin D deficiency (32365593) Vitamin D deficiency (E55.9) Active confirmed Problem (52424252) (Z33.1) Active confirmed Problem Impacted cerumen of both ears (6053672070641236) Impacted cerumen of both ears (H61.23) Active confirmed Problem Migraine without aura, not refractory (560544068) Migraine without aura and without status migrainosus, not intractable (G43.009) Active confirmed Problem Family planning (781780546) Family planning (Z30.09) Active confirmed Problem Tobacco use (777077392) Tobacco use disorder (F17.200) Active confirmed Problem Right tubal without intrauterine (O00.101) Active confirmed Problem Left tubal with intrauterine (O00.112) Active confirmed Problem Seasonal allergic rhinitis (343363391) Seasonal allergic rhinitis, unspecified trigger (J30.2) Active confirmed Plan Of Treatment No Information Insurance Providers Payer Name Payer Address Payer Phone Subscriber Number Group Number Insured Name Patient Relationship to Insured Coverage Start Date Coverage End Date [facility] Plan [address] [place] [address] [id number] Geena Preston Self - patient is the insured 3 4 [facility] [address] [place] [address] [phone] [id number] Geena Preston Self - patient is the insured 4 [facility] [address] [place] [address] [id number] Geena Preston Self - patient is the insured 3 3 [facility] [address] [address] [place] [address] [id number] Geena Preston Self - patient is the insured 3 3 [facility] Attn Claims Department [address] [place] [address] [phone] [id number] Geena Preston Self - patient is the insured 1 3 Medical (General) History Medical History History ICD Code Right tubal without intrauteri ne O00.101 Left tubal with intrauterine p regnancy O00.112 Surgical History Surgery Date(Month/Year) L ankle pins Hospitalization History Reason Date(Month/Year)
--- OUTSIDE RECORDS SUMMARY | 2025-02-10 14:14 | XMS_ITS | Clinical Summary ---
Author Organization [facility] Address [address] [place] [address] Care Team Providers Care Rock Wool Insulator Name Role Phone Lucinda Rodgers DO Primary [...] on file Legal Sex Female 8:10 PM LUMBER TALLIER Gender Identity Female 08/01/2020 9:48 AM CDT [...] Comments Blood Pressure 121/81 05/06/2024 1:15 PM LUMBER TALLIER Pulse 66 05/06/2024 1:15 PM LUMBER TALLIER Temperature 37 C (98.6 F) 01/08/2022 9:41 PM CDT Respiratory Rate 18 01/08/2022 9:41 PM CDT Oxygen Saturation 98% 01/08/2022 9:41 PM CDT Inhaled Oxygen Concentration - - Weight 61.1 kg (134 lb 12.8 oz) 05/06/2024 1:15 PM LUMBER TALLIER Height 157.5 cm (5' 2) 05/06/2024 1:15 PM LUMBER TALLIER Body Mass Index 24.66 05/06/2024 1:15 PM LUMBER TALLIER Plan of Treatment Health Maintenance Due Date Last Done Comments Cervical Cancer Screening 1987 Depression Screening 1987 DTaP/Tdap/Td Vaccine (1 - Tdap) 1998 Varicella Vaccines (1 of 2 - 13+ 2-dose series) 2000 Hepatitis B Screening 2005 Regular Well Visit/Exam 18-64 2005 Covid-19 Vaccine (2 - 2024-2 6 season) 2024 04/10/2021 Influenza Vaccine (#1) 2024 , 09/22/2014 HPV Vaccines Completed 07/21/2021, 07/24/2019, 05/14/2019 Hepatitis C Screening Completed 05/06/2024 Pneumococcal vaccine <65 Aged Out No longer eligible based on patient's age to complete this topic Procedures Procedure Name Priority Date/Time Associated Diagnosis Comments HEPATITIS C ANTIBODY Routine 05/06/2024 12:57 PM LUMBER TALLIER Encounter for screening for infections with predominantly sexual mode of transmission from Last 3 Months or Most Recently Relevant to Health Maintenance Results * Hepatitis C antibody Blood (05/06/2024 12:57 PM LUMBER TALLIER) Hep C Ab Nonreactive Nonreactive Comment:Antibodies to HCV no t detected. Does NOT exclude the possibility of recent exposure to HCV. Current interpretive data was last revised on 21 Blood 05/06/2024 12:5 7 PM LUMBER TALLIER 05/06/2024 2:13 PM LUMBER TALLIER Gianluca Quiroz MD LAB MICROBIOLOGY - GENERAL ORDERABLES Final Result [facility] Department [place] [address] from Last 3 Months or Most Recently Relevant to Health Maintenance Insurance [employer] [facility] [place] [address] [facility] Care Teams Rock Wool Insulator Relationship Specialty Start Date End Date Lucinda Rodgers DO PCP - General Family Medicine 05/16/20
[2025-02-10 15:34] LABS: Beta HCG Quantitative 18665.00 mIU/ML
[2025-02-11 07:09] LABS: Cytomegalovirus (CMV) Ab, IgG >10.00 U/mL (0.00-0.59); Varicella-Zoster Ab, IgG Reactive (Non Reactive)
[2025-02-15 13:09] LABS: Parvovirus B19, IgG 3.8 index (0.0-0.8); Parvovirus B19, IgM 0.1 index (0.0-0.8)
== END 2025-02-10 11:08 | disposition home or self-care (01) ==
LOC: ANHLAB 11:08
PROVIDERS: PCP Family Medicine; Referring Provider Obstetrics & Gynecology; Visit Provider Student in an Organized Health Care Education/Training Program
DX: O09.812 Supervision of pregnancy resulting from assisted reproductive technology, second trimester (principal); O09.522 Supervision of elderly multigravida, second trimester; Z3A.00 Weeks of gestation of pregnancy not specified
CPT/HCPCS: 36415; 80053; 81003; 84702; 85027; 85660; 86593; 86644; 86703; 86747; 86762; 86787; 86850; 86900; 86901; 87086; 87340; G0432

== ENCOUNTER 2025-02-28 06:54 | Emergency (ER) | payer OTHER, SELFPAY ==
--- OUTSIDE RECORDS SUMMARY | 2025-02-28 06:58 | XMS_ITS | Clinical Summary ---
Author Organization [facility] Address [address] [place] [address] Care Team Providers Care Mold Loft Worker Name Role Phone Krista Mullen NP Primary Care Provider [phone] Allergies No known active allergies Medications VITAMINS [...] 12:40 PM CDT): Requesting records from patient's TEMPLATE MAKER Dr. Byron Li MD. Assessment & Plan (06/16/2024 1:49 PM ENGINEERING MODEL MAKER): Requesting records from patient's TEMPLATE MAKER Dr. Byron Li MD. History of ectopic 06/16/2024 Overview (06/16/2024): Initial visit: She reports she has had two ectopic pregnancies in the past. First in 2011 and second in 2015. Status post loop electrosurg ical excision procedure (LEEP) of cervix 06/16/2024 Overview (06/16/2024): Initial visit 06/16/2024: She had LEEP procedure 05/22/[address] Byron Li MD and results showed no residual/recurrent squamous intraepithelial lesion. She reports she was told to follow-up in 1 year. Assessment & Plan (06/16/2024 1:56 PM ENGINEERING MODEL MAKER): Is to follow-up for repeat Pap in [...] taking daily multivitamin and can take additional [id number] vitamin D3 supplementation 1000- 2000 IU daily. Assessment & Plan (06/16/2024 1:47 PM ENGINEERING MODEL MAKER): Vitamin D levels ordered. Family history of cervical cancer 06/16/2024 Overview (06/16/2024): Initial visit 06/16/2024: She reports her mother had cervical cancer that spread into her pelvis and abdomen. Family history of coronary artery disease in fat her 06/16/2024 Overview (06/16/2024): Initial visit 06/16/2024: Patient's father from [place] at young age less than 50. Need [...] 07/14/2024 Assessment & Plan (06/16/2024 1:55 PM ENGINEERING MODEL MAKER): I recommend patient participate in hepatitis B [...] is initiating treatment with fertility specialist through [facility] this year and hoping to do IVF. Assessment & Plan (07/07/2024 12:40 PM CDT): She reports she has a virtual consultation appointment this afternoon with fertility specialist Encounters Date Type Department Care Team Description 12/19/2024 Scan HEALTH INFO SRVCS Scanned, Doc Med Group Ultrasound (SCAN) from Last 3 Months Immunizations Immunization Administration Dates Next Due Hepatitis B (Recombivax Hb 10 Mcg) 06/16/2024 Family History Medical History Relation Comments No Known Problems Brother Coronary artery disease Father CT Pancreatic cancer Maternal Aunt Cancer Maternal Grandfather [...] Sex Assigned at Female 06/16/2024 10:22 AM ENGINEERING MODEL MAKER Legal Sex Female 10:43 AM ENGINEERING MODEL MAKER Gender Identity Female 06/16/2024 10:22 AM ENGINEERING MODEL MAKER Sexual Orientation Not on file Last Filed [...] 07/07/2024 11:06 AM CDT Plan of Treatment Upcoming Encounters Date Type Department Care Team (Late st Contact Info) Description 07/08/2025 8:00 AM CDT Office Visit [facility] [place] [address] [facility] [address] [place] [address] Krista Mullen, ERP ENGINEER [address] [facility] [address] [place] [address] Health Maintenance Due Date Last Done Comments Cervical Cancer Screening Pa p Smear (Age 30 to 64) Every 3 Years 1987 Hepatitis C 2005 HPV Vaccines (1 - 3-dose SCD M series) 2014 Hepatitis B Vaccines (2 of 2 - CpG 2-dose series) 07/14/2024 06/16/2024 COVID-19 Vaccine ( - 2024-2 6 season) 2024 Influenza Adult (#1) 2025 Annual Physical 07/07/2025 07/07/2024 DTaP, Tdap and Td Vaccines ( 1 - Tdap) 07/07/2025 Postponed from 05/24 (Patient Refused) Cervical Cancer Screening Chang donald with HPV Testing (Age 30 to 64) Every 5 Years 01/12/2029 01/13/2024 Cervical Cancer Screening with HPV 01/12/2029 PHQ-2 (Physician [place]) Completed 07/07/2024 Hepatitis A Vaccines Aged Out No long er eligible based [...] Procedure Name Priority Date/Time Associated Diagnosis Comments ULTRASOUND GENERIC (SCAN ORDER) 12/19/2024 OUTSIDE CYTOPATH CERV/VAG IN TERPRET (PAP) 01/13/2024 from Last 3 Months or Most Recently Relevant to Health Maintenance Results * ULTRASOUND GENERIC (SCAN ORDER) (12/19/2024) Anatomical Region Laterality Modality Other 12/19/2024 [facility] Scanned SCANNING Final Resu lt * PAP SMEAR WITH HPV (01/13/2024) 01/13/2024 [facility] Scanned SCANNING Final Resu lt from Last 3 Months or Most Recently Relevant to Health Maintenance Insurance [facility] Care Teams Mold Loft Worker Relationship Specialty Start Date End Date Krista Mullen NP [address] [place] [address] PCP - General NURSE PRACTITIONER 12/16/24
--- OUTSIDE RECORDS SUMMARY | 2025-02-28 06:58 | XMS_ITS | Clinical Summary ---
Author Organization [facility] Address [address] [place] [address] Care Team Providers Care Inorganic Chemist Name Role Phone Lucinda Rodgers DO Primary [...] on file Legal Sex Female 8:10 PM TIRE BEADER MAKER Gender Identity Female 08/01/2020 9:48 AM CDT [...] Comments Blood Pressure 121/81 05/06/2024 1:15 PM TIRE BEADER MAKER Pulse 66 05/06/2024 1:15 PM TIRE BEADER MAKER Temperature 37 C (98.6 F) 01/08/2022 9:41 PM CDT Respiratory Rate 18 01/08/2022 9:41 PM CDT Oxygen Saturation 98% 01/08/2022 9:41 PM CDT Inhaled Oxygen Concentration - - Weight 61.1 kg (134 lb 12.8 oz) 05/06/2024 1:15 PM TIRE BEADER MAKER Height 157.5 cm (5' 2) 05/06/2024 1:15 PM TIRE BEADER MAKER Body Mass Index 24.66 05/06/2024 1:15 PM TIRE BEADER MAKER Plan of Treatment Health Maintenance Due Date [...] HEPATITIS C ANTIBODY Routine 05/06/2024 12:57 PM TIRE BEADER MAKER Encounter for screening for infections with predominantly sexual mode of transmission from Last 3 Months or Most Recently Relevant to Health Maintenance Results * Hepatitis C antibody Blood (05/06/2024 12:57 PM TIRE BEADER MAKER) Hep C Ab Nonreactive Nonreactive Comment:Antibodies to HCV no t detected. Does NOT exclude the possibility of recent exposure to HCV. Current interpretive data was last revised on 21 Blood 05/06/2024 12:5 7 PM TIRE BEADER MAKER 05/06/2024 2:13 PM TIRE BEADER MAKER Gianluca Quiroz MD LAB MICROBIOLOGY - GENERAL ORDERABLES Final Result [facility] Department [place] [address] from Last 3 Months or Most Recently Relevant to Health Maintenance Insurance [employer] [facility] [place] [address] [facility] Care Teams Inorganic Chemist Relationship Specialty Start Date End Date Lucinda Rodgers DO PCP - General Family Medicine 05/16/20
--- OUTSIDE RECORDS SUMMARY | 2025-02-28 06:58 | XMS_ITS | Encounter Summary ---
Author Organization [facility] Address [address] [place] [address] Care Team Providers Care Box Turner Name Role Phone Unavailable Primary Care Provider Unavailabl e Encounter Details Date Type Department Care Team (Late st Contact Info) Description 11/13/2024 Lab Requisition [facility] [address] [place] [address] Shilpa Castanon MD [address] [facility] [address] [place] [address] Encounter for test, result unknown Social History Tobacco Use Types Packs/Day Years Used Date Smoking Tobacco: Never Assessed Comments Unknown Sex and Gender Information Value Date Recorded Sex Assigned at Not on file Legal Sex Female 5:45 PM BEHAVIORAL MODIFICATION ASSISTANT Gender Identity Not on file Sexual Orientation Not on file documented as of this encounter Plan of Treatment Upcoming Encounters Date Type Department Care Team (Late st Contact Info) Description 03/01/2025 10:30 AM BEHAVIORAL MODIFICATION ASSISTANT Hospital Encounter [facility] access [facility] [address] [place] [address] Anastasia De Jesus MD [address] [facility] [address] [place] [address] 03/10/2025 1:45 PM BEHAVIORAL MODIFICATION ASSISTANT Appointment Critical access hospital [facility] [address] [place] [address] documented as of this encounter Procedures Procedure Name Priority Date/Time Associated Diagnosis Comments PROGESTERONE STAT 11/13/2024 8:51 AM CDT Encounter for test, result unknown HCG BETA BLOOD QUANTITATIVE STAT 11/13/2024 8:51 AM CDT Encounter for test, result unknown documented in this encounter Results * HCG BETA BLOOD QUANTITATIVE (11/13/2024 8:51 AM CDT) hCG Quantitative 626.17 mIU/mL 11/14/19 12:14 PM CDT [facility] Blood BLOOD SPECIMEN / Unknown Venipuncture / Unknown 11/13/2024 8:51 AM CDT 11/13/2024 10:59 AM CDT Narrative [facility] - 11/13/2024 12:14 PM CDT [...] a serum FSH >20 IU/L makes unlikely. us Shilpa Castanon MD LAB - CHEMISTRY ORDERABLES [facility] Result [facility] [address] [place] [address] * PROGESTERONE (11/13/2024 8:51 AM CDT) Progesterone 56.3 ng/mL 11/13/2024 12:14 PM CDT [facility] Blood BLOOD SPECIMEN / Unknown Venipuncture / Unknown 11/13/2024 8:51 AM CDT 11/13/2024 10:59 AM CDT Narrative [facility] - 11/13/2024 12:14 PM CDT Normal Menstruating Females: Follicular Phase <0.5 ng/mL Luteal Phase 1.2 - 15.9 ng/mL Postmenopausal Females: <0.5 ng/mL Females: First Trimester 2.8 - 147.3 ng/mL Second Trimester 22.5 - 95.3 ng/mL Third Trimester 27.9 - 242.5 ng/mL Males: <0.5 ng/mL us Shilpa Castanon MD LAB - CHEMISTRY ORDERABLES [facility] Result [facility] [address] [place] [address] documented in this encounter Visit Diagnoses Diagnosis Encounter for test, result unknown Advanced maternal age in multigravida, second trimester ([facility] Primary High risk due to assisted reproductive technology in second trimester ([facility]) resulting from in vitro fertilization in second trimester ([facility]) History of loop electrosurgical excision procedure (LEEP) of cervix affecting in second trimester ([facility]) Multigravida of advanced maternal age in second trimester ([facility]) Encounter for anatomic survey ([facility]) Encounter for anatomic survey 20 weeks gestation of ([facility]) state, incidental documented in this encounter
--- OUTSIDE RECORDS SUMMARY | 2025-02-28 06:58 | XMS_ITS | Patient Health Record ---
Author Organization [facility] Address [address] [place] [address] Care Team Providers Care Mysql Database Developer Name Role Phone Lacy Alicia Primary Care Provider [phone] Allergies No Known Allergies Reason For Referral [...] 12/25/2023 Active Vitamin D (Ergocalciferol) 1.25 MG (74572 UT) TAKE 1 CAPSULE BY MOUTH 1 [...] Status Risk Notes Problem Vitamin D deficiency (91773241) Vitamin D deficiency, unspecified (E55.9) Active confirmed Problem Tobacco user (764180162) Nicotine dependence, unspecified, uncomplicated (F17.200) Active confirmed Problem Abnormal uterine bleeding (46136203323246) Abnormal uterine and vaginal bleeding, unspecified (N93.9) Active confirmed Problem Gastroesophageal reflux disease (157591260) GERD (gastroesophagea l reflux disease) (K21.9) Active confirmed Problem Vitamin D deficiency (29174203) Vitamin D deficiency (E55.9) Active confirmed Problem (17613223) (Z33.1) Active confirmed Problem Impacted cerumen of both ears (8433177403547068) Impacted cerumen of both ears (H61.23) Active confirmed Problem Migraine without aura, not refractory (213878937) Migraine without aura and without status migrainosus, not intractable (G43.009) Active confirmed Problem Family planning (434503335) Family planning (Z30.09) Active confirmed Problem Tobacco use (138157676) Tobacco use disorder (F17.200) Active confirmed Problem Right tubal without intrauterine (O00.101) Active confirmed Problem Left tubal with intrauterine (O00.112) Active confirmed Problem Seasonal allergic rhinitis (757893915) Seasonal allergic rhinitis, unspecified trigger (J30.2) Active confirmed Plan Of Treatment No Information Insurance Providers Payer Name Payer Address Payer Phone Subscriber Number Group Number Insured Name Patient Relationship to Insured Coverage Start Date Coverage End Date [facility] [address] [place] [address] [id number] Geena Preston Self - patient is the insured 3 4 [facility] [address] [place] [address] [id number] Geena Preston Self - patient is the insured 4 [facility] [address] [place] [address] [id number] Geena Preston Self - patient is the insured 3 3 [facility] [address] [address] [place] [address] [id number] Geena Preston Self - patient is the insured 3 3 [facility] Attn Claims Department [address] [place] [address] [phone] [id number] Geena Preston Self - patient is the insured 1 3 Medical (General) History Medical History History ICD Code Right tubal without intrauteri ne O00.101 Left tubal with intrauterine p regnancy O00.112 Surgical History Surgery Date(Month/Year) L ankle pins Hospitalization History Reason Date(Month/Year)
[2025-02-28 07:09] VITALS: BP 138/70; PULSE 86; RESP 20; TEMP 36.4; O2SAT 100
--- NOTE | 2025-02-28 07:11 | ED.GENADULT ---
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 Patient states symptoms are worse in the morning. Patient reports symptoms do improved during the day. Patient denies any specific falls or injuries. Patient denies any numbness but only reports tingling. Patient has no weakness. Patient denies any falls or injuries. Patient denies any other neurologic symptoms. Patient states sometimes symptoms to happen on the right but they are primarily and the left hand. Patient denies any vaginal bleeding vaginal discharge. Patient denies any abdominal cramping. Related Data Home Medications ?Medication ?Instructions ?Recorded ?Confirmed ?Last Taken ?Type cholecalciferol (vitamin D3) 250 250 mcg PO WEEKLY 01/13/24 01/14/25 05/18/24 History mcg (10,000 unit) capsule Allergies Allergy/AdvReac Type Severity Reaction Status Date / Time No Known Allergies Allergy Verified 02/28/25 07:15 Review of Systems Review of Systems: All systems reviewed & are unremarkable except as noted in HPI and below PMFSH Past Medical History Medical History Ectopic Vitamin D deficiency Surgical History Surgical History H/O LEEP History of salpingectomy (~2014) ectopic History of salpingectomy (~2011) ectopic Family History Family History Father Cerebrovascular accident Mother Uterine cancer Pancreatic cancer Grandparent Diabetes mellitus Maternal and paternal grandmother Asthma Social History Social History Years smoked: 15 Tobacco type: cigars Smoking end date: 03/16/24 Additional smoking assessment comments: Smoked Black and Milds. One would last all day. 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 HEAD: normocephalic, atraumatic. EYES: PERRLA/EOMI, conjunctivae clear. NOSE: Normal no drainage EARS:TMS clear with good light reflex. THROAT: Pharynx clear, no exudate. NECK: Supple. No adenopathy, no masses. RESPIRATORY: Airway patent, respirations nonlabored. Clear to auscultation bilaterally, no rales, rhonchi, wheezing. CARDIOVASCULAR: Regular rate and rhythm without murmurs rubs or gallops. ABDOMINAL: Soft, nontender, nondistended, normal bowel sounds MUSCULOSKELETAL: Moves all extremities. Strength/ROM intact, No edema, No calf tenderness. NEURO: Normal strength and reflex as, intact to light sensation, positive Phalen test the left SKIN: Warm, dry. Normal Color Course Vital Signs Vital signs: Vital Signs Temperature 97.6 F 02/28/25 07:09 Pulse Rate 86 02/28/25 07:09 Respiratory Rate 20 02/28/25 07:09 Blood Pressure 138/70 02/28/25 07:09 Pulse Oximetry 100 02/28/25 07:09 Oxygen Delivery Room Air 02/28/25 07:09 Temperature 97.6 F 02/28/25 07:09 Pulse Rate 80 02/28/25 08:24 Respiratory Rate 20 02/28/25 08:24 Blood Pressure 111/72 02/28/25 08:24 Pulse Oximetry 100 02/28/25 08:24 Oxygen Delivery Room Air 02/28/25 07:09 Medical Decision Making MDM Narrative Medical decision making narrative: 39-year-old female present to the emergency department for evaluation for left hand tingling that is worsened and the morning after sleeping. Symptoms to approve during the day. Patient did have positive Phalen test. 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 Patient is approximately 5 months but has no current issues. patient will be provided outpatient follow-up with hand surgery. Differential Diagnosis Differential Diagnosis: CVA, TIA, repetitive use injury, carpal tunnel syndrome Vital Signs Vital Signs: Vital Signs Temperature 97.6 F 02/28/25 07:09 Pulse Rate 86 02/28/25 07:09 Respiratory Rate 20 02/28/25 07:09 Blood Pressure 138/70 02/28/25 07:09 Pulse Oximetry 100 02/28/25 07:09 Oxygen Delivery Room Air 02/28/25 07:09 Temperature 97.6 F 02/28/25 07:09 Pulse Rate 80 02/28/25 08:24 Respiratory Rate 20 02/28/25 08:24 Blood Pressure 111/72 02/28/25 08:24 Pulse Oximetry 100 02/28/25 08:24 Oxygen Delivery Room Air 02/28/25 07:09 Discharge Plan Discharge Clinical Impression: Carpal tunnel syndrome Patient Disposition: Home Condition: Stable Instructions: Antibiotic Form, Carpal Tunnel Syndrome (DC) Additional Instructions: Volar splint on left wrist as directed. Have close follow-up with the hand specialist. Tylenol for pain control. Avoid repetitive use of the left hand and wrist. If you have any worsening symptoms please call or return to the emergency department. Patient Language: Mohawk Prescriptions: No Action folic acid 1 mg tablet 1 mg PO DAILY Qty: 60 0RF cholecalciferol (vitamin D3) 250 mcg (10,000 unit) capsule 250 mcg PO WEEKLY PNV no.95-ferrous fumarate-FA [] 28 mg iron- 800 mcg tablet 1 tablet PO DAILY Qty: 90 2RF Follow-up/Referrals: aKren Ron MD [Physician, Plastic Surgery] Ashok,Kimberly Bustos DO [Primary Care Provider, Unknown] Stand Alone Forms: Work/School Release IP
--- OUTSIDE RECORDS SUMMARY | 2025-02-28 07:46 | XMS_ITS | Encounter Summary ---
Author Organization [facility] Address [address] [place] [address] Care Team Providers Care Global Logistics Analyst Name Role Phone Unavailable Primary Care Provider Unavailabl e Encounter Details Date Type Department Care Team (Late st Contact Info) Description 11/13/2024 Lab Requisition [facility] [address] [place] [address] Shilpa Castanon MD [address] [facility] [facility] [address] [place] [address] Encounter for test, result unknown Social History Tobacco Use Types Packs/Day Years Used Date Smoking Tobacco: Never Assessed Comments Unknown Sex and Gender Information Value Date Recorded Sex Assigned at Not on file Legal Sex Female 5:45 PM OVERLOCK OPERATOR Gender Identity Not on file Sexual Orientation Not on file documented as of this encounter Plan of Treatment Upcoming Encounters Date Type Department Care Team (Late st Contact Info) Description 03/01/2025 10:30 AM OVERLOCK OPERATOR Hospital Encounter [facility] [address] [place] [address] Anastasia De Jesus MD [address] [facility] [address] [place] [address] 03/10/2025 1:45 PM OVERLOCK OPERATOR Appointment [facility] [address] [place] [address] documented as of this encounter Procedures Procedure Name Priority Date/Time Associated Diagnosis Comments PROGESTERONE STAT 11/13/2024 8:51 AM CDT Encounter for test, result unknown HCG BETA BLOOD QUANTITATIVE STAT 11/13/2024 8:51 AM CDT Encounter for test, result unknown documented in this encounter Results * HCG BETA BLOOD QUANTITATIVE (11/13/2024 8:51 AM CDT) hCG Quantitative 626.17 mIU/mL 11/14/19 12:14 PM CDT [facility] Blood BLOOD SPECIMEN / Unknown Venipuncture / Unknown 11/13/2024 8:51 AM CDT 11/13/2024 10:59 AM CDT Narrative [facility] - 11/13/2024 12:14 PM CDT [...] Shilpa Castanon MD LAB - CHEMISTRY ORDERABLES [facility] Result [facility] [address] [place] [address] * PROGESTERONE (11/13/2024 8:51 AM CDT) Progesterone 56.3 ng/mL 11/13/2024 12:14 PM CDT [facility] Blood BLOOD SPECIMEN / Unknown Venipuncture / Unknown 11/13/2024 8:51 AM CDT 11/13/2024 10:59 AM CDT Narrative [facility] - 11/13/2024 12:14 PM CDT Normal Menstruating Females: Follicular Phase <0.5 ng/mL Luteal Phase 1.2 - 15.9 ng/mL Postmenopausal Females: <0.5 ng/mL Females: First Trimester 2.8 - 147.3 ng/mL Second Trimester 22.5 - 95.3 ng/mL Third Trimester 27.9 - 242.5 ng/mL Males: <0.5 ng/mL us Shilpa Castanon MD LAB - CHEMISTRY ORDERABLES [facility] Result [facility] [address] [place] [address] documented in this encounter Visit Diagnoses Diagnosis Encounter for test, result unknown Advanced maternal age in multigravida, second trimester ([facility])- Primary High risk due to assisted reproductive technology in second trimester ([facility]) resulting from in vitro fertilization in second trimester ([facility]) History of loop electrosurgical excision procedure (LEEP) of cervix affecting in second trimester ([facility]) Multigravida of advanced maternal age in second trimester ([facility]) Encounter for anatomic survey ([facility]) Encounter for anatomic survey 20 weeks gestation of ([facility]) state, incidental documented in this encounter
--- OUTSIDE RECORDS SUMMARY | 2025-02-28 07:47 | XMS_ITS | Clinical Summary ---
Author Organization [facility] Address [address] [place] [address] Care Team Providers Care Social Science Instructor Name Role Phone Krista Mullen NP Primary Care Provider [phone] Allergies No known active allergies Medications VITAMINS [...] 12:40 PM CDT): Requesting records from patient's PICKLING MACHINE OPERATOR Dr. Byron Li MD. Assessment & Plan (06/16/2024 1:49 PM ACCOUNTING MANAGER CPA): Requesting records from patient's PICKLING MACHINE OPERATOR Dr. Byron Li MD. History of ectopic 06/16/2024 Overview (06/16/2024): Initial visit: She reports she has had two ectopic pregnancies in the past. First in 2011 and second in 2015. Status post loop electrosurg ical excision procedure (LEEP) of cervix 06/16/2024 Overview (06/16/2024): Initial visit 06/16/2024: She had LEEP procedure 05/22/[address]PERATOR [address] Byron Li MD and results showed no residual/recurrent squamous intraepithelial lesion. She reports she was told to follow-up in 1 year. Assessment & Plan (06/16/2024 1:56 PM ACCOUNTING MANAGER CPA): Is to follow-up for repeat Pap in [...] taking daily multivitamin and can take additional [id number] vitamin D3 supplementation 1000- 2000 IU daily. Assessment & Plan (06/16/2024 1:47 PM ACCOUNTING MANAGER CPA): Vitamin D levels ordered. Family history of cervical cancer 06/16/2024 Overview (06/16/2024): Initial visit 06/16/2024: She reports her mother had cervical cancer that spread into her pelvis and abdomen. Family history of coronary artery disease in fat her 06/16/2024 Overview (06/16/2024): Initial visit 06/16/2024: Patient's father from [place] at young age less than 50. Need [...] 07/14/2024 Assessment & Plan (06/16/2024 1:55 PM ACCOUNTING MANAGER CPA): I recommend patient participate in hepatitis B [...] is initiating treatment with fertility specialist through [facility] this year and hoping to [...] Known Problems Brother Coronary artery disease Father [place] Pancreatic cancer Maternal Aunt Cancer Maternal Grandfather [...] Sex Assigned at Female 06/16/2024 10:22 AM ACCOUNTING MANAGER CPA Legal Sex Female 10:43 AM ACCOUNTING MANAGER CPA Gender Identity Female 06/16/2024 10:22 AM ACCOUNTING MANAGER CPA Sexual Orientation Not on file Last Filed [...] Description 07/08/2025 8:00 AM CDT Office Visit [facility] [place] [address] [place] [address] Krista Mullen, PRODUCT SAFETY TECHNICIAN [address] [place] [address] Health Maintenance Due Date Last Done Comments [...] Cancer Screening with HPV 01/12/2029 PHQ-2 (Physician [place]) Completed 07/07/2024 Hepatitis A Vaccines Aged Out [...] (12/19/2024) Anatomical Region Laterality Modality Other 12/19/2024 [facility] Scanned SCANNING Final Resu lt * PAP SMEAR WITH HPV (01/13/2024) 01/13/2024 [facility] Scanned SCANNING Final Resu lt from Last 3 Months or Most Recently Relevant to Health Maintenance Insurance [facility] Care Teams Social Science Instructor Relationship Specialty Start Date End Date Krista Mullen NP [address] [place] [address] PCP - General NURSE PRACTITIONER 12/16/24
--- OUTSIDE RECORDS SUMMARY | 2025-02-28 07:47 | XMS_ITS | Clinical Summary ---
Author Organization [facility] Address [address] [place] [address] Care Team Providers Care Steeple Jack Name Role Phone Lucinda Rodgers DO Primary [...] on file Legal Sex Female 8:10 PM VIDEO GAME ENGINEER Gender Identity Female 08/01/2020 9:48 AM CDT [...] Comments Blood Pressure 121/81 05/06/2024 1:15 PM VIDEO GAME ENGINEER Pulse 66 05/06/2024 1:15 PM VIDEO GAME ENGINEER Temperature 37 C (98.6 F) 01/08/2022 9:41 PM CDT Respiratory Rate 18 01/08/2022 9:41 PM CDT Oxygen Saturation 98% 01/08/2022 9:41 PM CDT Inhaled Oxygen Concentration - - Weight 61.1 kg (134 lb 12.8 oz) 05/06/2024 1:15 PM VIDEO GAME ENGINEER Height 157.5 cm (5' 2) 05/06/2024 1:15 PM VIDEO GAME ENGINEER Body Mass Index 24.66 05/06/2024 1:15 PM VIDEO GAME ENGINEER Plan of Treatment Health Maintenance Due Date [...] HEPATITIS C ANTIBODY Routine 05/06/2024 12:57 PM VIDEO GAME ENGINEER Encounter for screening for infections with predominantly sexual mode of transmission from Last 3 Months or Most Recently Relevant to Health Maintenance Results * Hepatitis C antibody Blood (05/06/2024 12:57 PM VIDEO GAME ENGINEER) Hep C Ab Nonreactive Nonreactive Comment:Antibodies to HCV no t detected. Does NOT exclude the possibility of recent exposure to HCV. Current interpretive data was last revised on 21 Blood 05/06/2024 12:5 7 PM VIDEO GAME ENGINEER 05/06/2024 2:13 PM VIDEO GAME ENGINEER Gianluca Quiroz MD LAB MICROBIOLOGY - GENERAL ORDERABLES Final Result [facility] Department [place] [address] from Last 3 Months or Most Recently Relevant to Health Maintenance Insurance [employer] [facility] [place] [address] [facility] Care Teams Steeple Jack Relationship Specialty Start Date End Date Lucinda Rodgers DO PCP - General Family Medicine 05/16/20
[2025-02-28 08:24] VITALS: BP 111/72; PULSE 80; RESP 20; O2SAT 100
== END 2025-02-28 08:25 | disposition home or self-care (01) ==
PROVIDERS: Emergency Provider Emergency Medicine; PCP Family Medicine
DX: O99.352 Diseases of the nervous system complicating pregnancy, second trimester (principal); G56.02 Carpal tunnel syndrome, left upper limb; O99.282 Endocrine, nutritional and metabolic diseases complicating pregnancy, second trimester; E55.9 Vitamin D deficiency, unspecified; Z87.891 Personal history of nicotine dependence; Z90.79 Acquired absence of other genital organ(s); Z3A.19 19 weeks gestation of pregnancy
CPT/HCPCS: 99281

== ENCOUNTER 2025-03-04 12:28 | Outpatient (RCR) | payer OTHER, SELFPAY ==
--- NOTE | 2025-03-04 13:25 | OTOPEVAL1 ---
Assessment and note entered by Benny Castaneda, SHAREE/Tito, CHT Evaluation Information Assessment Status Evaluation Diagnosis Carpal tunnel syndrome ICD-10 Condition Codes (OT) Pain in right hand M79.641,Pain in left hand M79. 642,Paresthesia of skin R20.2 Subjective Information Patient reports symptoms for years, but recently the pain and paresthesia has become much worse and has become constant. She is left handed. 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 He is currently not working due to her symptoms. 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 She reports left is worse than right. She has a wrist brace but reports the brace causes her pain and numbness to be worse. Patient is also 5 months . Reported Pain Level Pain Score 5: Self Report Assessment OT Clinical Summary Patient referred to OT with dx of bilateral carpal tunnel syndrome, left worse than right. 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 She presents with positive upper limb tension tests in bilateral UEs, left worse than right. Functionally she is very limited with left/ dominant UE use for ADLs, being unable to supervisor irrigation or lift items due to the pain and paresthesia. Skilled OT indicated to reduce pain, improve functional soft tissue extensibility, improve functional strength, and return to UE use for ADLs and work tasks. Plan of Care Interventions Therapeutic Exercise,Manual Therapy,Neuro Re- education,Therapeutic Activities,Hot Pack/Cold Pack,Check Out for Orthotic/Prosthetic,Paraffin OT Services Indicated Yes Treatment Frequency and 2x/week for 8 visits Duration These treatments will address the objective and functional deficits as defined above. The patient will be advanced safely and appropriately in order for the patient to progress towards his/her prior level of function. Additional exercises will be introduced and as well as a comprehensive home exercise program upon discharge, if needed, ?to ensure carryover of functional gains achieved in the clinic. This treatment plan has been reviewed and agreement upon by the patient.
--- NOTE | 2025-03-04 13:25 | OPREHPOC ---
Outpatient Therapy Plan of Care This is a Multidisciplinary Plan of Care that may contain components documented by all disciplines (PT, OT, and ST.) OT Problem 1 OT Problem #1 Knowledge Deficit OT Goal 1 Goal / Goal Update 1. Patient to be independent with instructed materials. Target Visit 8 OT Problem 2 OT Problem #2 Pain OT Goal 1 Goal / Goal Update 1. Patient to report reduced bilateral hand pain to 2/10 or less with ADLs. 2. Patient to report reduced nighttime pain for improved sleep. Target Visit 8 OT Problem 3 OT Problem #3 Impaired Range of Motion OT Goal 1 Goal / Goal Update 1. Patient to be able to progress to full ROM with wall angels and open book exercise to improve functional soft tissue flexibility and reduced pain during ADLs. Target Visit 8 OT Problem 4 OT Problem #4 Impaired Sensation OT Goal 1 Goal / Goal Update 1. Patient to be able to complete bilateral upper limb tension test for the median nerve without onset of paresthesia. Target Visit 8
--- NOTE | 2025-03-09 14:06 | OTOPDC ---
Assessment and note entered by Benny Castaneda, OTR/Tito, CHT OT D/C 03/09/25 OT Clinical Summary Patient referred to OT with dx of bilateral carpal tunnel syndrome, left worse than right. 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 Patient called today to cancel all of her appointments and requested to be discharged. She attended 1 OT appointment. D/C per patient request.
== END 2025-03-10 07:39 | disposition home or self-care (01) ==
LOC: ANHGOSHOT 12:28
PROVIDERS: PCP Family Medicine; Visit Provider Plastic Surgery
DX: G56.03 Carpal tunnel syndrome, bilateral upper limbs (principal)
CPT/HCPCS: 97110; 97166